=== PATIENT | female | born 1935 | race Caucasian/White ===

== ENCOUNTER 2019-01-28 11:33 | Inpatient (IN) | payer MEDICARE, BC ==
[2019-01-28] MEDS ORDERED: Sodium Chloride 0.9% 1,000 ML IV SCH (12:15)
[2019-01-28] MEDS ORDERED: Piperacillin/Tazobactam 3.375 GM in Sodium Chloride 0.9% 100 ML IV SCH (12:15)
--- NOTE | 2019-01-28 12:32 | PCM.HP ---
H&P History of Present Illness - General Date of Service: 01/28/19 Admit Problem/Dx: Admission Diagnosis/Problem Admission Diagnosis/Problem Cellulitis and abscess of finger Source of Information: Patient History Limitations: Reports: No Limitations - History of Present Illness Initial Comments - Free Text/Narative: Initially evaluated in the clinic for increasing redness and swelling to the R 4th finger. Monday had pulled at at piece of extra tissue at the side/tip of the nail ("hangnail"). Monday started noticing some redness, worse yesterday with swelling. Today the hand was generally swollen, and redness had developed going back up the hand just this morning. Patient has severely limited sensation to all extremities d/t neuropathy and is experiencing no pain. She denies any other trauma to this finger. Onset of Symptoms: Reports: Gradual Symptom Onset Date: 01/26/19 Duration of Symptoms: Reports: Day(s): Location: Reports: Upper Extremity, Right Improves with: Reports: None Worsens with: Reports: None Associated Symptoms: Reports: No Other Symptoms - Related Data Allergies/Adverse Reactions: Allergies Allergy/AdvReac Type Severity Reaction Status Date / Time No Known Allergies Allergy Verified 01/28/19 12:45 Home Medications: Home Meds Cholecalciferol (Vitamin D3) [Vitamin D3] 1,000 unit PO DAILY 12/30/14 [History] Gemfibrozil 600 mg PO BID 12/30/14 [History] Multivitamin [Daily Multiple Vitamin] 1 tab PO DAILY 12/30/14 [History] Propranolol [Propranolol CR 24 Hr] 120 mg PO BID 12/30/14 [History] Triamterene/Hydrochlorothiazid [Triamterene-HCTZ 75-50 MG] 1 each PO DAILY 12/30 [History] metFORMIN [Glucophage] 1 tab-cap PO ASDIRECTED 12/30/14 [History] traMADol [Ultram] 50 mg PO Q4H PRN 12/30/14 [History] Aspirin 0.5 tab PO DAILY 01/28/19 [History] Past Medical History HEENT History: Reports: Impaired Vision Other HEENT History: wears glasses Cardiovascular History: Reports: Heart Murmur, High Cholesterol, Hypertension Respiratory History: Reports: None Gastrointestinal History: Reports: Hepatitis Other Gastrointestinal History: h/o hepatitis Genitourinary History: Reports: None Musculoskeletal History: Reports: Gout Neurological History: Reports: Neuropathy, Peripheral Endocrine/Metabolic History: Reports: Diabetes, Type II - Past Surgical History GI Surgical History: Reports: Appendectomy Female Surgical History: Reports: Breast Biopsy (left and right) H&P Review of Systems - Review of Systems: Review Of Systems: ROS reveals no pertinent complaints other than HPI. Exam - Exam Exam: See Below - Vital Signs Vital Signs: Last Vital Signs Temp 98.3 F 01/28/19 11:56 Pulse 78 01/28/19 11:56 Resp 16 01/28/19 11:56 BP 147/71 H 01/28/19 11:56 Pulse Ox 97 01/28/19 11:56 - Exam General: Alert, Oriented, 4 HEENT: Hearing Intact, Mucosa Moist & [place], Pupils Reactive Neck: Supple, Trachea Midline, 2 Lungs: Clear to Auscultation, Normal Respiratory Effort Cardiovascular: Regular Rate, Regular Rhythm, Systolic Murmur GI/Abdominal Exam: Normal Bowel Sounds, Soft, Non-Tender (Female) Exam: Deferred Rectal (Female) Exam: Deferred Back Exam: Normal Inspection, Full Range of Motion, NT Extremities: No Pedal Edema, Other (see R hand description below) Skin: Warm, Dry, Wound (draining wound distal tip of R 4th finger), Other ( significant heat, swelling and erythema to the R 4th finger. Generalized milder swelling and heat to the hand with erythema tracking back proximally. ) Neurological: Cranial Nerves Intact Neuro Extensive - Mental Status: Alert, Oriented x3, Normal Mood/Affect, Normal Cognition Psychiatric: Alert, Normal Affect, Normal Mood - Problem List (1) Cellulitis and abscess of hand SNOMED Code(s): 763637180, 591484681 ICD Code: L03.119 - CELLULITIS OF UNSPECIFIED PART OF LIMB; L02.519 - CUTANEOUS ABSCESS OF UNSPECIFIED HAND Status: Acute Priority: High Current Visit: Yes Onset Date: ~01/26/19 Problem Details: R 4th finger, acute (2) Diabetes mellitus SNOMED Code(s): 06478319 ICD Code: E11.9 - TYPE 2 DIABETES MELLITUS WITHOUT COMPLICATIONS Status: Chronic Priority: Medium Current Visit: Yes Qualifiers: Diabetes mellitus type: type 2 Diabetes mellitus complication status: with neurologic complications Diabetes mellitus complication detail: with polyneuropathy (3) HTN (hypertension) SNOMED Code(s): 52596097 ICD Code: I10 - ESSENTIAL (PRIMARY) HYPERTENSION Status: Chronic Priority : Medium Current Visit: Yes Qualifiers: Hypertension type: essential hypertension Qualified Code(s): I10 - Essential (primary) hypertension (4) Hyperlipidemia SNOMED Code(s): 69187171 ICD Code: E78.5 - HYPERLIPIDEMIA, UNSPECIFIED Status: Chronic Priority: Low Current Visit: Yes (5) Neuropathy SNOMED Code(s): 300363131 ICD Code: G62.9 - POLYNEUROPATHY, UNSPECIFIED Status: Chronic Priority: Medium Current Visit: Yes Problem List Initiated/Reviewed/Updated: Yes Orders Last 24hrs: Active Orders 24 hr Category Date Time Status Patient Status [ADT] Routine ADT 01/28/19 11:55 Ordered Antiembolic Devices [RC] PER UNIT ROUTINE Care 01/28/19 12:06 Ordered Height and Weight [RC] UPON Care 01/28/19 11:55 Ordered Intake and Output [RC] QSHIFT Care 01/28/19 12:03 Ordered May Shower [RC] ASDIRECTED Care 01/28/19 11:55 Ordered Oxygen Therapy [RC] PRN Care 01/28/19 11:55 Ordered Peripheral IV Care [RC] . DIRECTED Care 01/28/19 12:06 Ordered Up ad Zina [RC] ASDIRECTED Care 01/28/19 11:55 Ordered VTE/DVT Education [RC] PER UNIT ROUTINE Care 01/28/19 11:55 Ordered Vital Signs [RC] Q4H Care 01/28/19 11:55 Ordered [employer] [employer] Diet [DIET] Diet 01/28/19 Lunch Ordered Fingers Fourth Digit Rt F8 [CR] Routine Exams 01/28/19 12:06 Ordered C-REACTIVE PROTEIN [CHEM] AM Lab 01/29/19 05:11 Ordered C-REACTIVE PROTEIN [CHEM] AM Lab 01/30/19 05:11 Ordered C-REACTIVE PROTEIN [CHEM] AM Lab 01/31/19 05:11 Ordered C-REACTIVE PROTEIN [CHEM] AM Lab 02/01/19 05:11 Ordered CBC WITH AUTO DIFF [HEME] AM Lab 01/29/19 05:11 Ordered CBC WITH AUTO DIFF [HEME] AM Lab 01/30/19 05:11 Ordered CBC WITH AUTO DIFF [HEME] AM Lab 01/31/19 05:11 Ordered CBC WITH AUTO DIFF [HEME] AM Lab 02/01/19 05:11 Ordered COMPREHENSIVE METABOLIC PN,CMP [CHEM] AM Lab 01/29/19 05:11 Ordered COMPREHENSIVE METABOLIC PN,CMP [CHEM] AM Lab 01/30/19 05:11 Ordered COMPREHENSIVE METABOLIC PN,CMP [CHEM] AM Lab 01/31/19 05:11 Ordered COMPREHENSIVE METABOLIC PN,CMP [CHEM] AM Lab 02/01/19 05:11 Ordered CULTURE BLOOD [BC] Stat Lab 01/28/19 12:06 Ordered CULTURE BLOOD [BC] Stat Lab 01/28/19 12:06 Ordered CULTURE WOUND + SMEAR [RM] Routine Lab 01/28/19 12:16 Ordered Pharmacy to Dose - Vancomycin Med 01/28/19 12:30 Ordered 1 dose .XX ASDIRECTED Sodium Chloride 0.9% @ 75 MLS/HR(1000ml) Med 01/28/19 12:15 Ordered Sodium Chloride 0.9% [Normal Saline] 1,000 ml IV ASDIRECTED Sodium Chloride 0.9% [Saline Flush] Med 01/28/19 11:55 Ordered 10 ml FLUSH ASDIRECTED PRN cefTAZidime Pentahydrate [Fortaz] Med 01/28/19 16:00 Ordered 1 gm IVPUSH Q8HR Antiembolic Hose [OM.PC] Per Unit Routine Oth 01/28/19 12:04 Ordered Blood Culture x2 Reflex Set [OM.PC] Stat Oth 01/28/19 11:55 Ordered Peripheral IV Insertion Adult [OM.PC] Routine Oth 01/28/19 11:55 Ordered Resuscitation Status Routine Resus Stat 01/28/19 11:55 Ordered Medication Orders Ceftazidime (Fortaz) 1 gm IVPUSH Q8HR PEG Sodium Chloride (Normal Saline) 1,000 mls @ 75 mls/hr IV ASDIRECTED PEG Sodium Chloride (Saline Flush) 10 ml FLUSH ASDIRECTED PRN PRN Reason: Keep Vein Open Vancomycin HCl (Pharmacy To Dose - Vancomycin) 1 dose .XX ASDIRECTED PEG Assessment/Plan Comment:: 01-28-19 Julio Brown PA-C 83 yr-old female admitted to status under the medical management of Dr. Gupta for acute R 4th finger cellullitis, concern for sepsis or osteomyelitis. White count is 18.7. CRP 32.1. Sed rate still pending. Dr. Gupta consulted at the time of admit. Starting IV Vanco and Fortaz. Sample of drainage from the tip of the finger obtained for C&S. This elderly patient with the complications of DM and neuropathy will need at least 96 hours of IP treatment for this acute infection.
[2019-01-28] MEDS: cefTAZidime 1 GM Vial IVPUSH SCH (14:22)
[2019-01-28] MEDS: Sodium Chloride 0.9% 10 ML Syringe FLUSH PRN (14:23)
[2019-01-28] MEDS: traMADol 50 MG Tab PO PRN ×2 (16:47→22:27)
[2019-01-28] MEDS: metroNIDAZOLE/Normal Saline 500 MG in Premix Bag 1 BAG IV SCH (16:50)
[2019-01-28] MEDS: Propranolol 60 MG Cap.ER PO SCH (17:44)
[2019-01-28] MEDS: Gemfibrozil 600 MG Tab PO SCH (17:45)
[2019-01-28] MEDS: metFORMIN 500 MG Tab PO SCH (17:46)
--- NOTE | 2019-01-28 21:28 | PCM.PRNOTE ---
- Free Text/Narrative Note: Patient sustained fall-related laceration over left side of nose that extended over midline. 4cm, irregular, full thickness. Cleansed with betadine. 3cc Lidocaine 1 % injected into wound margins for anesthesia. No debris noted. Closed with 7 interrupted 4-0 nylon sutures externally. Topical antibiotic and dressing applied by nursing staff
[2019-01-28] MEDS ORDERED: Bacitracin/Neomycin/Polymyxin B Oint 0.9 GM U/D Packet TOP ONE (21:46)
[2019-01-29] MEDS: metroNIDAZOLE/Normal Saline 500 MG in Premix Bag 1 BAG IV SCH ×3 (00:50→16:27)
[2019-01-29] MEDS: cefTAZidime 1 GM Vial IVPUSH SCH ×2 (02:10→14:24)
[2019-01-29] MEDS: Sodium Chloride 0.9% 10 ML Syringe FLUSH PRN ×2 (02:10→14:25)
--- NOTE | 2019-01-29 03:02 | PCM.SN ---
- Free Text/Narrative Note: Patient fell in room this evening, blames it on "stepping on pajamas". Fell to the ground, denies hitting any furniture. Had no LOC, but did injure nose. Denies other injuries, such as injuries to limbs/trunk. Laceration of nose noted. Denies hitting other parts of head. No pain in C-spine or rest of spine. On exam there was a 4cm laceration across patient's mid/lower nose. Palpation did not show any laxity of nasal bones. No pain/depression noted with palpation of skull. Neck and spine nontender. Orbits appear intact as do maxillary regions. No obvious dental trauma. Patient able to open and close jaw well. Early swelling and bruising around nose and left cheek area. No respiratory distress. Brisk cap refill. Limbs/abdomen non-tender. Patient able to move around well and transfer self. Laceration closed as per procedure note. CT of face obtained. Confirmed nasal bone fracture on left. Also noted small subdural hematoma. CT of entire head then obtained, and no further additional bleeds identified. No other injuries identified. Discussed the small subdural with on-call Neurosurgeon at [place]. He did not recommend any additional evaluation of the bleed at this time, nor did he specify a need to repeat the scan at any particular interval. Neuro checks ordered on patient. Consider re-scan in 24-48 hours to verify that small bleed remains stable and has not changed.
[2019-01-29] MEDS: Hydrochlorothiazide/Triamterene 50-75 MG Tab PO SCH (07:47)
[2019-01-29] MEDS: Propranolol 60 MG Cap.ER PO SCH ×2 (07:47→17:13)
[2019-01-29] MEDS: metFORMIN 500 MG Tab PO SCH ×2 (07:47→17:13)
[2019-01-29] MEDS: Gemfibrozil 600 MG Tab PO SCH ×2 (07:47→17:13)
[2019-01-29] MEDS ORDERED: Aspirin 325 MG Tab PO SCH (08:00)
[2019-01-29] MEDS: traMADol 50 MG Tab PO PRN ×2 (16:24→21:01)
[2019-01-29] MEDS: Sodium Chloride 0.9% 10 ML Syringe FLUSH SCH (19:48)
--- NOTE | 2019-01-29 22:58 | PCM.PN ---
- General Info Date of Service: 01/29/19 Admission Dx/Problem (Free Text): Admission Diagnosis/Problem Admission Diagnosis/Problem Cellulitis and abscess of finger Functional Status: Reports: Pain Controlled, Tolerating Diet - Review of Systems General: Reports: Other (fall last night tripped on [employer]) HEENT: Reports: Other (ecchymosis left periorbital, repaired laceration left side of nose) Pulmonary: Reports: No Symptoms Cardiovascular: Reports: No Symptoms Gastrointestinal: Reports: No Symptoms Genitourinary: Reports: No Symptoms Musculoskeletal: Reports: Foot Pain (chronic), Other (right 4th finger swollen, decreased ROM ) Skin: Reports: Cyanosis (right 4th finger, redness, blackened on end) Neurological: Reports: Numbness (hands, fingers, feet and toes all bilateral), Paresthesia (hands, fingers, feet, toes all bilateral), Pre-Existing Deficit, Difficulty Walking (due to neuropathy) Psychiatric: Reports: No Symptoms - Patient Data Vitals - Most Recent: Last Vital Signs Temp 97.9 F 01/29/19 19:48 Pulse 73 01/29/19 19:48 Resp 18 01/29/19 19:48 BP 141/71 H 01/29/19 19:48 Pulse Ox 97 01/29/19 19:48 Weight - Most Recent: 115 lb 14.387 oz I&O - Last 24 Hours: Intake & Output 01/29/19 01/29/19 01/29/19 06:59 14:59 22:59 Intake Total 96 845 1625 Output Total 400 1100 Balance 96 445 525 Lab Results Last 24 Hours: Laboratory Results - last 24 hr 01/29/19 01/29/19 Range/Units 06:53 06:53 WBC 12.7 H (4.0-10.2) K/uL RBC 2.90 L (3.77-5.09) M/uL Hgb 9.4 L (11.7-15.5) g/dL Hct 26.8 L (34.0-46.0) % MCV 92.4 (84.0-98.0) fL MCH 32.4 (28.2-33.3) pg MCHC 35.1 (31.7-36.0) g/dL RDW 12.8 (11.2-14.1) % Plt Count 183 (150-350) K/uL Neut % (Auto) 76.3 (45.0-80.0) % Lymph % (Auto) 13.2 (10.0-50.0) % Schuyler % (Auto) 9.7 (2.0-14.0) % Eos % (Auto) 0.6 (0.0-5.0) % Baso % (Auto) 0.2 (0.0-2.0) % Neut # (Auto) 9.68 H (1.40-7.00) K/uL Lymph # (Auto) 1.67 (0.50-3.50) K/uL [place] # (Auto) 1.23 H (0.00-1.00) K/uL Eos # (Auto) 0.08 (0.00-0.50) K/uL Baso # (Auto) 0.02 (0.00-0.20) K/uL Sodium 135 L (136-145) mmol/L Potassium 3.5 (3.5-5.1) mmol/L Chloride 99 (98-107) mmol/L Carbon Dioxide 23.6 (21.0-32.0) mmol/L BUN 33 H (7-18) mg/dL Creatinine 0.93 (0.51-1.17) mg/dL Est Cr Clr Drug Dosing 34.62 mL/min Estimated GFR (MDRD) 58 mL/min Glucose 186 H (74-106) mg/dL Calcium 9.1 (8.5-10.1) mg/dL Total Bilirubin 0.5 (0.2-1.0) mg/dL AST 28 (15-37) U/L ALT 15 (12-78) U/L Alkaline Phosphatase 112 (46-116) IU/L C-Reactive Protein 33.0 H (<=0.9) mg/dL Total Protein 6.3 L (6.4-8.2) g/dL Albumin 2.4 L (3.4-5.0) g/dL Panda Results Last 24 Hours: Microbiology 01/28/19 12:40 Aerobic Blood Culture - Preliminary Blood - Venous - Lab Draw NO GROWTH AFTER 1 DAY Anaerobic Blood Culture - Preliminary NO GROWTH AFTER 1 DAY 01/28/19 12:15 Aerobic Blood Culture - Preliminary Blood - Venous NO GROWTH AFTER 1 DAY Anaerobic Blood Culture - Preliminary NO GROWTH AFTER 1 DAY Med Orders - Current: Current Medications Ceftazidime (Fortaz) 1 gm IVPUSH Q12H [facility] Last Admin: 01/29/19 14:24 Dose: 1 gm Gemfibrozil (Lopid) 600 mg PO BIDAC [facility] Last Admin: 01/29/19 17:13 Dose: 600 mg Metronidazole 500 mg/ Premix 100 mls @ 100 mls/hr IV Q8H [facility] Last Admin: 01/29/19 16:27 Dose: 100 mls/hr Vancomycin HCl 0.75 gm/ Sodium (Chloride) 250 mls @ 215 mls/hr IV Q24H [facility] Last Admin: 01/29/19 14:24 Dose: 215 mls/hr Metformin HCl (Glucophage) 500 mg PO BID [facility] Last Admin: 01/29/19 17:13 Dose: 500 mg Propranolol HCl (Inderal La) 120 mg PO BID [facility] Last Admin: 01/29/19 17:13 Dose: 120 mg Sodium Chloride (Saline Flush) 10 ml FLUSH ASDIRECTED PRN PRN Reason: Keep Vein Open Last Admin: 01/29/19 14:25 Dose: 10 ml Sodium Chloride (Saline Flush) 10 ml FLUSH Q12HR [facility] Last Admin: 01/29/19 19:48 Dose: Not Given Tramadol HCl (Ultram) 50 mg PO Q4H PRN PRN Reason: Pain (moderate 4-6) Last Admin: 01/29/19 21:01 Dose: 50 mg Triamterene/HCTZ (Maxzide 50-75 Mg) 1 each PO DAILY [facility] Last Admin: 01/29/19 07:47 Dose: 1 each Vancomycin HCl (Pharmacy To Dose - Vancomycin) 1 dose .XX ASDIRECTED [facility] Discontinued Medications Aspirin (Aspirin) 162.5 mg PO DAILY [facility] Gemfibrozil (Lopid) 600 mg PO BID [facility] Last Admin: 01/29/19 07:47 Dose: 600 mg Piperacillin Sod/Tazobactam (Sod 3.375 gm/ Sodium Chloride) 100 mls @ 200 mls/ hr IV Q6H [facility] Last Admin: 01/28/19 13:50 Dose: Not Given Sodium Chloride (Normal Saline) 1,000 mls @ 75 mls/hr IV ASDIRECTED [facility] Last Admin: 01/29/19 13:18 Dose: 75 mls/hr Lidocaine HCl (Xylocaine-Mpf 1%) 5 ml INJECT ONETIME ONE Stop: 01/28/19 21:03 Last Admin: 01/28/19 21:04 Dose: 5 ml Neomycin/Polymyxin/Bacitracin (Triple Antibiotic Oint) 1 each TOP ONETIME ONE Stop: 01/28/19 21:47 Last Admin: 01/28/19 22:27 Dose: 1 each - Exam Quality Assessment: Skin Breakdown (right 4th finger) General: Alert, Cooperative HEENT: Pupils Equal, Pupils Reactive, EOMI, Mucous Membr. Moist/[place] Neck: Trachea Midline, No JVD Lungs: Clear to Auscultation, Normal Respiratory Effort Cardiovascular: Regular Rate, Regular Rhythm GI/Abdominal Exam: Soft, Non-Tender, No Distention (Female) Exam: Deferred Back Exam: Normal Inspection Extremities: Increased Warmth (right 4th finger), Redness (right 4th finger, also swelling, white pus under skin around nail, blackened on tip) Skin: Warm, Dry, Intact, Other (red streaks right arm are receding, see description of right 4th finger) Wound/Incisions: Drainage, Erythema Improving, Other (finger still markedly swollen, red/purple color, black on tip of finger) Neurological: No New Focal Deficit, Other (pre-existing deficit) Psy/Mental Status: Alert, Normal Affect, Normal Mood - Problem List & Annotations (1) Necrotizing erysipelas SNOMED Code(s): 88483566 Code(s): M72.6 - NECROTIZING FASCIITIS Status: Acute Priority: High Current Visit: Yes (2) Erysipelas SNOMED Code(s): 21779275 Code(s): A46 - ERYSIPELAS Status: Acute Current Visit: Yes (3) Cellulitis and abscess of hand SNOMED Code(s): 760595236, 178662998 Code(s): L03.119 - CELLULITIS OF UNSPECIFIED PART OF LIMB; L02.519 - CUTANEOUS ABSCESS OF UNSPECIFIED HAND Status: Acute Priority: High Current Visit: Yes Onset Date: ~01/26/19 Annotation/Comment:: R 4th finger, acute (4) Acute subdural hematoma SNOMED Code(s): 135138214, 248825651 Code(s): S06.5X9A - TRAUM SUBDR HEM W LOC OF UNSP DURATION, INIT Status: Acute Current Visit: No (5) Fall SNOMED Code(s): 2496537, 867684353 Code(s): W19.XXXA - UNSPECIFIED FALL, INITIAL ENCOUNTER Status: Acute Current Visit: No (6) Diabetes mellitus SNOMED Code(s): 37849167 Code(s): E11.9 - TYPE 2 DIABETES MELLITUS WITHOUT COMPLICATIONS Status: Chronic Priority: Medium Current Visit: Yes Qualifiers: Diabetes mellitus type: type 2 Diabetes mellitus complication status: with neurologic complications Diabetes mellitus complication detail: with polyneuropathy (7) HTN (hypertension) SNOMED Code(s): 27334822 Code(s): I10 - ESSENTIAL (PRIMARY) HYPERTENSION Status: Chronic Priority : Medium Current Visit: Yes Qualifiers: Hypertension type: essential hypertension Qualified Code(s): I10 - Essential (primary) hypertension (8) Hyperlipidemia SNOMED Code(s): 87500661 Code(s): E78.5 - HYPERLIPIDEMIA, UNSPECIFIED Status: Chronic Priority: Low Current Visit: Yes (9) Neuropathy SNOMED Code(s): 976168167 Code(s): G62.9 - POLYNEUROPATHY, UNSPECIFIED Status: Chronic Priority: Medium Current Visit: Yes (10) Nasal bones, closed fracture SNOMED Code(s): 65422904 Code(s): S02.2XXA - FRACTURE OF NASAL BONES, INIT ENCNTR FOR CLOSED FRACTURE Status: Acute Priority: High Current Visit: Yes Qualifiers: Encounter type: initial encounter Qualified Code(s): S02.2XXA - Fracture of nasal bones, initial encounter for closed fracture (11) Nasal laceration SNOMED Code(s): 390806873 Code(s): S01.21XA - LACERATION WITHOUT FOREIGN BODY OF NOSE, INITIAL ENCOUNTER Status: Acute Priority: High Current Visit: Yes Qualifiers: Encounter type: subsequent encounter Qualified Code(s): S01.21XD - Laceration without foreign body of nose, subsequent encounter - Problem List Review Problem List Initiated/Reviewed/Updated: Yes - My Orders Last 24 Hours: My Active Orders 01/29/19 16:52 CULTURE WOUND + SMEAR [RM] Routine 01/29/19 20:00 Sodium Chloride 0.9% [Saline Flush] 10 ml FLUSH Q12HR 01/30/19 05:11 Head wo Cont [CT] Routine LACTIC ACID [CHEM] Routine 01/31/19 08:00 Bone Scan 3 Phase [NM] Routine - Plan Plan:: 01-28-19 Julio Brown PA-C 83 yr-old female admitted to IP status under the medical management of Dr. Gupta for acute R 4th finger cellullitis, concern for sepsis or osteomyelitis. White count is 18.7. CRP 32.1. Sed rate still pending. Dr. Gupta consulted at the time of admit. Starting IV Vanco and Fortaz. Sample of drainage from the tip of the finger obtained for C&S. This elderly patient with the complications of DM and neuropathy will need at least 96 hours of IP treatment for this acute infection. 01/29/19 Alonso Shelton MD The right 4th finger is still very swollen, red, warm, blue, purplish, black at the tip of finger. The red streaks on forearm and wrist area are starting to recede. X-ray questions osteomyelitis. Will obtain bone scan or CT. Continue IV antibiotics. She also had a fall last night. Small subdural hematoma, nasal fracture, nasal laceration repaired. Neuro checks WNL.
[2019-01-30] MEDS: metroNIDAZOLE/Normal Saline 500 MG in Premix Bag 1 BAG IV SCH ×3 (00:59→16:30)
[2019-01-30] MEDS: Sodium Chloride 0.9% 10 ML Syringe FLUSH PRN ×4 (00:59→14:16)
[2019-01-30] MEDS: cefTAZidime 1 GM Vial IVPUSH SCH ×2 (01:00→14:16)
[2019-01-30] MEDS: traMADol 50 MG Tab PO PRN (07:25)
[2019-01-30] MEDS: Sodium Chloride 0.9% 10 ML Syringe FLUSH SCH ×2 (07:38→19:31)
[2019-01-30] MEDS: Propranolol 60 MG Cap.ER PO SCH ×2 (07:39→17:09)
[2019-01-30] MEDS: metFORMIN 500 MG Tab PO SCH (07:40)
[2019-01-30] MEDS: Hydrochlorothiazide/Triamterene 50-75 MG Tab PO SCH (07:40)
[2019-01-30] MEDS: Gemfibrozil 600 MG Tab PO SCH (07:41)
[2019-01-30 08:04] LABS: CHLORIDE,CL 97 mmol/L (98-107); SODIUM,NA 135 mmol/L (136-145)
[2019-01-30] MEDS: Morphine 2 MG/ML Syringe IVPUSH PRN ×2 (08:31→10:32)
--- NOTE | 2019-01-30 10:31 | PCM.SN ---
- Free Text/Narrative Note: 01-30-19 Julio Brown PA-C Received call from RN this morning that pt had c/o severe back pain, between shoulder blades. Tramadol had given no relief. O2 sat 90%, pt breathing a little rapidly possible from the severe pain. No CP. Ordered labs and spinal x -rays to evaluate for possible compression fracture vs cardiac or pulmonary etiology. STAT read from Dr. Stinson on x-rays negative, he also read the repeat head CT scan as no change to the subdural hematoma. Troponin 0.000. D. Dimer 3540, chest CT scan with PE protocol ordered, with STAT read requested. Oxygen is on. Had order MSO4 2mg Q2H prn pain. Dr. Gupta notified.
[2019-01-30] MEDS ORDERED: Iopamidol 755 Mg/ML 100 ML Bottle IVPUSH ONE (10:34)
[2019-01-30] MEDS ORDERED: Morphine 2 MG/ML Syringe IVPUSH ONE (11:32)
[2019-01-30] MEDS ORDERED: Ondansetron 4 MG/2 ML SDV IVPUSH ONE (11:38)
[2019-01-30 11:55] LABS: O2 DELIVERY DEVICE NASAL CANNULA
[2019-01-30 11:59] LABS: BASE EXCESS VENOUS -4 mmol/L ((-2)-3); BICARBONATE,VENOUS 21 mmol/L (23-28); O2 SATURATION VENOUS 68 %; PCO2 VENOUS 39 mmHG (41-51); PH,VENOUS 7.35 (7.31-7.41); PO2 VENOUS 37 mmHG
[2019-01-30] MEDS ORDERED: hydrOXYzine HCl 50 MG/ML SDV IM PRN (12:00)
[2019-01-30] MEDS ORDERED: Furosemide 40 MG/4 ML VIAL IVPUSH ONE (13:10)
[2019-01-30] MEDS ORDERED: Ondansetron 4 MG/2 ML SDV IVPUSH PRN (16:00)
--- NOTE | 2019-01-30 21:40 | PCM.PN ---
- General Info Date of Service: 01/30/19 Admission Dx/Problem (Free Text): Admission Diagnosis/Problem Admission Diagnosis/Problem Cellulitis and abscess of finger Functional Status: Reports: Pain Controlled - Review of Systems General: Reports: No Symptoms HEENT: Reports: No Symptoms Pulmonary: Reports: No Symptoms Cardiovascular: Reports: No Symptoms Gastrointestinal: Reports: No Symptoms Genitourinary: Reports: No Symptoms Musculoskeletal: Reports: Back Pain (between the shoulder pains) Skin: Reports: Pallor (right 4th finger) Neurological: Reports: Pre-Existing Deficit (severe neuropathy) Psychiatric: Reports: No Symptoms - Patient Data Vitals - Most Recent: Last Vital Signs Temp 98 F 01/30/19 20:00 Pulse 80 01/30/19 20:00 Resp 18 01/30/19 20:00 BP 114/72 01/30/19 20:00 Pulse Ox 96 01/30/19 20:00 Weight - Most Recent: 115 lb 14.387 oz I&O - Last 24 Hours: Intake & Output 01/30/19 01/30/19 01/30/19 06:59 14:59 22:59 Intake Total 744 942 8853 Output Total 500 600 Balance -200 470 960 Lab Results Last 24 Hours: Laboratory Results - last 24 hr 01/30/19 01/30/19 01/30/19 Range/Units 07:03 07:03 07:03 WBC 14.1 H (4.0-10.2) K/uL RBC 3.10 L (3.77-5.09) M/uL Hgb 9.9 L (11.7-15.5) g/dL Hct 28.8 L (34.0-46.0) % MCV 92.9 (84.0-98.0) fL MCH 31.9 (28.2-33.3) pg MCHC 34.4 (31.7-36.0) g/dL RDW 12.6 (11.2-14.1) % Plt Count 265 D (150-350) K/uL Neut % (Auto) 79.6 (45.0-80.0) % Lymph % (Auto) 10.3 (10.0-50.0) % Amelia % (Auto) 9.1 (2.0-14.0) % Eos % (Auto) 0.9 (0.0-5.0) % Baso % (Auto) 0.1 (0.0-2.0) % Neut # (Auto) 11.18 H (1.40-7.00) K/uL Lymph # (Auto) 1.45 (0.50-3.50) K/uL Amelia # (Auto) 1.28 H (0.00-1.00) K/uL Eos # (Auto) 0.13 (0.00-0.50) K/uL Baso # (Auto) 0.02 (0.00-0.20) K/uL PT (9.5-12.0) SEC INR APTT (21.0-31.3) SEC D-Dimer, Quantitative (0-400) ng/mL VBG pH (7.31-7.41) VBG pCO2 (41-51) mmHG VBG pO2 mmHG VBG HCO3 (23-28) mmol/L VBG Total CO2 mmol/L VBG O2 Saturation % VBG Base Excess ((-2)-3) mmol/L O2 Delivery Device Sodium 135 L (136-145) mmol/L Potassium 3.7 (3.5-5.1) mmol/L Chloride 97 L (98-107) mmol/L Carbon Dioxide 23.4 (21.0-32.0) mmol/L BUN 24 H (7-18) mg/dL Creatinine 0.86 (0.51-1.17) mg/dL Est Cr Clr Drug Dosing 37.44 mL/min Estimated GFR (MDRD) > 60 mL/min Glucose 184 H (74-106) mg/dL Lactic Acid 1.5 (0.4-2.0) mmol/L Calcium 9.4 (8.5-10.1) mg/dL Total Bilirubin 0.6 (0.2-1.0) mg/dL AST 33 (15-37) U/L ALT 19 (12-78) U/L Alkaline Phosphatase 119 H (46-116) IU/L Creatine Kinase (26-308) U/L Creatine Kinase Index (0.0-2.5) % CK-MB (CK-2) (0.00-3.60) ng/mL Troponin I (0.000-0.056) ng/mL C-Reactive Protein 21.5 H (<=0.9) mg/dL Total Protein 7.2 (6.4-8.2) g/dL Albumin 2.8 L (3.4-5.0) g/dL Vancomycin Trough (10-20) ug/mL 01/30/19 01/30/19 01/30/19 Range/Units 07:03 07:03 07:03 WBC (4.0-10.2) K/uL RBC (3.77-5.09) M/uL Hgb (11.7-15.5) g/dL Hct (34.0-46.0) % MCV (84.0-98.0) fL MCH (28.2-33.3) pg MCHC (31.7-36.0) g/dL RDW (11.2-14.1) % Plt Count (150-350) K/uL Neut % (Auto) (45.0-80.0) % Lymph % (Auto) (10.0-50.0) % Amelia % (Auto) (2.0-14.0) % Eos % (Auto) (0.0-5.0) % Baso % (Auto) (0.0-2.0) % Neut # (Auto) (1.40-7.00) K/uL Lymph # (Auto) (0.50-3.50) K/uL Amelia # (Auto) (0.00-1.00) K/uL Eos # (Auto) (0.00-0.50) K/uL Baso # (Auto) (0.00-0.20) K/uL PT (9.5-12.0) SEC INR APTT (21.0-31.3) SEC D-Dimer, Quantitative 3540 H (0-400) ng/mL VBG pH (7.31-7.41) VBG pCO2 (41-51) mmHG VBG pO2 mmHG VBG HCO3 (23-28) mmol/L VBG Total CO2 mmol/L VBG O2 Saturation % VBG Base Excess ((-2)-3) mmol/L O2 Delivery Device Sodium (136-145) mmol/L Potassium (3.5-5.1) mmol/L Chloride (98-107) mmol/L Carbon Dioxide (21.0-32.0) mmol/L BUN (7-18) mg/dL Creatinine (0.51-1.17) mg/dL Est Cr Clr Drug Dosing mL/min Estimated GFR (MDRD) mL/min Glucose (74-106) mg/dL Lactic Acid (0.4-2.0) mmol/L Calcium (8.5-10.1) mg/dL Total Bilirubin (0.2-1.0) mg/dL AST (15-37) U/L ALT (12-78) U/L Alkaline Phosphatase (46-116) IU/L Creatine Kinase 202 (26-308) U/L Creatine Kinase Index 1.2 (0.0-2.5) % CK-MB (CK-2) 2.40 (0.00-3.60) ng/mL Troponin I 0.000 (0.000-0.056) ng/mL C-Reactive Protein (<=0.9) mg/dL Total Protein (6.4-8.2) g/dL Albumin (3.4-5.0) g/dL Vancomycin Trough (10-20) ug/mL 01/30/19 01/30/19 01/30/19 Range/Units 11:54 11:54 13:29 WBC (4.0-10.2) K/uL RBC (3.77-5.09) M/uL Hgb (11.7-15.5) g/dL Hct (34.0-46.0) % MCV (84.0-98.0) fL MCH (28.2-33.3) pg MCHC (31.7-36.0) g/dL RDW (11.2-14.1) % Plt Count (150-350) K/uL Neut % (Auto) (45.0-80.0) % Lymph % (Auto) (10.0-50.0) % Amelia % (Auto) (2.0-14.0) % Eos % (Auto) (0.0-5.0) % Baso % (Auto) (0.0-2.0) % Neut # (Auto) (1.40-7.00) K/uL Lymph # (Auto) (0.50-3.50) K/uL Amelia # (Auto) (0.00-1.00) K/uL Eos # (Auto) (0.00-0.50) K/uL Baso # (Auto) (0.00-0.20) K/uL PT 11.7 (9.5-12.0) SEC INR 1.1 APTT 35.0 H (21.0-31.3) SEC D-Dimer, Quantitative (0-400) ng/mL VBG pH 7.35 (7.31-7.41) VBG pCO2 39 L (41-51) mmHG VBG pO2 37 mmHG VBG HCO3 21 L (23-28) mmol/L VBG Total CO2 23 mmol/L VBG O2 Saturation 68 % VBG Base Excess -4 L ((-2)-3) mmol/L O2 Delivery Device Nasal cannula Sodium (136-145) mmol/L Potassium (3.5-5.1) mmol/L Chloride (98-107) mmol/L Carbon Dioxide (21.0-32.0) mmol/L BUN (7-18) mg/dL Creatinine (0.51-1.17) mg/dL Est Cr Clr Drug Dosing mL/min Estimated GFR (MDRD) mL/min Glucose (74-106) mg/dL Lactic Acid (0.4-2.0) mmol/L Calcium (8.5-10.1) mg/dL Total Bilirubin (0.2-1.0) mg/dL AST (15-37) U/L ALT (12-78) U/L Alkaline Phosphatase (46-116) IU/L Creatine Kinase (26-308) U/L Creatine Kinase Index (0.0-2.5) % CK-MB (CK-2) (0.00-3.60) ng/mL Troponin I (0.000-0.056) ng/mL C-Reactive Protein (<=0.9) mg/dL Total Protein (6.4-8.2) g/dL Albumin (3.4-5.0) g/dL Vancomycin Trough 8.8 L (10-20) ug/mL Panda Results Last 24 Hours: Microbiology 01/28/19 12:40 Aerobic Blood Culture - Preliminary Blood - Venous - Lab Draw NO GROWTH AFTER 2 DAYS Anaerobic Blood Culture - Preliminary NO GROWTH AFTER 2 DAYS 01/28/19 12:15 Aerobic Blood Culture - Preliminary Blood - Venous NO GROWTH AFTER 2 DAYS Anaerobic Blood Culture - Preliminary NO GROWTH AFTER 2 DAYS 01/29/19 17:00 Gram Stain - Final Finger, Right Wound Culture - Final Staphylococcus Aureus 01/28/19 11:00 Wound Culture - Final Finger, Right - Right Ring Staphylococcus Aureus Med Orders - Current: Current Medications Ceftazidime (Fortaz) 1 gm IVPUSH Q12H [facility] Last Admin: 01/30/19 14:16 Dose: 1 gm Hydroxyzine HCl (Vistaril) 25 mg IM Q4H PRN PRN Reason: Nausea/Vomiting Metronidazole 500 mg/ Premix 100 mls @ 100 mls/hr IV Q8H [facility] Last Admin: 01/30/19 16:30 Dose: 100 mls/hr Vancomycin HCl 1 gm/ Sodium (Chloride) 250 mls @ 165 mls/hr IV Q24H [facility] Last Admin: 01/30/19 14:32 Dose: 165 mls/hr Morphine Sulfate (Morphine) 2 mg IVPUSH Q2H PRN PRN Reason: Pain Last Admin: 01/30/19 10:32 Dose: 2 mg Ondansetron HCl (Zofran) 4 mg IVPUSH Q4H PRN PRN Reason: Nausea/Vomiting Propranolol HCl (Inderal La) 120 mg PO BID [facility] Last Admin: 01/30/19 17:09 Dose: 120 mg Sodium Chloride (Saline Flush) 10 ml FLUSH ASDIRECTED PRN PRN Reason: Keep Vein Open Last Admin: 01/30/19 14:16 Dose: 10 ml Sodium Chloride (Saline Flush) 10 ml FLUSH Q12HR [facility] Last Admin: 01/30/19 19:31 Dose: 10 ml Tramadol HCl (Ultram) 50 mg PO Q4H PRN PRN Reason: Pain (moderate 4-6) Last Admin: 01/30/19 07:25 Dose: 50 mg Triamterene/HCTZ (Maxzide 50-75 Mg) 1 each PO DAILY [facility] Last Admin: 01/30/19 07:40 Dose: 1 each Vancomycin HCl (Pharmacy To Dose - Vancomycin) 1 dose .XX ASDIRECTED [facility] Discontinued Medications Aspirin (Aspirin) 162.5 mg PO DAILY [facility] Furosemide (Lasix) 20 mg IVPUSH NOW ONE Stop: 01/30/19 13:11 Last Admin: 01/30/19 14:16 Dose: 20 mg Gemfibrozil (Lopid) 600 mg PO BID [facility] Last Admin: 01/29/19 07:47 Dose: 600 mg [facility] Admin: 01/30/19 07:41 Dose: 600 mg Piperacillin Sod/Tazobactam (Sod 3.375 gm/ Sodium Chloride) 100 mls @ 200 mls/ hr IV Q6H [facility] Last Admin: 01/28/19 13:50 Dose: Not Given Sodium Chloride (Normal Saline) 1,000 mls @ 75 mls/hr IV ASDIRECTED [facility] Last Admin: 01/29/19 13:18 Dose: 75 mls/hr Vancomycin HCl 0.75 gm/ Sodium (Chloride) 250 mls @ 215 mls/hr IV Q24H [facility] Last Admin: 01/30/19 16:01 Dose: Not Given Iopamidol (Isovue-370 (76%)) 100 ml IVPUSH ONETIME ONE Stop: 01/30/19 10:35 Last Admin: 01/30/19 11:15 Dose: 100 ml Lidocaine HCl (Xylocaine-Mpf 1%) 5 ml INJECT ONETIME ONE Stop: 01/28/19 21:03 Last Admin: 01/28/19 21:04 Dose: 5 ml Metformin HCl (Glucophage) 500 mg PO BID [facility] Last Admin: 01/30/19 07:40 Dose: 500 mg Morphine Sulfate (Morphine) 2 mg IVPUSH ONETIME ONE Stop: 01/30/19 11:33 Last Admin: 01/30/19 11:44 Dose: 2 mg Neomycin/Polymyxin/Bacitracin (Triple Antibiotic Oint) 1 each TOP ONETIME ONE Stop: 01/28/19 21:47 Last Admin: 01/28/19 22:27 Dose: 1 each Ondansetron HCl (Zofran) 4 mg IVPUSH ONETIME ONE Stop: 01/30/19 11:39 Last Admin: 01/30/19 11:51 Dose: 4 mg - Exam Quality Assessment: Skin Breakdown (right 4th finger) General: Alert, Cooperative, Mild Distress HEENT: Mucous Membr. Moist/[place] Neck: Trachea Midline, JVD Lungs: Decreased Breath Sounds, Crackles, Other (respiratory effort slightly labored) Cardiovascular: Regular Rate, Regular Rhythm, Murmurs GI/Abdominal Exam: Soft, Non-Tender, No Distention (Female) Exam: Deferred Back Exam: Muscle Spasm (para thoracic), Paraspinal Tenderness (thoracic), Other (kyphosis) Extremities: Limited Range of Motion (right 4th finger), Pallor (right 4th finger), Other (necrotic end of right 4th finger) Skin: Warm, Dry, Intact, Other (see discription of right 4th finger) Neurological: No New Focal Deficit Psy/Mental Status: Alert, Normal Affect, Normal Mood - Problem List & Annotations (1) Necrotizing erysipelas SNOMED Code(s): 11949588 Code(s): M72.6 - NECROTIZING FASCIITIS Status: Acute Priority: High Current Visit: Yes (2) Erysipelas SNOMED Code(s): 81584987 Code(s): A46 - ERYSIPELAS Status: Acute Current Visit: Yes (3) Cellulitis and abscess of hand SNOMED Code(s): 510472018, 098430908 Code(s): L03.119 - CELLULITIS OF UNSPECIFIED PART OF LIMB; L02.519 - CUTANEOUS ABSCESS OF UNSPECIFIED HAND Status: Acute Priority: High Current Visit: Yes Onset Date: ~01/26/19 Annotation/Comment:: R 4th finger, acute (4) Acute subdural hematoma SNOMED Code(s): 034158787, 303060776 Code(s): S06.5X9A - TRAUM SUBDR HEM W LOC OF UNSP DURATION, INIT Status: Acute Current Visit: No (5) Fall SNOMED Code(s): 0806257, 340280735 Code(s): W19.XXXA - UNSPECIFIED FALL, INITIAL ENCOUNTER Status: Acute Current Visit: No (6) Diabetes mellitus SNOMED Code(s): 53337261 Code(s): E11.9 - TYPE 2 DIABETES MELLITUS WITHOUT COMPLICATIONS Status: Chronic Priority: Medium Current Visit: Yes Qualifiers: Diabetes mellitus type: type 2 Diabetes mellitus complication status: with neurologic complications Diabetes mellitus complication detail: with polyneuropathy (7) HTN (hypertension) SNOMED Code(s): 73531076 Code(s): I10 - ESSENTIAL (PRIMARY) HYPERTENSION Status: Chronic Priority : Medium Current Visit: Yes Qualifiers: Hypertension type: essential hypertension Qualified Code(s): I10 - Essential (primary) hypertension (8) Hyperlipidemia SNOMED Code(s): 54012801 Code(s): E78.5 - HYPERLIPIDEMIA, UNSPECIFIED Status: Chronic Priority: Low Current Visit: Yes (9) Neuropathy SNOMED Code(s): 868964296 Code(s): G62.9 - POLYNEUROPATHY, UNSPECIFIED Status: Chronic Priority: Medium Current Visit: Yes (10) Nasal bones, closed fracture SNOMED Code(s): 92543475 Code(s): S02.2XXA - FRACTURE OF NASAL BONES, INIT ENCNTR FOR CLOSED FRACTURE Status: Acute Priority: High Current Visit: Yes Qualifiers: Encounter type: initial encounter Qualified Code(s): S02.2XXA - Fracture of nasal bones, initial encounter for closed fracture (11) Nasal laceration SNOMED Code(s): 590758724 Code(s): S01.21XA - LACERATION WITHOUT FOREIGN BODY OF NOSE, INITIAL ENCOUNTER Status: Acute Priority: High Current Visit: Yes Qualifiers: Encounter type: subsequent encounter Qualified Code(s): S01.21XD - Laceration without foreign body of nose, subsequent encounter (12) Strain of thoracic paraspinal muscles excluding T1 and T2 levels SNOMED Code(s): 06579599 Code(s): S29.012A - STRAIN OF MUSCLE AND TENDON OF BACK WALL OF THORAX, INIT Status: Acute Priority: High Current Visit: Yes Qualifiers: Encounter type: initial encounter Qualified Code(s): S29.012A - Strain of muscle and tendon of back wall of thorax, initial encounter (13) Elevated d-dimer SNOMED Code(s): 136176924 Code(s): R79.89 - OTHER SPECIFIED ABNORMAL FINDINGS OF BLOOD CHEMISTRY Status: Acute Priority: High Current Visit: Yes (14) Pleural effusion SNOMED Code(s): 85375376 Code(s): J90 - PLEURAL EFFUSION, NOT ELSEWHERE CLASSIFIED Status: Acute Priority: High Current Visit: Yes - Problem List Review Problem List Initiated/Reviewed/Updated: Yes - My Orders Last 24 Hours: My Active Orders 01/30/19 05:11 Head wo Cont [CT] Routine 01/30/19 08:00 Notify Provider Consults [RC] ASDIRECTED Consult to Physician [CONS] Urgent 01/30/19 12:00 hydrOXYzine HCl [Vistaril] 25 mg IM Q4H PRN 01/30/19 16:00 Ondansetron [Zofran] 4 mg IVPUSH Q4H PRN 01/31/19 08:00 Bone Scan 3 Phase [NM] Routine - Plan Plan:: 01-28-19 Julio Brown PA-C 83 yr-old female admitted to IP status under the medical management of Dr. Gupta for acute R 4th finger cellullitis, concern for sepsis or osteomyelitis. White count is 18.7. CRP 32.1. Sed rate still pending. Dr. Gupta consulted at the time of admit. Starting IV Vanco and Fortaz. Sample of drainage from the tip of the finger obtained for C&S. This elderly patient with the complications of DM and neuropathy will need at least 96 hours of IP treatment for this acute infection. 01/29/19 Alonso Shelton MD The right 4th finger is still very swollen, red, warm, blue, purplish, black at the tip of finger. The red streaks on forearm and wrist area are starting to recede. X-ray questions osteomyelitis. Will obtain bone scan or CT. Continue IV antibiotics. She also had a fall last night. Small subdural hematoma, nasal fracture, nasal laceration repaired. Neuro checks WNL. 01/30/19 ~11:30 am (late entry) Alonso Shelton MD She developed severe upper back pain (between the shoulder blades). Troponin 0, EKG noted, chest x-ray done, CT chest done. No PE or fractures. Morphine has helped the pain a little bit (pain score 9 to 7). Still grunting respirations but improving. Will give IV lasix for pleural effusion. She thinks she strained muscles in her back when she fell. Red streaks right forearm and right wrist continue to recede. Right 4th finger ischemic and the tip is necrotic. Not painful to her due to significant neuropathy. C&S pending. Continue IV antibiotics. Possible osteomyelitis. Surgery consult in AM. I discussed with her and daughter Celine Valladares that she may have to have finger amputated.
[2019-01-31] MEDS: cefTAZidime 1 GM Vial IVPUSH SCH ×2 (01:07→14:36)
[2019-01-31] MEDS: metroNIDAZOLE/Normal Saline 500 MG in Premix Bag 1 BAG IV SCH ×2 (01:07→09:06)
[2019-01-31] MEDS: Sodium Chloride 0.9% 10 ML Syringe FLUSH PRN (01:07)
[2019-01-31] MEDS: Sodium Chloride 0.9% 10 ML Syringe FLUSH SCH ×2 (09:08→21:39)
[2019-01-31] MEDS: Hydrochlorothiazide/Triamterene 50-75 MG Tab PO SCH (09:09)
[2019-01-31] MEDS: Propranolol 60 MG Cap.ER PO SCH ×2 (09:09→21:39)
[2019-01-31] MEDS: traMADol 50 MG Tab PO PRN (15:09)
--- NOTE | 2019-01-31 15:56 | PCM.PN ---
- General Info Date of Service: 01/31/19 Admission Dx/Problem (Free Text): Admission Diagnosis/Problem Admission Diagnosis/Problem Cellulitis and abscess of finger Functional Status: Reports: Pain Controlled - Review of Systems General: Reports: Weakness, Appetite (decreased) HEENT: Reports: No Symptoms Pulmonary: Reports: No Symptoms Cardiovascular: Reports: No Symptoms Gastrointestinal: Reports: No Symptoms Genitourinary: Reports: No Symptoms Musculoskeletal: Reports: Back Pain (improved today), Foot Pain (bilateral, chronic) Skin: Reports: Other (right 4th finger) Neurological: Reports: Weakness Psychiatric: Reports: No Symptoms - Patient Data Vitals - Most Recent: Last Vital Signs Temp 97.6 F 01/31/19 11:41 Pulse 69 01/31/19 11:41 Resp 14 01/31/19 11:41 BP 143/73 H 01/31/19 11:41 Pulse Ox 99 01/31/19 11:41 Weight - Most Recent: 115 lb 14.387 oz I&O - Last 24 Hours: Intake & Output 01/31/19 01/31/19 01/31/19 06:59 14:59 22:59 Intake Total 200 980 Output Total 400 Balance 200 580 Lab Results Last 24 Hours: Laboratory Results - last 24 hr 01/31/19 01/31/19 Range/Units 07:02 07:02 WBC 12.3 H (4.0-10.2) K/uL RBC 3.03 L (3.77-5.09) M/uL Hgb 9.6 L (11.7-15.5) g/dL Hct 28.0 L (34.0-46.0) % MCV 92.4 (84.0-98.0) fL MCH 31.7 (28.2-33.3) pg MCHC 34.3 (31.7-36.0) g/dL RDW 12.8 (11.2-14.1) % Plt Count 236 (150-350) K/uL Neut % (Auto) 77.7 (45.0-80.0) % Lymph % (Auto) 10.7 (10.0-50.0) % [place] % (Auto) 10.8 (2.0-14.0) % Eos % (Auto) 0.7 (0.0-5.0) % Baso % (Auto) 0.1 (0.0-2.0) % Neut # (Auto) 9.55 H (1.40-7.00) K/uL Lymph # (Auto) 1.32 (0.50-3.50) K/uL [place] # (Auto) 1.33 H (0.00-1.00) K/uL Eos # (Auto) 0.08 (0.00-0.50) K/uL Baso # (Auto) 0.01 (0.00-0.20) K/uL Sodium 134 L (136-145) mmol/L Potassium 3.5 (3.5-5.1) mmol/L Chloride 96 L (98-107) mmol/L Carbon Dioxide 21.1 (21.0-32.0) mmol/L BUN 31 H (7-18) mg/dL Creatinine 1.27 H (0.51-1.17) mg/dL Est Cr Clr Drug Dosing 25.35 mL/min Estimated GFR (MDRD) 40 mL/min Glucose 158 H (74-106) mg/dL Calcium 8.6 (8.5-10.1) mg/dL Total Bilirubin 0.5 (0.2-1.0) mg/dL AST 24 (15-37) U/L ALT 19 (12-78) U/L Alkaline Phosphatase 104 (46-116) IU/L C-Reactive Protein 34.6 H (<=0.9) mg/dL Total Protein 6.8 (6.4-8.2) g/dL Albumin 2.5 L (3.4-5.0) g/dL Panda Results Last 24 Hours: Microbiology 01/28/19 12:40 Aerobic Blood Culture - Preliminary Blood - Venous - Lab Draw NO GROWTH AFTER 3 DAYS Anaerobic Blood Culture - Preliminary NO GROWTH AFTER 3 DAYS 01/28/19 12:15 Aerobic Blood Culture - Preliminary Blood - Venous NO GROWTH AFTER 3 DAYS Anaerobic Blood Culture - Preliminary NO GROWTH AFTER 3 DAYS 01/29/19 17:00 Gram Stain - Final Finger, Right Wound Culture - Preliminary 01/28/19 11:00 Wound Culture - Final Finger, Right - Right Ring Staphylococcus Aureus Med Orders - Current: Current Medications Ceftriaxone Sodium (Rocephin) 1 gm IVPUSH Q12H PEG Hydroxyzine HCl (Vistaril) 25 mg IM Q4H PRN PRN Reason: Nausea/Vomiting Vancomycin HCl 1 gm/ Sodium (Chloride) 250 mls @ 165 mls/hr IV Q24H [facility] Last Admin: 01/31/19 14:37 Dose: 165 mls/hr Morphine Sulfate (Morphine) 2 mg IVPUSH Q2H PRN PRN Reason: Pain Last Admin: 01/30/19 10:32 Dose: 2 mg Ondansetron HCl (Zofran) 4 mg IVPUSH Q4H PRN PRN Reason: Nausea/Vomiting Propranolol HCl (Inderal La) 120 mg PO BID [facility] Last Admin: 01/31/19 09:09 Dose: 120 mg Sodium Chloride (Saline Flush) 10 ml FLUSH ASDIRECTED PRN PRN Reason: Keep Vein Open Last Admin: 01/31/19 01:07 Dose: 10 ml Sodium Chloride (Saline Flush) 10 ml FLUSH Q12HR [facility] Last Admin: 01/31/19 09:08 Dose: 10 ml Tramadol HCl (Ultram) 50 mg PO Q4H PRN PRN Reason: Pain (moderate 4-6) Last Admin: 01/31/19 15:09 Dose: 50 mg Triamterene/HCTZ (Maxzide 50-75 Mg) 1 each PO DAILY [facility] Last Admin: 01/31/19 09:09 Dose: 1 each Vancomycin HCl (Pharmacy To Dose - Vancomycin) 1 dose .XX ASDIRECTED [facility] Discontinued Medications Aspirin (Aspirin) 162.5 mg PO DAILY [facility] Ceftazidime (Fortaz) 1 gm IVPUSH Q12H [facility] Last Admin: 01/31/19 14:36 Dose: 1 gm Furosemide (Lasix) 20 mg IVPUSH NOW ONE Stop: 01/30/19 13:11 Last Admin: 01/30/19 14:16 Dose: 20 mg Gemfibrozil (Lopid) 600 mg PO BID [facility] Last Admin: 01/29/19 07:47 Dose: 600 [facility] Admin: 01/30/19 07:41 Dose: 600 mg Piperacillin Sod/Tazobactam (Sod 3.375 gm/ Sodium Chloride) 100 mls @ 200 mls/ hr IV Q6H [facility] Last Admin: 01/28/19 13:50 Dose: Not Given Sodium Chloride (Normal Saline) 1,000 mls @ 75 mls/hr IV ASDIRECTED [facility] Last Admin: 01/29/19 13:18 Dose: 75 mls/hr Metronidazole 500 mg/ Premix 100 mls @ 100 mls/hr IV Q8H [facility] Last Admin: 01/31/19 09:06 Dose: 100 mls/hr Vancomycin HCl 0.75 gm/ Sodium (Chloride) 250 mls @ 215 mls/hr IV Q24H [facility] Last Admin: 01/30/19 16:01 Dose: Not Given Iopamidol (Isovue-370 (76%)) 100 ml IVPUSH ONETIME ONE Stop: 01/30/19 10:35 Last Admin: 01/30/19 11:15 Dose: 100 ml Lidocaine HCl (Xylocaine-Mpf 1%) 5 ml INJECT ONETIME ONE Stop: 01/28/19 21:03 Last Admin: 01/28/19 21:04 Dose: 5 ml Metformin HCl (Glucophage) 500 mg PO BID [facility] Last Admin: 01/30/19 07:40 Dose: 500 mg Morphine Sulfate (Morphine) 2 mg IVPUSH ONETIME ONE Stop: 01/30/19 11:33 Last Admin: 01/30/19 11:44 Dose: 2 mg Neomycin/Polymyxin/Bacitracin (Triple Antibiotic Oint) 1 each TOP ONETIME ONE Stop: 01/28/19 21:47 Last Admin: 01/28/19 22:27 Dose: 1 each Ondansetron HCl (Zofran) 4 mg IVPUSH ONETIME ONE Stop: 01/30/19 11:39 Last Admin: 01/30/19 11:51 Dose: 4 mg - Exam Quality Assessment: Skin Breakdown (right 4th finger) General: Alert, Cooperative, Mild Distress HEENT: Mucous Membr. Moist/[place] Neck: Trachea Midline, No JVD Lungs: Normal Respiratory Effort, Decreased Breath Sounds Cardiovascular: Regular Rate, Regular Rhythm GI/Abdominal Exam: Soft, Non-Tender, No Distention (Female) Exam: Deferred Back Exam: Paraspinal Tenderness (thoracic) Extremities: Pallor (right 4th finger) Skin: Warm, Dry, Intact Wound/Incisions: Drainage (right 4th finger), Erythema Improving (right forearm and wrist red streaks continue to recede) Neurological: No New Focal Deficit Psy/Mental Status: Alert, Normal Affect, Normal Mood - Problem List & Annotations (1) Necrotizing erysipelas SNOMED Code(s): 59474553 Code(s): M72.6 - NECROTIZING FASCIITIS Status: Acute Priority: High Current Visit: Yes (2) Erysipelas SNOMED Code(s): 05085572 Code(s): A46 - ERYSIPELAS Status: Acute Current Visit: Yes (3) Cellulitis and abscess of hand SNOMED Code(s): 602758967, 671114930 Code(s): L03.119 - CELLULITIS OF UNSPECIFIED PART OF LIMB; L02.519 - CUTANEOUS ABSCESS OF UNSPECIFIED HAND Status: Acute Priority: High Current Visit: Yes Onset Date: ~01/26/19 Annotation/Comment:: R 4th finger, acute (4) Acute subdural hematoma SNOMED Code(s): 828619867, 591851362 Code(s): S06.5X9A - TRAUM SUBDR HEM W LOC OF UNSP DURATION, INIT Status: Acute Current Visit: No (5) Fall SNOMED Code(s): 0441586, 598934669 Code(s): W19.XXXA - UNSPECIFIED FALL, INITIAL ENCOUNTER Status: Acute Current Visit: No (6) Diabetes mellitus SNOMED Code(s): 75574882 Code(s): E11.9 - TYPE 2 DIABETES MELLITUS WITHOUT COMPLICATIONS Status: Chronic Priority: Medium Current Visit: Yes Qualifiers: Diabetes mellitus type: type 2 Diabetes mellitus complication status: with neurologic complications Diabetes mellitus complication detail: with polyneuropathy (7) HTN (hypertension) SNOMED Code(s): 02006581 Code(s): I10 - ESSENTIAL (PRIMARY) HYPERTENSION Status: Chronic Priority : Medium Current Visit: Yes Qualifiers: Hypertension type: essential hypertension Qualified Code(s): I10 - Essential (primary) hypertension (8) Hyperlipidemia SNOMED Code(s): 83921217 Code(s): E78.5 - HYPERLIPIDEMIA, UNSPECIFIED Status: Chronic Priority: Low Current Visit: Yes (9) Neuropathy SNOMED Code(s): 922845368 Code(s): G62.9 - POLYNEUROPATHY, UNSPECIFIED Status: Chronic Priority: Medium Current Visit: Yes (10) Nasal bones, closed fracture SNOMED Code(s): 48862380 Code(s): S02.2XXA - FRACTURE OF NASAL BONES, INIT ENCNTR FOR CLOSED FRACTURE Status: Acute Priority: High Current Visit: Yes Qualifiers: Encounter type: initial encounter Qualified Code(s): S02.2XXA - Fracture of nasal bones, initial encounter for closed fracture (11) Nasal laceration SNOMED Code(s): 425334224 Code(s): S01.21XA - LACERATION WITHOUT FOREIGN BODY OF NOSE, INITIAL ENCOUNTER Status: Acute Priority: High Current Visit: Yes Qualifiers: Encounter type: subsequent encounter Qualified Code(s): S01.21XD - Laceration without foreign body of nose, subsequent encounter (12) Strain of thoracic paraspinal muscles excluding T1 and T2 levels SNOMED Code(s): 54122562 Code(s): S29.012A - STRAIN OF MUSCLE AND TENDON OF BACK WALL OF THORAX, INIT Status: Acute Priority: High Current Visit: Yes Qualifiers: Encounter type: initial encounter Qualified Code(s): S29.012A - Strain of muscle and tendon of back wall of thorax, initial encounter (13) Elevated d-dimer SNOMED Code(s): 954420663 Code(s): R79.89 - OTHER SPECIFIED ABNORMAL FINDINGS OF BLOOD CHEMISTRY Status: Acute Priority: High Current Visit: Yes (14) Pleural effusion SNOMED Code(s): 46336582 Code(s): J90 - PLEURAL EFFUSION, NOT ELSEWHERE CLASSIFIED Status: Acute Priority: High Current Visit: Yes - Problem List Review Problem List Initiated/Reviewed/Updated: Yes - My Orders Last 24 Hours: My Active Orders 01/30/19 16:00 Ondansetron [Zofran] 4 mg IVPUSH Q4H PRN 01/31/19 08:00 Consult to Case Management/Retail Equipment Associate [CONS] Routine Consult to Occupational Therapy [OT Evaluation and Treatment] [CONS] Routine Consult to Physical Therapy [PT Evaluation and Treatment] [CONS] Routine Bone Scan 3 Phase [NM] Routine 02/01/19 02:00 cefTRIAXone [Rocephin] 1 gm IVPUSH Q12H - Plan Plan:: 01-28-19 Julio Brown PA-C 83 yr-old female admitted to status under the medical management of Dr. Gupta for acute R 4th finger cellullitis, concern for sepsis or osteomyelitis. White count is 18.7. CRP 32.1. Sed rate still pending. Dr. Gupta consulted at the time of admit. Starting IV Vanco and Fortaz. Sample of drainage from the tip of the finger obtained for C&S. This elderly patient with the complications of DM and neuropathy will need at least 96 hours of IP treatment for this acute infection. 01/29/19 Alonso Shelton MD The right 4th finger is still very swollen, red, warm, blue, purplish, black at the tip of finger. The red streaks on forearm and wrist area are starting to recede. X-ray questions osteomyelitis. Will obtain bone scan or CT. Continue IV antibiotics. She also had a fall last night. Small subdural hematoma, nasal fracture, nasal laceration repaired. Neuro checks WNL. 01/30/19 ~11:30 am (late entry) Alonso Shelton MD She developed severe upper back pain (between the shoulder blades). Troponin 0, EKG noted, chest x-ray done, CT chest done. No PE or fractures. Morphine has helped the pain a little bit (pain score 9 to 7). Still grunting respirations but improving. Will give IV lasix for pleural effusion. She thinks she strained muscles in her back when she fell. Red streaks right forearm and right wrist continue to recede. Right 4th finger ischemic and the tip is necrotic. Not painful to her due to significant neuropathy. C&S pending. Continue IV antibiotics. Possible osteomyelitis. Surgery consult in AM. I discussed with her and daughter Celine Valladares that she may have to have finger amputated. 01/31/19 Alonso Shelton MD Pain in back improved. Decrease in appetite. Dr. Nguyen wants ortho to see her regarding finger. Will consult Dr. Wiley. Bone scan today. C&S MSSA. Will adjust antibiotics. PT-OT evaluating. Labs continue to improve.
[2019-02-01] MEDS ORDERED: cefTRIAXone 1 GM Vial IVPUSH SCH (02:00)
[2019-02-01] MEDS: Sodium Chloride 0.9% 10 ML Syringe FLUSH PRN (02:38)
[2019-02-01] MEDS: Sodium Chloride 0.9% 10 ML Syringe FLUSH SCH (07:38)
[2019-02-01] MEDS: Hydrochlorothiazide/Triamterene 50-75 MG Tab PO SCH (07:38)
[2019-02-01] MEDS: Propranolol 60 MG Cap.ER PO SCH (07:38)
--- NOTE | 2019-02-01 10:59 | PCM.PN ---
- General Info Date of Service: 02/01/19 Admission Dx/Problem (Free Text): Admission Diagnosis/Problem Admission Diagnosis/Problem Cellulitis and abscess of finger Functional Status: Reports: Ambulating (only with assist and wheeled walker) - Review of Systems General: Reports: Weakness, Fatigue HEENT: Reports: Glasses Pulmonary: Reports: Shortness of Breath Cardiovascular: Reports: No Symptoms Gastrointestinal: Reports: No Symptoms Genitourinary: Reports: No Symptoms Musculoskeletal: Reports: No Symptoms Skin: Reports: Bruising, Other (R 4th finger skin peeling off) Neurological: Reports: No Symptoms Psychiatric: Reports: No Symptoms - Patient Data Vitals - Most Recent: Last Vital Signs Temp 98.0 F 02/01/19 07:50 Pulse 65 02/01/19 07:50 Resp 16 02/01/19 07:50 BP 123/65 02/01/19 07:50 Pulse Ox 95 02/01/19 07:50 Weight - Most Recent: 115 lb 14.387 oz I&O - Last 24 Hours: Intake & Output 01/31/19 02/01/19 02/01/19 22:59 06:59 14:59 Intake Total 270 50 720 Output Total 350 400 Balance -80 50 320 Lab Results Last 24 Hours: Laboratory Results - last 24 hr 02/01/19 02/01/19 Range/Units 07:18 07:18 WBC 13.9 H (4.0-10.2) K/uL RBC 2.95 L (3.77-5.09) M/uL Hgb 9.3 L (11.7-15.5) g/dL Hct 27.1 L (34.0-46.0) % MCV 91.9 (84.0-98.0) fL MCH 31.5 (28.2-33.3) pg MCHC 34.3 (31.7-36.0) g/dL RDW 12.6 (11.2-14.1) % Plt Count 279 (150-350) K/uL Neut % (Auto) 76.9 (45.0-80.0) % Lymph % (Auto) 10.7 (10.0-50.0) % [place] % (Auto) 10.5 (2.0-14.0) % Eos % (Auto) 1.7 (0.0-5.0) % Baso % (Auto) 0.2 (0.0-2.0) % Neut # (Auto) 10.67 H (1.40-7.00) K/uL Lymph # (Auto) 1.49 (0.50-3.50) K/uL [place] # (Auto) 1.46 H (0.00-1.00) K/uL Eos # (Auto) 0.24 (0.00-0.50) K/uL Baso # (Auto) 0.03 (0.00-0.20) K/uL Sodium 129 L (136-145) mmol/L Potassium 3.5 (3.5-5.1) mmol/L Chloride 95 L (98-107) mmol/L Carbon Dioxide 20.5 L (21.0-32.0) mmol/L BUN 46 H (7-18) mg/dL Creatinine 2.11 H (0.51-1.17) mg/dL Est Cr Clr Drug Dosing 15.26 mL/min Estimated GFR (MDRD) 22 mL/min Glucose 177 H (74-106) mg/dL Calcium 8.8 (8.5-10.1) mg/dL Total Bilirubin 0.5 (0.2-1.0) mg/dL AST 19 (15-37) U/L ALT 16 (12-78) U/L Alkaline Phosphatase 97 (46-116) IU/L C-Reactive Protein 19.1 H (<=0.9) mg/dL Total Protein 6.4 (6.4-8.2) g/dL Albumin 2.3 L (3.4-5.0) g/dL Panda Results Last 24 Hours: Microbiology 01/29/19 17:00 Gram Stain - Final Finger, Right Wound Culture - Final Staphylococcus Aureus 01/28/19 12:40 Aerobic Blood Culture - Preliminary Blood - Venous - Lab Draw NO GROWTH AFTER 3 DAYS Anaerobic Blood Culture - Preliminary NO GROWTH AFTER 3 DAYS 01/28/19 12:15 Aerobic Blood Culture - Preliminary Blood - Venous NO GROWTH AFTER 3 DAYS Anaerobic Blood Culture - Preliminary NO GROWTH AFTER 3 DAYS Med Orders - Current: Current Medications Ceftriaxone Sodium (Rocephin) 1 gm IVPUSH Q12H PEG Last Admin: 02/01/19 02:38 Dose: 1 gm Hydroxyzine HCl (Vistaril) 25 mg IM Q4H PRN PRN Reason: Nausea/Vomiting Vancomycin HCl 1 gm/ Sodium (Chloride) 250 mls @ 165 mls/hr IV Q24H [facility] Last Admin: 01/31/19 14:37 Dose: 165 mls/hr Morphine Sulfate (Morphine) 2 mg IVPUSH Q2H PRN PRN Reason: Pain Last Admin: 01/30/19 10:32 Dose: 2 mg Ondansetron HCl (Zofran) 4 mg IVPUSH Q4H PRN PRN Reason: Nausea/Vomiting Propranolol HCl (Inderal La) 120 mg PO BID [facility] Last Admin: 02/01/19 07:38 Dose: 120 mg Sodium Chloride (Saline Flush) 10 ml FLUSH ASDIRECTED PRN PRN Reason: Keep Vein Open Last Admin: 02/01/19 02:38 Dose: 10 ml Sodium Chloride (Saline Flush) 10 ml FLUSH Q12HR [facility] Last Admin: 02/01/19 07:38 Dose: 10 ml Tramadol HCl (Ultram) 50 mg PO Q4H PRN PRN Reason: Pain (moderate 4-6) Last Admin: 01/31/19 15:09 Dose: 50 mg Triamterene/HCTZ (Maxzide 50-75 Mg) 1 each PO DAILY [facility] Last Admin: 02/01/19 07:38 Dose: 1 each Vancomycin HCl (Pharmacy To Dose - Vancomycin) 1 dose .XX ASDIRECTED [facility] Discontinued Medications Aspirin (Aspirin) 162.5 mg PO DAILY [facility] Ceftazidime (Fortaz) 1 gm IVPUSH Q12H [facility] Last Admin: 01/31/19 14:36 Dose: 1 gm Furosemide (Lasix) 20 mg IVPUSH NOW ONE Stop: 01/30/19 13:11 Last Admin: 01/30/19 14:16 Dose: 20 mg Gemfibrozil (Lopid) 600 mg PO BID [facility] Last Admin: 01/29/19 07:47 Dose: 600 mg Gemfibrozil (Lopid) 600 mg PO BIDAC [facility] Last Admin: 01/30/19 07:41 Dose: 600 mg Piperacillin Sod/Tazobactam (Sod 3.375 gm/ Sodium Chloride) 100 mls @ 200 mls/ hr IV Q6H [facility] Last Admin: 01/28/19 13:50 Dose: Not Given Sodium Chloride (Normal Saline) 1,000 mls @ 75 mls/hr IV ASDIRECTED [facility] Last Admin: 01/29/19 13:18 Dose: 75 mls/hr Metronidazole 500 mg/ Premix 100 mls @ 100 mls/hr IV Q8H [facility] Last Admin: 01/31/19 09:06 Dose: 100 mls/hr Vancomycin HCl 0.75 gm/ Sodium (Chloride) 250 mls @ 215 mls/hr IV Q24H [facility] Last Admin: 01/30/19 16:01 Dose: Not Given Iopamidol (Isovue-370 (76%)) 100 ml IVPUSH ONETIME ONE Stop: 01/30/19 10:35 Last Admin: 01/30/19 11:15 Dose: 100 ml Lidocaine HCl (Xylocaine-Mpf 1%) 5 ml INJECT ONETIME ONE Stop: 01/28/19 21:03 Last Admin: 01/28/19 21:04 Dose: 5 ml Metformin HCl (Glucophage) 500 mg PO BID [facility] Last Admin: 01/30/19 07:40 Dose: 500 mg Morphine Sulfate (Morphine) 2 mg IVPUSH ONETIME ONE Stop: 01/30/19 11:33 Last Admin: 01/30/19 11:44 Dose: 2 mg Neomycin/Polymyxin/Bacitracin (Triple Antibiotic Oint) 1 each TOP ONETIME ONE Stop: 01/28/19 21:47 Last Admin: 01/28/19 22:27 Dose: 1 each Ondansetron HCl (Zofran) 4 mg IVPUSH ONETIME ONE Stop: 01/30/19 11:39 Last Admin: 01/30/19 11:51 Dose: 4 mg - Exam Quality Assessment: Skin Breakdown (R 4th finger degloving now) General: Alert, Oriented HEENT: Pupils Reactive, Other (periorbital edema and scab on nose secondary to fall) Neck: Supple, Trachea Midline Lungs: Clear to Auscultation, Normal Respiratory Effort Cardiovascular: Regular Rate, Murmurs GI/Abdominal Exam: Normal Bowel Sounds, Soft, Non-Tender (Female) Exam: Deferred Back Exam: Normal Inspection Extremities: No Pedal Edema, Redness (R 4h finger and hand) Wound/Incisions: Drainage, Erythema, Other ( R 4th finger now degloving) Neurological: No New Focal Deficit Psy/Mental Status: Alert, Normal Affect, Normal Mood - Problem List & Annotations (1) Cellulitis and abscess of hand SNOMED Code(s): 603150642, 097302144 Code(s): L03.119 - CELLULITIS OF UNSPECIFIED PART OF LIMB; L02.519 - CUTANEOUS ABSCESS OF UNSPECIFIED HAND Status: Acute Priority: High Current Visit: Yes Onset Date: ~01/26/19 Annotation/Comment:: R 4th finger, acute (2) Diabetes mellitus SNOMED Code(s): 75539058 Code(s): E11.9 - TYPE 2 DIABETES MELLITUS WITHOUT COMPLICATIONS Status: Chronic Priority: Medium Current Visit: Yes Qualifiers: Diabetes mellitus type: type 2 Diabetes mellitus complication status: with neurologic complications Diabetes mellitus complication detail: with polyneuropathy (3) HTN (hypertension) SNOMED Code(s): 64901058 Code(s): I10 - ESSENTIAL (PRIMARY) HYPERTENSION Status: Chronic Priority : Medium Current Visit: Yes Qualifiers: Hypertension type: essential hypertension Qualified Code(s): I10 - Essential (primary) hypertension (4) Hyperlipidemia SNOMED Code(s): 48963511 Code(s): E78.5 - HYPERLIPIDEMIA, UNSPECIFIED Status: Chronic Priority: Low Current Visit: Yes (5) Neuropathy SNOMED Code(s): 586048747 Code(s): G62.9 - POLYNEUROPATHY, UNSPECIFIED Status: Chronic Priority: Medium Current Visit: Yes - Problem List Review Problem List Initiated/Reviewed/Updated: Yes - My Orders Last 24 Hours: My Active Orders 02/01/19 13:30 VANCOMYCIN TROUGH [CHEM] Routine 02/05/19 07:00 Echo Comp wo Cont [US] Timed - Plan Plan:: 01-28-19 Julio Brown PA-C 83 yr-old female admitted to IP status under the medical management of Dr. Gupta for acute R 4th finger cellullitis, concern for sepsis or osteomyelitis. White count is 18.7. CRP 32.1. Sed rate still pending. Dr. Gupta consulted at the time of admit. Starting IV Vanco and Fortaz. Sample of drainage from the tip of the finger obtained for C&S. This elderly patient with the complications of DM and neuropathy will need at least 96 hours of IP treatment for this acute infection. 01/29/19 Alonso Shelton MD The right 4th finger is still very swollen, red, warm, blue, purplish, black at the tip of finger. The red streaks on forearm and wrist area are starting to recede. X-ray questions osteomyelitis. Will obtain bone scan or CT. Continue IV antibiotics. She also had a fall last night. Small subdural hematoma, nasal fracture, nasal laceration repaired. Neuro checks WNL. 01/30/19 ~11:30 am (late entry) Alonso Shelton MD She developed severe upper back pain (between the shoulder blades). Troponin 0, EKG noted, chest x-ray done, CT chest done. No PE or fractures. Morphine has helped the pain a little bit (pain score 9 to 7). Still grunting respirations but improving. Will give IV lasix for pleural effusion. She thinks she strained muscles in her back when she fell. Red streaks right forearm and right wrist continue to recede. Right 4th finger ischemic and the tip is necrotic. Not painful to her due to significant neuropathy. C&S pending. Continue IV antibiotics. Possible osteomyelitis. Surgery consult in AM. I discussed with her and daughter Celine Valladares that she may have to have finger amputated. 01/31/19 Alonso Shelton MD Pain in back improved. Decrease in appetite. Dr. Nguyen wants ortho to see her regarding finger. Will consult Dr. Wiley. Bone scan today. C&S MSSA. Will adjust antibiotics. PT-OT evaluating. Labs continue to improve. 02-01-19 Julio Brown PA-C Afebrile, labs are improved but WBC still >13. The R 4th finger is now beginning to deglove, with the skin coming away from a proximal aspect . There is purulent drainage on the dressing and persisting erythema to the dorsum of the hand as well. X-rays and bone scan have both indicated concern for Osteomyelitis. Culture taken in the clinic on first exam grew out MSSA. Discussed transfer to a tertiary hospital with patient and daughter Celine Valladares, and they would like to go to [facility]. [facility] contacted, and Dr. Ku consulted however they do not a hand surgeon available until Monday, so [place] [facility] contacted - Dr. Hollins, Hospitalist accepts for admit. She will be transferred via [facility].
[2019-02-01 12:13] VITALS: BP 151/76; PULSE 73
--- NOTE | 2019-02-05 12:07 | PCM.DCSUM1 ---
Discharge Summary - Hospital Course Free Text/Narrative:: Initially admitted to [facility] with acute R 4th finger cellulitis and concern for osteomyelitis after a two day history of rapidly worsening symptoms Brief History: Was admitted and started on IV Fortaz and Vancomycin. A sample of drainage from the distal fingertip had been collected in the clinic. Diagnosis: Stroke: No - Discharge Data Discharge Date: 02/01/19 Discharge Disposition: DC/Tfer to Acute Hospital 02 Condition: Good - Discharge Diagnosis/Problem(s) (1) Cellulitis and abscess of hand SNOMED Code(s): 818600085, 161364509 ICD Code: L03.119 - CELLULITIS OF UNSPECIFIED PART OF LIMB; L02.519 - CUTANEOUS ABSCESS OF UNSPECIFIED HAND Status: Acute Priority: High Onset Date: ~01/26/19 Problem Details: R 4th finger, acute (2) Diabetes mellitus SNOMED Code(s): 70204086 ICD Code: E11.9 - TYPE 2 DIABETES MELLITUS WITHOUT COMPLICATIONS Status: Chronic Priority: Medium Qualifiers: Diabetes mellitus type: type 2 Diabetes mellitus complication status: with neurologic complications Diabetes mellitus complication detail: with polyneuropathy (3) HTN (hypertension) SNOMED Code(s): 54699589 ICD Code: I10 - ESSENTIAL (PRIMARY) HYPERTENSION Status: Chronic Priority : Medium Qualifiers: Hypertension type: essential hypertension Qualified Code(s): I10 - Essential (primary) hypertension (4) Hyperlipidemia SNOMED Code(s): 76247636 ICD Code: E78.5 - HYPERLIPIDEMIA, UNSPECIFIED Status: Chronic Priority: Low (5) Neuropathy SNOMED Code(s): 353765497 ICD Code: G62.9 - POLYNEUROPATHY, UNSPECIFIED Status: Chronic Priority: Medium - Patient Summary/Data Operative Procedure(s) Performed: Was seen for consultation by general surgeon for concern for possible amputation who felt that she needed to be evaluated by Ortho. Consults: Consultations 01/30/19 08:00 Consult to Physician [CONS] Urgent 01/31/19 08:00 Consult to Case Management/Category Development Analyst [CONS] Routine Consult to Occupational Therapy [OT Evaluation and Treatment] [CONS] Routine Consult to Physical Therapy [PT Evaluation and Treatment] [CONS] Routine Hospital Course: WBC did improve but slowly. The R 4th finger did clinically improve but also slowly, then on the morning of discharge did start to slough the skin from the proximal aspect. Decision was made to transfer to a higher level of care. - Discharge Plan *PRESCRIPTION DRUG MONITORING PROGRAM REVIEWED*: Not Applicable *COPY OF PRESCRIPTION DRUG MONITORING REPORT IN PATIENT JUAN MIGUEL: Not Applicable ( Transfer via [facility] to [facility].) Home Medications: Home Meds Cholecalciferol (Vitamin D3) [Vitamin D3] 1,000 unit PO DAILY 12/30/14 [History] Gemfibrozil 600 mg PO BID 12/30/14 [History] Multivitamin [Daily Multiple Vitamin] 1 tab PO DAILY 12/30/14 [History] Propranolol [Propranolol CR 24 Hr] 120 mg PO BID 12/30/14 [History] Triamterene/Hydrochlorothiazid [Triamterene-HCTZ 75-50 MG] 1 each PO DAILY 12/30 [History] metFORMIN [Glucophage] 1 tab PO BID 12/30/14 [History] traMADol [Ultram] 50 mg PO Q4H PRN 12/30/14 [History] Aspirin 0.5 tab PO DAILY 01/28/19 [History] Patient Handouts: Cellulitis, Adult, Ceftazidime injection, Vancomycin injection, Metronidazole injection - Discharge Summary/Plan Comment DC Time >30 min.: Yes Discharge Summary/Plan Comment: Patient was transferred to [facility] per [facility]. - Patient Data Vitals - Most Recent: Last Vital Signs Temp 97.9 F 02/01/19 12:00 Pulse 73 02/01/19 12:00 Resp 16 02/01/19 12:00 BP 151/76 H 02/01/19 12:00 Pulse Ox 97 02/01/19 12:00 Weight - Most Recent: 115 lb 14.387 oz Med Orders - Current: Current Medications Discontinued Medications Aspirin (Aspirin) 162.5 mg PO DAILY [facility] Ceftazidime (Fortaz) 1 gm IVPUSH Q12H [facility] Last Admin: 01/31/19 14:36 Dose: 1 gm Ceftriaxone Sodium (Rocephin) 1 gm IVPUSH Q12H [facility] Last Admin: 02/01/19 02:38 Dose: 1 gm Furosemide (Lasix) 20 mg IVPUSH NOW ONE Stop: 01/30/19 13:11 Last Admin: 01/30/19 14:16 Dose: 20 mg Gemfibrozil (Lopid) 600 mg PO BID [facility] Last Admin: 01/29/19 07:47 Dose: 600 mg Gemfibrozil (Lopid) 600 mg PO BIDAC [facility] Last Admin: 01/30/19 07:41 Dose: 600 mg Hydroxyzine HCl (Vistaril) 25 mg IM Q4H PRN PRN Reason: Nausea/Vomiting Piperacillin Sod/Tazobactam (Sod 3.375 gm/ Sodium Chloride) 100 mls @ 200 mls/ hr IV Q6H [facility] Last Admin: 01/28/19 13:50 Dose: Not Given Sodium Chloride (Normal Saline) 1,000 mls @ 75 mls/hr IV ASDIRECTED [facility] Last Admin: 01/29/19 13:18 Dose: 75 mls/hr Metronidazole 500 mg/ Premix 100 mls @ 100 mls/hr IV Q8H [facility] Last Admin: 01/31/19 09:06 Dose: 100 mls/hr Vancomycin HCl 0.75 gm/ Sodium (Chloride) 250 mls @ 215 mls/hr IV Q24H [facility] Last Admin: 01/30/19 16:01 Dose: Not Given Vancomycin HCl 1 gm/ Sodium (Chloride) 250 mls @ 165 mls/hr IV Q24H [facility] Last Admin: 01/31/19 14:37 Dose: 165 mls/hr Iopamidol (Isovue-370 (76%)) 100 ml IVPUSH ONETIME ONE Stop: 01/30/19 10:35 Last Admin: 01/30/19 11:15 Dose: 100 ml Lidocaine HCl (Xylocaine-Mpf 1%) 5 ml INJECT ONETIME ONE Stop: 01/28/19 21:03 Last Admin: 01/28/19 21:04 Dose: 5 ml Metformin HCl (Glucophage) 500 mg PO BID [facility] Last Admin: 01/30/19 07:40 Dose: 500 mg Morphine Sulfate (Morphine) 2 mg IVPUSH Q2H PRN PRN Reason: Pain Last Admin: 01/30/19 10:32 Dose: 2 mg Morphine Sulfate (Morphine) 2 mg IVPUSH ONETIME ONE Stop: 01/30/19 11:33 Last Admin: 01/30/19 11:44 Dose: 2 mg Neomycin/Polymyxin/Bacitracin (Triple Antibiotic Oint) 1 each TOP ONETIME ONE Stop: 01/28/19 21:47 Last Admin: 01/28/19 22:27 Dose: 1 each Ondansetron HCl (Zofran) 4 mg IVPUSH ONETIME ONE Stop: 01/30/19 11:39 Last Admin: 01/30/19 11:51 Dose: 4 mg Ondansetron HCl (Zofran) 4 mg IVPUSH Q4H PRN PRN Reason: Nausea/Vomiting Propranolol HCl (Inderal La) 120 mg PO BID [facility] Last Admin: 02/01/19 07:38 Dose: 120 mg Sodium Chloride (Saline Flush) 10 ml FLUSH ASDIRECTED PRN PRN Reason: Keep Vein Open Last Admin: 02/01/19 02:38 Dose: 10 ml Sodium Chloride (Saline Flush) 10 ml FLUSH Q12HR [facility] Last Admin: 02/01/19 07:38 Dose: 10 ml Tramadol HCl (Ultram) 50 mg PO Q4H PRN PRN Reason: Pain (moderate 4-6) Last Admin: 01/31/19 15:09 Dose: 50 mg Triamterene/HCTZ (Maxzide 50-75 Mg) 1 each PO DAILY [facility] Last Admin: 02/01/19 07:38 Dose: 1 each Vancomycin HCl (Pharmacy To Dose - Vancomycin) 1 dose .XX ASDIRECTED [facility]
== END 2019-02-01 12:35 | DRG 602 ==
LOC: UNDOADMIN 11:33 → LL.MS 11:33
PROVIDERS: ADMIT Physician Assistant; ATTEND Family Medicine
PROC: 09QKXZZ Repair Nasal Mucosa and Soft Tissue, External Approach (ICD-10-PCS; principal; 2019-01-28)
DX: L03.011 Cellulitis of right finger (principal); S06.5X9A Traumatic subdural hemorrhage with loss of consciousness of unspecified duration, initial encounter; M72.6 Necrotizing fasciitis; L02.511 Cutaneous abscess of right hand; J90 Pleural effusion, not elsewhere classified; M86.9 Osteomyelitis, unspecified; H54.7 Unspecified visual loss; E11.69 Type 2 diabetes mellitus with other specified complication; E78.00 Pure hypercholesterolemia, unspecified; I10 Essential (primary) hypertension; E11.42 Type 2 diabetes mellitus with diabetic polyneuropathy; M10.9 Gout, unspecified; S02.2XXA Fracture of nasal bones, initial encounter for closed fracture; A46 Erysipelas; W19.XXXA Unspecified fall, initial encounter; S29.012A Strain of muscle and tendon of back wall of thorax, initial encounter; R79.89 Other specified abnormal findings of blood chemistry; S01.21XA Laceration without foreign body of nose, initial encounter; Z79.84 Long term (current) use of oral hypoglycemic drugs; Z90.49 Acquired absence of other specified parts of digestive tract; Z79.899 Other long term (current) drug therapy; Z79.82 Long term (current) use of aspirin
CPT/HCPCS: 36415; 70450; 70486; 71046; 71275; 72040; 72070; 73140-F8; 78315; 80053; 80202; 82550; 82553; 82803; 83605; 84484; 85025; 85379; 85610; 85730; 86140; 87040; 87070; 87077; 87186; 87205; 93005; 97162-GP; 97530-GP; A4217; A9270-GY; J0696; J0713; J1940; J2001; J2270; J2405; J3370; J3490; J7030; J7050; Q9967

== ENCOUNTER 2019-02-05 11:38 | Inpatient (IN) | payer MEDICARE, BC ==
--- NOTE | 2019-02-05 17:11 | PCM.HP ---
H&P History of Present Illness - General Date of Service: 02/05/19 Admit Problem/Dx: Admission Diagnosis/Problem Admission Diagnosis/Problem Cellulitis and abscess of finger Source of Information: Patient, Old Records History Limitations: Reports: No Limitations - History of Present Illness Initial Comments - Free Text/Narative: Admitted to [facility] after acute stays here at [facility] and then [facility] for acute cellulitis with possible osteomyelitis of the R 4th finger. I&D was done up at [place] by Dr. Endy Servin 02-02-19. Onset of Symptoms: Reports: Gradual Location: Reports: Upper Extremity, Right Improves with: Reports: Other (denies pain to this finger ) - Related Data Allergies/Adverse Reactions: Allergies Allergy/AdvReac Type Severity Reaction Status Date / Time No Known Allergies Allergy Verified 01/28/19 12:45 Home Medications: Home Meds Cholecalciferol (Vitamin D3) [Vitamin D3] 1,000 unit PO DAILY 12/30/14 [History] Gemfibrozil 600 mg PO DAILY 12/30/14 [History] Multivitamin [Daily Multiple Vitamin] 1 tab PO DAILY 12/30/14 [History] Propranolol [Propranolol CR 24 Hr] 120 mg PO BID 12/30/14 [History] metFORMIN [Glucophage] 1 tab PO BID 12/30/14 [History] traMADol [Ultram] 50 mg PO Q4H PRN 12/30/14 [History] Heparin Sodium,Porcine/PF [Heparin 500 Unit/5 ml (100/ml)] 300 units IV ASDIRECTED PRN 02/05/19 [History] Heparin Sodium,Porcine/PF [Heparin 500 Unit/5 ml (100/ml)] 300 units IV Q12HR [History] Ibuprofen [Motrin] 600 mg PO Q6H PRN 02/05/19 [History] Insulin Aspart [NovoLOG] 0 unit SQ WITHMEALSANDBED 02/05/19 [History] Sodium Chloride 0.9% [Saline Flush] 10 ml FLUSH ASDIRECTED PRN 02/05/19 [History ] Sodium Chloride 0.9% [Saline Flush] 10 ml IV Q12HR 02/05/19 [History] amLODIPine [Norvasc] 2 tab PO DAILY 02/05/19 [History] ceFAZolin [Ancef] 1 gm IV Q12HR 02/05/19 [History] Past Medical History HEENT History: Reports: Impaired Vision Other HEENT History: wears glasses Cardiovascular History: Reports: Heart Murmur, High Cholesterol, Hypertension Respiratory History: Reports: None Gastrointestinal History: Reports: Hepatitis Other Gastrointestinal History: h/o hepatitis Genitourinary History: Reports: None Musculoskeletal History: Reports: Gout Neurological History: Reports: Neuropathy, Peripheral Endocrine/Metabolic History: Reports: Diabetes, Type II Dermatologic History: Reports: Cellulitis - Infectious Disease History Infectious Disease History: Reports: Mumps, Other (See Below) Other Infectious Disease History: Hepatitis hx unsure of what type - Past Surgical History GI Surgical History: Reports: Appendectomy Female Surgical History: Reports: Breast Biopsy Oncologic Surgical History: Reports: Biopsy of Breast Dermatological Surgical History: Reports: None Social & Family History - Family History Family Medical History: Noncontributory - Tobacco Use Smoking Status *Q: Never Smoker Second Hand Smoke Exposure: No - Caffeine Use Caffeine Use: Reports: Tea - Recreational Drug Use Recreational Drug Use: No Drug Use in Last 12 Months: No H&P Review of Systems - Review of Systems: Review Of Systems: See Below General: Reports: Other (feels much better than on transfer to [place] ) Pulmonary: Reports: No Symptoms Cardiovascular: Reports: No Symptoms Gastrointestinal: Reports: Decreased Appetite (thinks from all the medications) Genitourinary: Reports: No Symptoms Musculoskeletal: Reports: No Symptoms Skin: Reports: Wound (R 4th finger) Psychiatric: Reports: No Symptoms Exam - Exam Exam: See Below - Vital Signs Weight: 116 lb - Exam Quality Assessment: Central Line/PICC General: Alert, Oriented, 4 HEENT: EOMI, Posterior Pharynx Clear, Other (L nasal abrasion appears healing well, facial bruising healing ) Neck: Supple, Trachea Midline, 2 Lungs: Clear to Auscultation, Normal Respiratory Effort Cardiovascular: Regular Rate, Regular Rhythm, Systolic Murmur GI/Abdominal Exam: Normal Bowel Sounds, Soft, Non-Tender (Female) Exam: Deferred Rectal (Female) Exam: Deferred Back Exam: Normal Inspection Extremities: No Pedal Edema Skin: Warm, Dry, Wound (R 4th finger dressed) Neuro Extensive - Mental Status: Alert, Oriented x3, Normal Mood/Affect, Normal Cognition, Memory Intact Psychiatric: Alert, Normal Affect, Normal Mood Problem List Initiated/Reviewed/Updated: Yes Orders Last 24hrs: Active Orders 24 hr Category Date Time Status Patient Status [ADT] Routine ADT 02/05/19 16:48 Ordered Ambulate [RC] ASDIRECTED Care 02/05/19 16:48 Ordered Ambulate [RC] PER UNIT ROUTINE Care 02/05/19 16:48 Ordered Antiembolic Devices [RC] PER UNIT ROUTINE Care 02/05/19 17:00 Ordered Blood Glucose Check, Bedside [RC] BIDMEALS Care 02/05/19 16:48 Ordered Height and Weight [RC] PER UNIT ROUTINE Care 02/05/19 16:56 Ordered Intake and Output [RC] QSHIFT Care 02/05/19 16:56 Ordered May Shower [RC] ASDIRECTED Care 02/05/19 16:48 Ordered Oxygen Therapy [RC] PRN Care 02/05/19 16:48 Ordered Up With Assistance [RC] ASDIRECTED Care 02/05/19 16:48 Ordered Up to Chair [RC] ASDIRECTED Care 02/05/19 16:48 Ordered VTE/DVT Education [RC] PER UNIT ROUTINE Care 02/05/19 16:48 Ordered Vital Signs [RC] PER UNIT ROUTINE Care 02/05/19 16:48 Ordered Consult to Case Management/Transformer Mechanic [CONS] Cons 02/05/19 16:48 Ordered Routine OT Evaluation and Treatment [CONS] Routine Cons 02/05/19 16:48 Ordered PT Evaluation and Treatment [CONS] Routine Cons 02/05/19 16:48 Ordered [employer] Diet [DIET] Diet 02/05/19 Dinner Ordered Resuscitation Status Routine Resus Stat 02/05/19 16:48 Ordered Assessment/Plan Comment:: 02-05-19 Julio Brown PA-C Patient admitted to [facility] status to continue antibiotic therapy per PICC line and to work with PT-OT with the goal of returning to her own home. She does have a PICC line in place. Follow up appointments have been scheduled back at [place] prior to her discharge from that facility. Weekly labs will be done and faxed to ID.
[2019-02-05] MEDS ORDERED: Ibuprofen 600 MG Tab PO PRN (17:37)
[2019-02-05] MEDS: Propranolol 60 MG Cap.ER PO SCH (18:34)
[2019-02-05] MEDS: Insulin Lispro 100 Units/ML 3 ML Vial SUBCUT SCH ×2 (18:35→19:59)
[2019-02-05] MEDS: metFORMIN 500 MG Tab PO SCH (18:36)
[2019-02-05] MEDS: ceFAZolin 1 GM in Sodium Chloride 0.9% 100 ML IV SCH (19:37)
[2019-02-05] MEDS: Sodium Chloride 0.9% 10 ML Syringe IV SCH (19:45)
[2019-02-05] MEDS ORDERED: CEFAZOLIN 1 GM IV SCH (20:00)
[2019-02-06] MEDS: amLODIPine 5 MG Tab PO SCH (08:34)
[2019-02-06] MEDS: ceFAZolin 1 GM in Sodium Chloride 0.9% 100 ML IV SCH (08:35)
[2019-02-06] MEDS: Gemfibrozil 600 MG Tab PO SCH (08:35)
[2019-02-06] MEDS: Propranolol 60 MG Cap.ER PO SCH ×2 (08:35→17:47)
[2019-02-06] MEDS: Multivitamin Tab PO SCH (08:35)
[2019-02-06] MEDS: Cholecalciferol (Vitamin D3) 25 MCG Tab PO SCH (08:35)
[2019-02-06] MEDS: Sodium Chloride 0.9% 10 ML Syringe IV SCH ×2 (08:38→19:46)
[2019-02-06] MEDS: Insulin Lispro 100 Units/ML 3 ML Vial SUBCUT SCH ×4 (08:39→21:23)
[2019-02-06] MEDS: Sodium Chloride 0.9% 10 ML Syringe FLUSH PRN (09:08)
--- OUTSIDE RECORDS SUMMARY | 2019-02-06 09:33 | XMSREPORT ---
:1935 Author Organization [facility] Address [address] [place] [address] Care Team Providers Name Role Phone Sheets-Ivelisse Shelton MD Primary Care Provider Provider, No Attributed RESOURCE Attributed Provider Unavailable Reason for Visit Reason Comments Auth/Cert Status Reason Specialty Diagnoses / Procedures Referred By Contact Referred To Contact Encounter Details Date Type Department Care Team Description 02/01/2019 - [facility] Provider, Generic Hosp Procedure Osteomyelitis (HCC) 02/05/2019 Encounter CENTER 8[facility] MED Marc Ta MD [address], [place] [id number] SURG Maida Vazquez MD [address], [place] [id number] [place], [place] [id number] Allergies No Known Allergiesdocumented as of this encounter (statuses as of 02/05/2019) Medications Medication Sig Dispensed Refills Start End Date Status Date Multiple Take 1 tablet by 0 Active Vitamins-Minerals mouth 1 time per (MULTIVITAMIN PO) day. blood glucose test 6 Active strip (ACCU-CHEK 5 DALE PLUS) amLODIPine Take 1 tablet (10 90 tablet 4 02/10/20 Active (NORVASC) 10 mg mg) by mouth 1 9 20 tabletIndications: time per day Essential hypertension sodium chloride Administer 10 mL intravenously As often as necessary for other (Specify) (Flush infusion line before each antibiotic infusion and after each infusion completed) Flush infusion line before each antibiotic infusion and after each infusion completed. 0 Active 0.9% prefilled 10 Flush line with heparin 300 units/ 3 mL after the last saline flush 9 mL syringe 0.9% SOLNIndications: Finger infection hEParin 100 Administer 3 mL 0 Active units/mL injection (300 Units) 9 solutionIndication intravenously As s: Finger often as necessary infection for other (Specify) (heparin 300 units/3 mL IV FLUSH after completion of each antibiotic infusion (after saline flush)) heparin 300 units/3 mL IV FLUSH after completion of each antibiotic infusion (after saline flush) sodium chloride Administer 10 mL intravenously As often as necessary for other (Specify) (Flush infusion line before each antibiotic infusion and after each infusion completed) Flush infusion line before each antibiotic infusion and after each infusion completed. 0 Active 0.9% prefilled 10 Flush line with heparin 300 units/ 3 mL after the last saline flush 9 mL syringe 0.9% SOLNIndications: Subacute osteomyelitis of right hand (HCC) hEParin 100 Administer 3 mL 0 Active units/mL injection (300 Units) 9 solutionIndication intravenously As s: Subacute often as necessary osteomyelitis of for other right hand (HCC) (Specify) (heparin 300 units/3 mL IV FLUSH after completion of each antibiotic infusion (after saline flush)) heparin 300 units/3 mL IV FLUSH after completion of each antibiotic infusion (after saline flush) ceFAZolin Administer 1,000 0 03/18/20 Active (ANCEF;KEFZOL) mg intravenously 9 19 1,000 mg in sodium Every 12 hours chloride 0.9% 50 mLIndications: Subacute osteomyelitis of right hand (HCC) insulin aspart Inject 3-16 Units 10 mL 0 Active (NOVOLOG) SQ subcutaneously 3 9 correction scale times a day with (Adult)Indications meals Insulin Dose : Type 2 diabetes -Blood mellitus with [id number] complication, units,200-249-5 without long-term units,250-299-9 current use of units, 300-349-13 insulin (HCC) units,Over 349-16 units gemfibrozil Take 1 tablet (600 60 tablet 0 Active (LOPID) 600 mg mg) by mouth 1 9 tablet time per day ibuprofen (MOTRIN) Indications: Pain 20 tablet 0 Active 600 mg Sig 1 tab po q 6 h 9 tabletIndications: as needed for pain Pain metFORMIN Take 1 tablet (500 60 tablet 0 Active (GLUCOPHAGE) 500 mg) by mouth 2 9 MG times a day with tabletIndications: meals Indications: Type 2 diabetes Type 2 diabetes propranolol Take 1 capsule 30 capsule 0 Active (INDERAL LA) 120 (120 mg) by mouth 9 mg extended 2 times a day release Indications: capsuleIndications Hypertension : Hypertension traMADol (ULTRAM) Take 1 tablet (50 30 tablet 0 Active 50 mg mg) by mouth every 9 tabletIndications: 4 to 6 hours as moderate to severe needed for pain moderate pain or severe pain Indications: moderate to severe pain vitamin D3, Take 1 tablet 30 tablet 0 Active cholecalciferol, (1,000 Units) by 9 1000 units mouth 1 time per tabletIndications: day Indications: Oral supplements Oral supplements aspirin 325 mg Take 325 mg by 0 02/02/20 Discontinued tablet mouth 1 time per 19 day. 1/2 a tab gemfibrozil Take 600 mg by 0 02/06/20 Discontinued (LOPID) 600 mg mouth 1 time per 19 tablet day propranolol Take 120 mg by 0 02/06/20 Discontinued (INDERAL LA) 120 mouth 2 times a 19 mg extended day. release capsule triamterene-hydroc Take 1 tablet by 0 02/06/20 Discontinued hlorothiazide mouth 1 time per 19 (MAXZIDE) 75-50 mg day. tablet metFORMIN Take 500 mg by 0 02/06/20 Discontinued (GLUCOPHAGE) 500 mouth 2 times a 19 MG tablet day with meals. traMADol (ULTRAM) Take 50 mg by 0 02/06/20 Discontinued 50 mg tablet mouth every 4 to 6 19 hours as needed. vitamin D3, Take 1,000 Units 0 02/06/20 Discontinued cholecalciferol, by mouth 1 time 19 1000 UNITS tablet per day. ibuprofen (MOTRIN) Sig 1 tab po q 6 h 20 tablet 0 02/06/20 Discontinued 600 mg tablet as needed for pain 5 19 sodium chloride Administer 10 mL 0 02/06/20 Discontinued 0.9% prefilled 10 intravenously As 9 19 mL syringe 0.9% often as necessary SOLNIndications: for other Subacute (Specify) (Flush osteomyelitis of infusion line right hand (HCC) before each antibiotic infusion and after each infusion completed) . ceFAZolin Administer 1,000 0 02/06/20 Discontinued (ANCEF;KEFZOL) mg intravenously 9 19 1,000 mg in sodium Every 12 hours for chloride 0.9% 50 28 days mLIndications: Subacute osteomyelitis of right hand (HCC) documented as of this encounter (statuses as of 02/05/2019) Active Problems Problem Noted Date Osteomyelitis 02/01/2019 Gross hematuria 12/25/2014 Bladder mass 12/25/2014 Diabetes mellitus Hypertension Peripheral neuropathy documented as of this encounter (statuses as of 02/05/2019) Social History Tobacco Use Types Packs/Day Years Used Date Passive Smoke Exposure - Never Smoker Smokeless Tobacco: Never Used Alcohol Use Drinks/Week oz/Week Comments No Sexually Active Control Partners Comments Never Sex Assigned at Date Recorded Not on file Job Start Date Occupation Industry Not on file Not on file Not on file Travel History Travel Start Travel End No recent travel history available. documented as of this encounter Last Filed Vital Signs Vital Sign Reading Time Taken Blood Pressure 139/51 02/05/2019 11:35 AM CDT Pulse 64 02/05/2019 11:35 AM CDT Temperature 37 C (98.6 F) 02/05/2019 11:35 AM CDT Respiratory Rate 18 02/05/2019 11:35 AM CDT Oxygen Saturation 100% 02/05/2019 11:35 AM CDT Inhaled Oxygen Concentration - - Weight 51.8 kg (114 lb 3.2 oz) 02/05/2019 5:42 AM CDT Height 154.9 cm (5' 1") 02/01/2019 2:00 PM CDT Body Mass Index 21.58 02/01/2019 2:00 PM CDT documented in this encounter Functional Status Functional Status Response Date of Assessment Is the person deaf or does he/she have serious difficulty No 02/01/2019 hearing? Is this person blind or does he/she have difficulty No 02/01/2019 seeing even when wearing glasses? Do you have difficulty with walking, balance, climbing Yes 02/01/2019 stairs, or had a fall in the last 3 months? Does the patient have difficulty dressing or bathing? No 02/02/2019 Because of a physical, mental, or emotional condition; No 02/02/2019 does this person have difficulty doing errands alone such as visiting a doctor's office or shopping? Cognitive Status Response Date of Assessment Because of a physical, mental, or emotional condition; No 02/02/2019 does this person have serious difficulty concentrating, remembering, or making decisions? documented as of this encounter Discharge Summaries Not on filedocumented in this encounter Discharge Instructions Lucero Garcia RN - 02/05/2019 Leave dressing on until follow up with orthopedics Discharge Instructions: Caring for Your Peripherally Inserted Central Catheter ( PICC) You are going home with a peripherally inserted central catheter (PICC). This small, soft tube has been placed in a vein in your arm. It is often used when treatment requires medicines or nutrition forweeks or months. At home, you need to take care of your PICC to keep it working.Because a PICC line has a high infection risk, you must take extra care washing your hands and preventing the spread ofgerms. This sheet will help you remember what to do to care for your PICC at home. Understanding your role A nurse or other healthcare provider will teach you and your caregivers how to care for the PICC.Before leaving the hospital, make sure you understand what to do at home, how long you may need the PICC, and when to have a follow-up visit. You will likely be told to flush the PICC with saline or heparin solution. You may also be told to change the catheters injection caps and change the dressing (bandage). Or, a nurse may do this for you during a follow-up visit. Only do these things if youre told to, following the instructionsyou were given. Protecting the PICC If the PICC gets damaged, it wont work right and could raise your chance of infection. Call your healthcare team right away if any damage occurs. To protect the PICC at home: Prevent infection. Use good hand hygiene by following the guidelines on this sheet. Dont touchthe catheter or dressing unless you need to. And always clean your hands before and after you come in contact with any part of the PICC. Your caregivers, family members, and any visitors should use good hand hygiene, too. Keep the PICC dry. The catheter and dressing must stay dry. Dont take baths, go swimming, use a hot tub, or do other things that could get the PICC wet. Take a sponge bath to avoid getting your catheter wet, unless your healthcare provider tells you otherwise. Ask your provider about the best way to keep your catheter dry when bathing or showering. If the dressing does get wet, change it only if you have been shown how. Otherwise, call your healthcare team right away for help. Avoid damage. Dont use any sharp or pointy objects around the catheter. This includes scissors, pins, knives, razors, or anything else that could cut it or put a hole in it (puncture it). Also, dont let anything pull or rub on the catheter, such as clothing. Watch for signs of problems. Pay attention to how much of the catheter sticks out from your skin.If this changes at all, let your healthcare provider know. Also watch for cracks, leaks, or other damage. If the dressing becomes dirty, loose, or wet, change it (if you have been instructed to). Or call your healthcare team right away. Avoid lowering your chest below your waist. This includes bending at the waist to do things like tying your shoes. When your chest is below your waist, especially for a long time, the catheters internal tip could slip out of place in the vein. Tell your healthcare team if you vomit or have severe coughing. This can also make the catheter slip out of place. Protecting your arm The arm with the PICC is at risk for developing blood clots (thrombosis). This is a serious problem.To help prevent it: As much as possible, use the arm with the PICC in it for normal daily activities. Lack of movement can lead to blood clots. So its important to move your arm as you normally would. Your healthcare team may suggest light arm exercises. Avoid activities or exercises that require major use of your arm, such as sports, unless your healthcare provider says its OK. Avoid any activities that cause mild pain in your arm. Talk to your healthcare team if you have concerns about pain or range of motion. Dont lift anything heavier than 10 pounds with the affected arm. Drink plenty of water. Staying hydrated helps keep clots from forming. Prevent infection with good hand hygiene A PICC can let germs into your body. This can lead to serious and sometimes deadly infections. To prevent infection, its very important that you, your caregivers, and others around you use good handhygiene. This means washing your hands well with soap and water, and cleaning them with an alcohol-based hand gel as directed. Never touch the PICC or dressing without first using one of these methods. To wash your hands with soap and water: Wet your hands with warm water. (Avoid hot water, which can cause skin irritation when you wash your hands often.) Apply enough soap to cover the whole surface of your hands, including your fingers. Rub your hands together vigorously for at least 15 seconds. Make sure to rub the front and back of each hand up to the wrist, your fingers and fingernails, between the fingers, and each thumb. Rinse your hands with warm water. Dry your hands completely with a new, unused paper towel. Dont use a cloth towel or other reusable towel. These can harbor germs. Use the paper towel to turn off the faucet, then throw it away. If youre in a bathroom, also use a paper towel to open the door instead of touching the handle. When you dont have access to soap and water: Use an alcohol-based hand gel to clean your hands.The gel should have at least 60% alcohol. Follow the instructions on the package. Your healthcare team can answer any questions you have about when to use hand gel, or when its better to wash with soap and water. When to seek medical care Call your provider right away if you have any of the following: Pain or burning in your shoulder, chest, back, arm, or leg Fever of 100.4F (38.0C) or higher Chills Signs of infection at the catheter site (pain, redness, drainage, burning, or stinging) Coughing, wheezing, or shortness of breath A racing or irregular heartbeat Muscle stiffness or trouble moving Tightness in your arm, above the catheter site Gurgling noises coming from the catheter The catheter falls out, breaks, cracks, leaks, or has other damage Date Last Reviewed: 02/05/201619991515-0190 [employer]. [address] [place] [address], [place] [address]. All rights reserved. This information is not intended as a substitute for professional medical care. Always follow your healthcare professional's instructions. Central Line Infections Good handwashing helps prevent central line infections. You need a central line as part of your treatment. Its also called a central venous access device(CVAD) or central venous catheter (CVC). A small, soft tube called a catheter is put in a vein that leads to your heart. The central line is used instead of a standard IV (intravenous) line. It does not need to be replaced as often as a standard IV. This means less pain and fewer needlesticks during treatment. But central lines come with a risk of infection. This sheet tells you more about central line infections and what hospitals are doing to prevent them. And it explains how an infection is treated, if one occurs. Types of central lines With a central line, a catheter is inserted into your body through a vein that leads to the large vein near the heart (vena cava). Types of central lines and their risk of infection are listed below. Which type is best for you depends on your needs and your overall health. Your healthcare provider cantell you which type of line you need, and why. Peripherally inserted central catheter (PICC).This is placed in a large vein in the upper arm, or near the bend of the elbow. Subclavian line. Thisis placed in a vein that runs behind the collarbone. Internal jugular line.This is placed into a large vein in the neck. Infection risk is higher than with a PICC or subclavian line, but lower than with a femoral line. Femoral line.This may be placed in a large vein in the groin. This site is generally not usedbecause of an increased risk for infection. Tunneled catheter. This is run through the soft tissue under the skin before it enters a vein. A small cuff helps hold the catheter in place. Both the tunnel and the cuff help prevent infection. This type of catheter may be placed in any of the above locations. Port. This small device is placed completely under the skin on the arm or chest. Its connectedto a catheter that is threaded into the vena cava. Types of infections A central line provides a direct path into your bloodstream. This gives germs possible access into your body. All types of central lines are associated with some risk of infection. Often, the germs that cause a central line infection come from your own skin. There are 2 possible types of infection: Local infection. This can occur where the central line enters your body. Symptoms include redness, pain, or swelling at or near the catheter site, pain or tenderness along the path of the catheter, and drainage from the skin around the catheter. Systemic infection (also called bacteremia). This can occur if germs get into the bloodstream. This is very serious and can be fatal. Symptoms include sudden fever, shaking chills, a racing heartbeat, confusion, change in behavior , and a skin rash. Risk factors for infection Anyone who has a central line can get an infection. Your risk is higher if you: Are in the intensive care unit (ICU). Have a weakened immune system or serious illness. Are receiving bone marrow or chemotherapy. Have the line for an extended time. Have a central line in your neck or groin. How central line infections are treated Treatment depends on the type of central line, how severe the infection is, and your overall health.Your healthcare provider will prescribe antibiotics to fight the infection. The line may also need to be removed. In some cases, the line is flushed with high doses of antibiotics. This may kill the germs causing the infection, so the line doesnt have to be removed. What hospitals do to prevent infection Hospitals have a plan to reduce central line infections. This plan includes: Good hand hygiene. Hospital staff clean their hands before and after touching the line. They washtheir hands with soap and water. Or they use an alcohol-based hand pattern cleaner containing at least 60% alcohol. Using sterile practices during placement. The healthcare worker who places the line wears germ-free (sterile) clothing including a long-sleeved gown and gloves. Before the line is placed, your skin is cleaned with an antiseptic solution. During placement, you are fully covered with a large sterile sheet (a sterile drape). Only the spot where the line is placed is exposed. After placement, the sitewhere the line enters the body is covered with a sterile bandage (dressing). Choosing a lower-risk vein. Whenever possible, the line is placed in the vein that's right for your treatment and has the lowest infection risk. Some hospitals use lines coated with an antiseptic toreduce the chance of infection. Checking for infection. The line is checked frequently for infection. It is removed as soon as you no longer need it. What you can do to prevent infection Before you get a central line, ask questions. Find out why you need the line and where it will be placed. Learn what steps the hospital is taking to reduce your infection risk. Once the line has been placed, you, your caretakers, and any visitors can help prevent infection by doing the following: Use good hand hygiene. Wash your hands often with soap and water, and use alcohol-based hand gel as directed. To clean your hands effectively, follow the guidelines on this sheet. Visitors should wash hands well when they arrive and when they leave. Make sure healthcare staff clean their hands. They should use soap and water or an alcohol-based hand pattern cleaner before and after checking the line. Dont be afraid to remind them. Keep the line dry. Follow your providers guidelines for showering. If the dressing does get wet, tell your healthcare provider right away. Dont touch the line. Even when your hands are clean, try not to touch the catheter or dressing. Learn the sterile dressing technique. This is important if you will be caring for the line at home. Your provider can show you what to do. Risk for blood clot If a blood clot forms it can block blood flow through the vein where the catheter is placed. Signs of a blood clot include pain or swelling in the neck, face, chest, or arm. If you have any of these symptoms, call your healthcare provider right away. You may need an ultrasound exam to locate the bloodclot and receive treatment with a blood thinner. How to wash your hands To protect the central line from germs, its very important to wash your hands often and clean them well. You and anyone who comes in contact with you should follow these steps: Wet your hands with warm water. (Avoid hot water. It can cause skin irritation when you wash yourhands often.) Apply enough soap to cover the entire surface of your hands, including your fingers. Rub your hands together briskly for at least 15 seconds. Make sure to rub the front and back of each hand up to the wrist, your fingers and fingernails, between the fingers, and each thumb. Rinse your hands with warm water. Dry your hands completely with a new, unused paper towel. Dont use a cloth towel or other reusable towel. These can harbor germs. Use the paper towel to turn off the faucet, then throw it away. If youre in a bathroom, also use a paper towel to open the door instead of touching the handle. Using alcohol-based hand gels When you dont have access to soap and water, alcohol-based hand gels are a good choice for cleaning your hands. The gel should have at least 60% alcohol. Note that some germs can't be killed by alcohol. Your healthcare team can answer any questions you have about when to use hand gel, or when its better to wash with soap and water. Follow these steps: Spread about 1 tablespoon of gel in the palm of one hand. (Check the package for specific guidelines.) Rub your hands together briskly. Clean the backs of your hands, the palms, between your fingers, and up your wrists. Rub until the gel is gone and your hands are completely dry. When to seek medical care Call your healthcare provider right away if you have a central line and develop any of the following: Pain or burning in your shoulder, chest, back, arm, or leg Fever of 100.4F (38.0C) or higher Chills Signs of infection at the catheter site (pain, redness, drainage, burning, or stinging) Coughing, wheezing, or shortness of breath A racing or irregular heartbeat Muscle stiffness or trouble moving Gurgling noises coming from the catheter The catheter falls out, breaks, cracks, leaks, or has other damage Date Last Reviewed: 02/05/201619992473-6753 [employer]. [address] [place] [address]. All rights reserved. This information is not intended as a substitute for professional medical care. Always follow your healthcare professional's instructions. Problems with your PICC: Monday through Monday 8am - 6:00pm Call - Ask for PICC Nurse on beeper #[phone] Evenings My [facility] Nurse - [phone] or Rescue Nurse Call Ask for the Rescue Nurse documented in this encounter Medications at Time of Discharge Medication Sig Dispensed Refills Start Date End Date amLODIPine (NORVASC) Take 1 tablet (10 mg) 90 tablet 4 02/05/20192019 10 mg by mouth 1 time per tabletIndications: day Essential hypertension insulin aspart Inject 3-16 Units 10 mL 0 02/05/2019 (NOVOLOG) SQ subcutaneously 3 times correction scale a day with meals (Adult)Indications: Insulin Dose -Blood Type 2 diabetes [id number] mellitus with units,200-249-5 complication, without units,250-299-9 units, long-term current use 300-349-13 units,Over of insulin (HCC) 349-16 units gemfibrozil (LOPID) Take 1 tablet (600 mg) 60 tablet 0 02/05/2019 600 mg tablet by mouth 1 time per day ibuprofen (MOTRIN) 600 Indications: Pain Sig 20 tablet 0 02/05/2019 mg tabletIndications: 1 tab po q 6 h as Pain needed for pain metFORMIN (GLUCOPHAGE) Take 1 tablet (500 mg) 60 tablet 0 02/05/2019 500 MG by mouth 2 times a day tabletIndications: with meals Type 2 diabetes Indications: Type 2 diabetes propranolol (INDERAL Take 1 capsule (120 30 capsule 0 02/05/2019 LA) 120 mg extended mg) by mouth 2 times a release day Indications: capsuleIndications: Hypertension Hypertension traMADol (ULTRAM) 50 Take 1 tablet (50 mg) 30 tablet 0 02/05/2019 mg tabletIndications: by mouth every 4 to 6 moderate to severe hours as needed for pain moderate pain or severe pain Indications: moderate to severe pain vitamin D3, Take 1 tablet (1,000 30 tablet 0 02/05/2019 cholecalciferol, 1000 Units) by mouth 1 time units per day Indications: tabletIndications: Oral supplements Oral supplements blood glucose test 6 12/09/2014 strip (ACCU-CHEK DALE PLUS) Multiple Take 1 tablet by mouth 0 Vitamins-Minerals 1 time per day. (MULTIVITAMIN PO) sodium chloride 0.9% Administer 10 mL intravenously As often as necessary for other (Specify) (Flush infusion line before each antibiotic infusion and after each infusion completed) Flush infusion line before each antibiotic infusion and after each infusion completed. 0 02/05/2019 prefilled 10 mL Flush line with heparin 300 units/ 3 mL after the last saline flush syringe 0.9% SOLNIndications: Finger infection hEParin 100 units/mL Administer 3 mL (300 0 02/05/2019 injection Units) intravenously solutionIndications: As often as necessary Finger infection for other (Specify) (heparin 300 units/3 mL IV FLUSH after completion of each antibiotic infusion (after saline flush)) heparin 300 units/3 mL IV FLUSH after completion of each antibiotic infusion (after saline flush) sodium chloride 0.9% Administer 10 mL intravenously As often as necessary for other (Specify) (Flush infusion line before each antibiotic infusion and after each infusion completed) Flush infusion line before each antibiotic infusion and after each infusion completed. 0 02/05/2019 prefilled 10 mL Flush line with heparin 300 units/ 3 mL after the last saline flush syringe 0.9% SOLNIndications: Subacute osteomyelitis of right hand (HCC) hEParin 100 units/mL Administer 3 mL (300 0 02/05/2019 injection Units) intravenously solutionIndications: As often as necessary Subacute osteomyelitis for other (Specify) of right hand (HCC) (heparin 300 units/3 mL IV FLUSH after completion of each antibiotic infusion (after saline flush)) heparin 300 units/3 mL IV FLUSH after completion of each antibiotic infusion (after saline flush) ceFAZolin Administer 1,000 mg 0 02/05/2019 03/18/2019 (ANCEF;KEFZOL) 1,000 intravenously Every 12 mg in sodium chloride hours 0.9% 50 mLIndications: Subacute osteomyelitis of right hand (HCC) documented as of this encounter Progress Notes Barron Johansen MD - 02/04/2019 11:45 AM CDT INFECTIOUS DISEASES INPATIENT PROGRESS NOTE 02/04/2019 ASSESSMENT: 1. Right fourth finger cellulitis 2. Right fourth finger septic arthritis 3. Osteolytic lesions/erosive changes of right hand on x-ray, likely osteomyelitis 4. MSSA infection 5. Peripheral neuropathy 6. Nose laceration secondary to ground-level fall 7. Subdural hematoma secondary to ground-level fall PLAN: Patient was transferred from an outside facility for right fourth finger cellulitis and osteomyelitis/septic arthritis. She has now status post I&D which demonstrated felon infection and subcutaneous abscess with PIP septic arthritis of the joint. The operative note indicates that there was copious purulent material along the dorsal ulnar aspect of the PIP joint and the volar aspect of the distal phalanx. Believe she did have deep-seated infection into the joint including osteomyelitis and therefore she will require at least 4-6 weeks of IV antibiotic therapy given severity of infection. Final duration of antibiotics will be determined in ID clinic. RECOMMENDATIONS: 1. Continue cefazolin 1 g IV every 12 hours (end date 03/04/19 or 03/18/19 depending on clinical course) 2. Midline at time of discharge 3. Patient will be receiving her IV antibiotic therapy at [facility] in [place]. 4. Follow up with Dr. Johansen or Dr. Wiley in ID clinic 2 weeks after discharge 5. CBC with differential, creatinine, AST, ESR, and CRP weekly while on this therapy Thank you for allowing me to participate in Kwasi Suárez's care. ID will sign off. Please contact IDwith questions or concerns. Barron Johansen MD #[id number] BACKGROUND: Patient is a 83yr old female who is being followed for right fourth digit cellulitis and septic arthritis with underlying osteomyelitis of PIP joint now status post right ring finger incision and drainage of distal felon and right ring finger PIP joint arthrotomy/incision and drainage of subcutaneous abscess on 02/02. INTERVAL HISTORY: The patient is now seen in follow-up. No new overnight events. Tolerating cefazolin. No new rash orfever. No diarrhea. Has improvement in movement of right hand MCP joint. REVIEW OF SYSTEMS: 12 system review was otherwise negative except as stated in the interval history. MEDICATIONS: Reviewed in EMR ANTIBIOTIC HISTORY: Cefazolin 02/01present Vancomycin 02/01 PHYSICAL EXAM Vital Signs: BP: 155/49; Pulse: 57; Temp: 97.8 F (36.6 C); Resp: 16; SpO2: 97 %;O2 Device: Room Air O2 Flow Rate (L/min): 0 l/min; Maximum Temperatures (last 24 hours) Temperature Maximum Max Temp 98.2 F (36.8 C) Gen: Patient is resting comfortably, in NAD HEET: NC/AT, no thrush Neck: Supple, no masses CVS: Normal S1/S2, RRR, no murmurs/gallops/rubs, no peripheral edema Pulm: Unlabored breathing, clear to auscultation without wheezes/rales/ronchi GI: Non-distended, normal BS, non-tender, no masses, no HSM EXT: Normal ROM of part from right fourth finger PIP and DIP joints. No joint tenderness or swelling, normal capillary refill SKIN: The right fourth finger is covered in dressing. Proximal to this along the metacarpal phalangeal joint, there is minimal erythema and edema, but there is no induration/fluctuance/tenderness in this area. NEURO: Awake and alert, neuropathy in bilateral hands Patient Lines/Drains/Airways Status Active Lines Name: Placement date: Placement time: Site: Days: Peripheral IV 02/01/19 Forearm Distal;Left;Posterior 02/01/19 1714 Forearm 2 Other LDA 02/02/19 incision drain right ring finger Other (Comment) Other ( Comment) 02/02/19 2 Incision 02/02/19 Right Finger (Comment which one) Incision 02/02/19 Finger (Comment whichone) 2 MICRO/ID LABS: Lab Results Component Value Date ESR >120 (H) 02/02/2019 CRP 153.0 (H) 02/01/201902/01 right hand drainage: Few WBCs, rare squamous epithelial cells, rare GPC's in clusters. Culture: Few Staphylococcus aureus Susceptibility Staphylococcus aureus (1) MEL Clindamycin <=0.25 ug/mL Sensitive Erythromycin >=8 ug/mL Resistant Oxacillin 0.5 ug/mL Sensitive1 Penicillin >=0.5 ug/mL Resistant Rifampicin <=0.5 ug/mL Sensitive2 Tetracycline <=1 ug/mL Sensitive Trimethoprim/Sulfamethoxazole <=10 ug/mL Sensitive Vancomycin 1 ug/mL Sensitive 02/01 blood culture 2: No growth to date 02/02 right finger fluid: Many WBCs, no epithelial cells, rare GPC's in pairs. Culture: Many Staphylococcus aureus Susceptibility Staphylococcus aureus (1) MEL Clindamycin <=0.25 ug/mL Sensitive Erythromycin >=8 ug/mL Resistant Oxacillin <=0.25 ug/mL Sensitive1 Penicillin >=0.5 ug/mL Resistant Rifampicin <=0.5 ug/mL Sensitive2 Tetracycline <=1 ug/mL Sensitive Trimethoprim/Sulfamethoxazole <=10 ug/mL Sensitive Vancomycin 1 ug/mL Sensitive Lab Results Component Value Date WBC 11.1 (H) 02/04/2019 HEMOGLOBIN 10.1 (L) 02/04/2019 PLTCOUNT 336 02/04/2019 CREATSERUM 0.86 02/04/2019 ALKPHOS 100 02/01/2019 AST 23 02/01/2019 ALT 14 02/01/2019 IMAGING STUDIES: No new imaging studies aniela Alcaraz PA - 02/04/2019 9:53 AM CDT ORTHOPAEDIC POST OPERATIVE PROGRESS NOTE February 04, 2019 POD # 2 Right ring finger I&D of distal felon, PIP joint arthrotomy/I&D of subcutaneous abscess, right ring finger Patient of Dr. Servin S: Kwasi Suárez is a 83yr female recovering from surgery, denies CP, SOB, N/V, Fever or Chills, numbness/tingling. Pain: well controled O: Temp Readings from Last 1 Encounters: 02/04/19 97.8 F (36.6 C) BP Readings from Last 1 Encounters: 02/04/19 155/49 Pulse Readings from Last 1 Encounters: 02/04/19 57 Gen: Patient sitting up in the chair, alert and orientated, no apparent distress right HAND: Dressing CDI. Warm, well perfused. Able to flex/extend all digits. Sensation intact. No notable erythema. Lab Results Component Value Date WBC 11.1 (H) 02/04/2019 NUCRBC 0 02/04/2019 RBC 3.34 (L) 02/04/2019 HEMOGLOBIN 10.1 (L) 02/04/2019 HEMATOCRIT 29.3 (L) 02/04/2019 MCV 87.7 02/04/2019 MCH 30.2 02/04/2019 MCHC 34.5 02/04/2019 PLTCOUNT 336 02/04/2019 NEUTROPCT 74.7 02/04/2019 LYMPHSPCT 11.8 02/04/2019 MONOSPCT 9.6 02/04/2019 EOSPCT 3.5 02/04/2019 BASOPHILPCT 0.4 02/04/2019 No results found for: INR A/P: 1. s/p Right ring finger I&D of distal felon, PIP joint arthrotomy/I&D of subcutaneous abscess, right ring finger: DVT prophylaxis: patient is ambulatory Pain control: continue same Wound care: keep CDI PT/OT: continue; Activity: as tolerated; Disposition/planning: continue cares; Per Ortho, clear for discharge to appropriate setting when available and medically stable. Follow up: 2 weeks with [facility] and [address] Servin Vickie Multani PA-C - 02/03/2019 11:40 PM CDT ORTHOPEDIC POST OPERATIVE PROGRESS NOTE February 03, 2019 POD # 1 Right ring finger I&D of distal felon, PIP joint arthrotomy/I&D of subcutaneous abscess, right ring finger Patient of Dr. Servin S: Kwasi Suárez is a 83yr female recovering from surgery, denies CP, SOB, N/V, Fever or Chills, numbness/tingling. Reports a good appetite. Pain: none Positive for BM. Is passing flatus. Urinating without difficulty. Patient lived independently before coming to the hospital, and states she would prefer being discharged with home gwendolyn. O: Temp Readings from Last 1 Encounters: 02/03/19 97.6 F (36.4 C) BP Readings from Last 1 Encounters: 02/03/19 152/79 Pulse Readings from Last 1 Encounters: 02/03/19 61 Gen: Patient laying comfortably in bed, alert and orientated, no apparent distress, mood is pleasant Incision: mild drainage. Dressing scant drainage/D/I. right HAND: Warm, well perfused. Brisk capillary refill noted. Sensation intact to light touch. Homans negative, no calf pain bilaterally. Compartments soft and compressible. Motor grossly intact, able to PF/DF ankle and wiggle toes. Lab Results Component Value Date WBC 12.0 (H) 02/03/2019 NUCRBC 0 02/03/2019 RBC 3.28 (L) 02/03/2019 HEMOGLOBIN 10.0 (L) 02/03/2019 HEMATOCRIT 29.1 (L) 02/03/2019 MCV 88.7 02/03/2019 MCH 30.5 02/03/2019 MCHC 34.4 02/03/2019 PLTCOUNT 355 02/03/2019 NEUTROPCT 79.5 02/03/2019 LYMPHSPCT 8.7 02/03/2019 MONOSPCT 8.7 02/03/2019 EOSPCT 2.9 02/03/2019 BASOPHILPCT 0.2 02/03/2019 No results found for: INR A/P: 1. s/p Right ring finger I&D of distal felon, PIP joint arthrotomy/I&D of subcutaneous abscess, right ring finger: DVT prophylaxis: patient is ambulatory Pain control: continue current medications Wound care: continue with dressing changes PT/OT: continue; Activity: as tolerated; Disposition/planning: continue cares; Follow up: 2 weeks with [facility] and [address] Gareth Armas PA-C Len Majano MD - 02/02/2019 7:26 AM CDT PROGRESS NOTE Patient Name: Kwasi Suárez Age/Sex: 83yr/female Date of Admission: 02/01/2019 Day #: 0 CSN: [id number] Assessment and Plan #Right fourth digit cellulitis with probable osteomyelitis #Peripheral neuropathy Fingernail pealed then progressively worsened with edema and skin pealing. Drainage. Tip black. Cultures in outside facility grew staph. ESR >120; CRP 153. Drainage from finger positive for gram positive cocci. Plan for I/D today. 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 Denies SOB. On room air. -Echo showed aortic sclerosis; normal EF -Continue to monitor #Acute kidney injury, improving #Hyponatremia, hypovolemic, resolved Creatinine increased after receiving Lasix in outside facility. She was also on vancomycin. Improvedtoday on IV fluids. -NS 75 mL/hr -Continue to monitor Chronic Problems: HTN: Hold Maxzide. Continue Propranolol. Start amlodipine 5 mg daily DM2: hold metformin. Sliding scale Dyslipidemia: hold gemfibrozil. Lipid panel. Primary prevention: hold aspirin 324 mg DVT prophylaxis: SCD Code: DNR Diet: NPO/meds. Advance diet as tolerated to regular after surgery Disposition: Inpatient HPI 83 year old woman with hypertension, dyslipidemia, and diabetes mellitus type 2 was a direct admit from outside facility for right fourth digit cellulitis/ osteomyelitis. Saw her family doctor in clinic who was concerned about her finger and had her admitted in outside facility. Fell Monday night in the hospital. Tripped over long pajama legs. Fell on nose and face. [address] head showed small subdural hematoma. Peripheral neuropathy since 1970. Hurts at night. Numbness up to knees and elbows. 15 years diabetes. Right fourth finger. Finger nail pealed off. Finger nails always peal off. Last Monday right fourth fingernail pealed off. Swelling and drainage pursued and progressively worsened. Started on IV abx in outside facility. Finger continued to worsen. Tip of finger black. X-ray and bone scan suspicous for osteomyelitis. Transferred to [facility] for further care. Labs outside facility: WBC 13.9, Hb 9.3, D-dimer 3540, Na 129, BUN 36, Cr 2.11 ( 1.27 on 01/31/19), CRP 19, EKG normal sinus, X-ray right 4th finger showed swelling and changes concerning for osteomyelitis. Recent Events No acute events overnight. No pain right hand because of neuropathy. Hyponatremia resolved on IV NS.Creatinine improving. Had a couple loose stools. Will continue to monitor. Blood pressure elevated requiring PRN labetalol. Home Maxzide had been held. Amlodipine 5 mg started. Review of Systems Review of Systems Respiratory: Negative for shortness of breath. Cardiovascular: Negative for chest pain. Gastrointestinal: Negative for abdominal pain. Genitourinary: Negative for dysuria. Physical Exam Blood pressure 188/90, pulse 70, temperature 97.7 F (36.5 C), resp. rate 17 , height 154.9 cm (61"), weight 54.8 kg (120 lb 12.8 oz), SpO2 100 %. Physical Exam Cardiovascular: Normal rate. Murmur heard. Pulmonary/Chest: Effort normal and breath sounds normal. She has no wheezes. She has no rales. Abdominal: Soft. Bowel sounds are normal. There is no tenderness. There is no rebound. Musculoskeletal: Right fourth finger wrapped. Nursing note and vitals reviewed. Patient Lines/Drains/Airways Status Active Lines Name: Placement date: Placement time: Site: Days: Peripheral IV 02/01/19 Forearm Distal;Left;Posterior 02/01/19 1714 Forearm less than 1 Labs Lab Results Component Value Date NA 130 (L) 02/01/2019 POTASSIUM 3.6 02/01/2019 CL 95 (L) 02/01/2019 CO2 21 02/01/2019 CREATSERUM 2.55 (H) 02/01/2019 BUN 51 (H) 02/01/2019 CA 9.5 02/01/2019 No results found for: WBC Lab Results Component Value Date CRP 153.0 (H) 02/01/2019 , No results found for: ESR No results found for: HEMOGLOBIN No results found for: PLTCOUNT No results found for: PT, INR POC Glucose 02/02/19 0513 02/01/19 2124 02/01/19 1818 02/01/19 1556 POC Glucose 189 153 184 Lab Glucose 223 Intake/Output Summary (Last 24 hours) at 02/02/2019 0726 Last data filed at 02/02/2019 0600 Gross per 24 hour Intake 1278 ml Output Net 1278 ml Weight change: 12/19 1900 - 02/02 1859 In: 1278 [Oral:10] Out: - Net: 1278 Associated attestation - Marc Ta MD - 02/03/2019 9:46 AM CDT Patient was seen and discussed with the resident; I personally interviewed and examined the patient. I agree with the resident's diagnosis and management. Medical Decision Making I have: Independently visualized and interpreted an image, tracing or specimen previously or subsequently interpreted by another provider. Discussed results of laboratory, radiology or other diagnostic tests with the physician who performed or interpreted the study. Obtained/reviewed old records from [place] or elsewhere (details outlined elsewhere in note). Obtained history from a person other than the patient (details outlined elsewhere in note). Discussed case with another provider (details outlined elsewhere in note). A total of 35 minutes was spent with the patient or on the floor today, greater than 50% of which was spent in counseling regarding today's findings/assessment/ plan and in coordination of care, chart review, medical decision making, and documentationMike Pang, PHARM STUDENT - 02/01/2019 3:45 PM CDT02/01/2019 3 :46 PM -- Patient was seen by the pharmacy med reconciliation team and HOME MEDICATIONS have been reconciled and updated to match the patient's home usage. Changed on med list: Gemfibrozil - once daily Removed from med list: Aspirin Ibuprofen Patient states she usually takes 1/2 tablet of Tramadol at 1530 and 1 tablet at 2100. She also stated she has been taking her gemfibrozil one time per day. Patient denies use of other inhalers, creams/ointments, eye/ear drops, patches or injectables, OTC, vitamins and/or herbal products. Mike Pang, MARKUS STUDENT documented in this encounter Plan of Treatment Date Type Specialty Care Team Description 02/15/2019 Office Visit Orthopedics Davidson Galvan PA [address] [place] [address] [phone] 02/18/2019 Office Visit Infectious Diseases Deandre Wiley MD [address] [place] [address] [phone] 03/01/2019 Office Visit Orthopedics Endy Servin MD [address] [place] [address] [phone] Name Priority Associated Diagnoses Date/Time CULTURE, BLOOD CHRISTIANO 02/01/2019 8:44 PM CDT CULTURE, BLOOD CHRISTIANO 02/01/2019 8:44 PM CDT CULTURE BACTERIAL, ANAEROBE Routine Infection 02/02/2019 9:50 AM CDT CULTURE FUNGAL, OTHER Routine Infection 02/02/2019 9:50 AM CDT Name Priority Associated Diagnoses Order Schedule COMPLETE BLOOD COUNT WITH Routine Early AM draw for labs DIFFERENTIAL until discontinued starting 02/02/2019, 3 completed RENAL FUNCTION PANEL Routine Early AM draw for labs until discontinued starting 02/02/2019, 4 completed MAGNESIUM Routine Early AM draw for labs until discontinued starting 02/02/2019, 4 completed CULTURE BACTERIAL, Routine Infection ONCE for 1 Occurrences ANAEROBE starting 02/02/2019, 1 completed CULTURE FUNGAL, OTHER Routine Infection ONCE for 1 Occurrences starting 02/02/2019, 1 completed AST Routine Subacute osteomyelitis of Once a week for 6 right hand (HCC) Occurrences starting 02/04/2019 until 04/07/2019 COMPLETE BLOOD COUNT WITH Routine Subacute osteomyelitis of Once a week for 6 DIFFERENTIAL right hand (HCC) Occurrences starting 02/04/2019 until 04/07/2019 CREATININE Routine Subacute osteomyelitis of Once a week for 6 right hand (HCC) Occurrences starting 02/04/2019 until 04/07/2019 C-REACTIVE PROTEIN Routine Subacute osteomyelitis of Once a week for 6 QUANTITATIVE right hand (HCC) Occurrences starting 02/04/2019 until 04/07/2019 ESR Routine Subacute osteomyelitis of Once a week for 6 right hand (HCC) Occurrences starting 02/04/2019 until 04/07/2019 documented as of this encounter Procedures Procedure Name Priority Date/Time Associated Comments Diagnosis GLUCOSE BY METER, Routine 02/05/2019 10:58 Results for this POCT AM CDT procedure are in the results section. GLUCOSE BY METER, Routine 02/05/2019 6:06 Results for this POCT AM CDT procedure are in the results section. LAB ONLY-COMPLETE Routine 02/05/2019 5:30 Results for this BLOOD COUNT WITH AM CDT procedure are in DIFFERENTIAL the results section. MAGNESIUM Routine 02/05/2019 5:30 Results for this AM CDT procedure are in the results section. RENAL FUNCTION PANEL Routine 02/05/2019 5:30 Results for this AM CDT procedure are in the results section. COMPLETE BLOOD COUNT Routine 02/05/2019 5:30 Results for this WITH DIFFERENTIAL AM CDT procedure are in the results section. GLUCOSE BY METER, Routine 02/04/2019 9:53 Results for this POCT PM CDT procedure are in the results section. GLUCOSE BY METER, Routine 02/04/2019 5:15 Results for this POCT PM CDT procedure are in the results section. GLUCOSE BY METER, Routine 02/04/2019 11:05 Results for this POCT AM CDT procedure are in the results section. GLUCOSE BY METER, Routine 02/04/2019 5:52 Results for this POCT AM CDT procedure are in the results section. LAB ONLY-COMPLETE Routine 02/04/2019 5:33 Results for this BLOOD COUNT WITH AM CDT procedure are in DIFFERENTIAL the results section. MAGNESIUM Routine 02/04/2019 5:33 Results for this AM CDT procedure are in the results section. RENAL FUNCTION PANEL Routine 02/04/2019 5:33 Results for this AM CDT procedure are in the results section. COMPLETE BLOOD COUNT Routine 02/04/2019 5:33 Results for this WITH DIFFERENTIAL AM CDT procedure are in the results section. GLUCOSE BY METER, Routine 02/03/2019 9:00 Results for this POCT PM CDT procedure are in the results section. GLUCOSE BY METER, Routine 02/03/2019 6:12 Results for this POCT PM CDT procedure are in the results section. GLUCOSE BY METER, Routine 02/03/2019 11:52 Results for this POCT AM CDT procedure are in the results section. RENAL FUNCTION PANEL Routine 02/03/2019 11:29 Results for this AM CDT procedure are in the results section. GLUCOSE BY METER, Routine 02/03/2019 5:46 Results for this POCT AM CDT procedure are in the results section. LAB ONLY-COMPLETE Routine 02/03/2019 5:29 Results for this BLOOD COUNT WITH AM CDT procedure are in DIFFERENTIAL the results section. COMPLETE BLOOD COUNT Routine 02/03/2019 5:29 Results for this WITH DIFFERENTIAL AM CDT procedure are in the results section. MAGNESIUM Routine 02/03/2019 5:28 Results for this AM CDT procedure are in the results section. RENAL FUNCTION PANEL Routine 02/03/2019 5:28 Results for this AM CDT procedure are in the results section. GLUCOSE BY METER, Routine 02/02/2019 8:59 Results for this POCT PM CDT procedure are in the results section. GLUCOSE BY METER, Routine 02/02/2019 5:13 Results for this POCT PM CDT procedure are in the results section. GLUCOSE BY METER, Routine 02/02/2019 11:35 Results for this POCT AM CDT procedure are in the results section. CULTURE BACTERIAL, Routine 02/02/2019 9:50 Infection Results for this OTHER WITH GRAM STAIN AM CDT procedure are in the results section. LAB ONLY-COMPLETE Routine 02/02/2019 8:43 Results for this BLOOD COUNT WITH AM CDT procedure are in DIFFERENTIAL the results section. LIPID PANEL Routine 02/02/2019 8:43 Results for this AM CDT procedure are in the results section. ESR Routine 02/02/2019 8:43 Results for this AM CDT procedure are in the results section. MAGNESIUM Routine 02/02/2019 8:43 Results for this AM CDT procedure are in the results section. RENAL FUNCTION PANEL Routine 02/02/2019 8:43 Results for this AM CDT procedure are in the results section. COMPLETE BLOOD COUNT Routine 02/02/2019 8:43 Results for this WITH DIFFERENTIAL AM CDT procedure are in the results section. DEBRIDEMENT UPPER 02/02/2019 8:40 Infection EXTREMITY AM CDT Special Needs 2ND CASE, CYSTO TUBING, 3L SALINE, SILASTIC HAND DRAIN GLUCOSE BY METER, POCT Routine 02/02/2019 5:13 AM CDT GLUCOSE BY METER, POCT Routine 02/01/2019 9:24 PM CDT ECHO ADULT COMPLETE Routine 02/01/2019 7:04 PM CDT GLUCOSE BY METER, POCT Routine 02/01/2019 6:18 PM CDT CULTURE BACTERIAL, OTHER Routine 02/01/2019 5:31 PM CDT Results for this WITH GRAM STAIN procedure are in the results section. C-REACTIVE PROTEIN Routine 02/01/2019 3:56 PM CDT Results for this (INFLAMMATION) procedure are in the results section. COMPREHENSIVE METABOLIC Routine 02/01/2019 3:56 PM CDT Results for this PANEL procedure are in the results section. documented in this encounter Results GLUCOSE BY METER, POCT (02/05/2019 10:58 AM CDT)Only the most recent of16 resultswithin the time period is included. Glucose POC 207 (H) 70 - 100 mg/dL [facility] POINT OF CARE TESTING Specimen Blood Performing Organization Address City/State/Zipcode Phone Number [facility] POINT OF [address] [place] [address] CARE TESTING LAB ONLY-COMPLETE BLOOD COUNT WITH DIFFERENTIAL (02/05/2019 5:30 AM CDT)Only the most recent of4 resultswithin the time period is included. WBC 11.6 (H) 4.0 - 11.0 K/uL [address] RBC 3.39 (L) 3.80 - 5.[address] M/uL Hemoglobin 10.5 (L) 11.5 - 15.[address] g/dL Hematocrit 30.0 (L) 35.0 - 45.0 % [address] MCV 88.5 80.0 - 98.[address] MCH 31.0 25.5 - 34.[address] MCHC 35.0 31.5 - 36.[address] g/dL RDW-CV 13.1 11.5 - 15.5 % [address] RDW-SD 41.5 35.5 - 50.[address] Platelet Count 327 140 - 400 K/uL [address] MPV 9.4 8.5 - 12.[address] Seg Neut Absolute 8.1 (H) 1.8 - 8.0 K/uL [address] Lymphocytes Absolute 2.0 0.8 - 4.1 K/uL [address] Monocytes Absolute 1.2 (H) 0.0 - 1.0 K/uL [address] Eosinophils Absolute 0.3 0.0 - 0.7 K/uL [address] Basophil Absolute 0.0 0.0 - 0.2 K/uL [address] Immature Granulocyte 0.19 (H) 0.00 - 0.[address] Absolute K/uL Neutrophils Abs. 8,100 /uL [address] (Segs and Bands) Neutrophils Percent 70.1 % [address] Lymphocytes Percent 17.1 % [address] Monocytes Percent 10.3 % [address] Immature Granulocyte 1.6 % [address] Percent Eosinophils Percent 2.2 % [address] Basophil Percent 0.3 % [address] Nucleated RBC 0 /[address] Specimen Blood Performing Organization Address City/State/Zipcode Phone Number [address] [place] [address], [place] [address] MAGNESIUM (02/05/2019 5:30 AM CDT)Only the most recent of4 resultswithin the time period is included. Magnesium 1.5 (L) 1.8 - 2.4 mg/dL [address] Specimen Blood Performing Organization Address [facility] [place] Phone Number [address] [place] [id number] RENAL FUNCTION PANEL (02/05/2019 5:30 AM CDT)Only the most recent of5 resultswithin the time period is included. Glucose 249 (H) 70 - 100 mg/dL [address] BUN 15 6 - 22 mg/dL [address] Creatinine 0.85 0.60 - 1.[address] mg/dL BUN/Creatinine Ratio 17.6 10.0 - 25.[address] Sodium 135 135 - 145 meq/L [address] Potassium 3.5 3.5 - 5.3 meq/L [address] Chloride 97 (L) 99 - 110 meq/L [address] CO2 27 20 - 29 meq/L [address] Anion Gap with K 15 6 - 20 meq/L [address] Calcium 8.5 8.5 - 10.5 mg/dL [address] Phosphorus 2.0 (L) 2.5 - 4.5 mg/dL [address] Albumin 3.2 (L) 3.5 - 5.0 g/dL [address] Corrected Calcium 9.1 8.5 - 10.5 mg/dL [address] Age [address] eGFR Non- 64 >=[address] Syrian mL/min/1.73m2 eGFR 77 >=[address] mL/min/1.73m2 Specimen Blood Performing Organization Address [facility] [place] Phone Number [address] [place] [address], [place] [address] CULTURE BACTERIAL, OTHER WITH GRAM STAIN (02/02/2019 9:50 AM CDT)Only the most recent of2 resultswithin the time period is included. Culture Result STAPHYLOCOCCUS AUREUS [facility] (!) [facility] Gram Stain Many (>25/LPF) WBC's [facility] Gram Stain Many (>25/LPF) RBC's [facility] Gram Stain No epithelial cells [facility] Gram Stain Rare (less than 1/OIF) [facility] Gram positive cocci in CLINIC pairs Specimen Fluid Narrative Performed At Right ring finger pus [facility] Specimen was collected on a swab. Organism Antibiotic Method Susceptibility Staphylococcus aureus Clindamycin MEL <=0.25 ug/mL: Sensitive Staphylococcus aureus Erythromycin MEL >=8 ug/mL: Resistant Staphylococcus aureus Oxacillin MEL <=0.25 ug/mL: Sensitive Comment: Oxacillin predicts susceptibility to cefazolin, cephalexin, nafcillin and dicloxacillin. Staphylococcus aureus Penicillin MEL >=0.5 ug/mL: Resistant Staphylococcus aureus Rifampicin MEL <=0.5 ug/mL: Sensitive Comment: Rifampicin should not be used alone for antimicrobial therapy. Staphylococcus aureus Tetracycline MLE <=1 ug/mL: Sensitive Staphylococcus aureus Trimethoprim/Sulfamethoxazole MEL <=10 ug/mL: Sensitive Staphylococcus aureus Vancomycin MEL 1 ug/mL: Sensitive Comment: Oxacillin results can be applied to the other penicillinase-stable penicillins (cloxacillin, dicloxacillin, flucloxacillin, methicillin, and nafcillin), beta lactam/beta lactamase inhibitor combinations , antistaphylococcal cephems, and carbapenems approved for use by the FDA for staphylcoccal infections. Oxacillin resistant staphylococci are resistant to all currently available beta lactam antimicrobial agents, with the exception of the newer cephalosporins with anti-MRSA activity. Performing Organization Address City/State/[facility] Phone Number [address] [address] LIPID PANEL (02/02/2019 8:43 AM CDT) Cholesterol 160 100 - 200 mg/dL [facility] Triglyceride 218 (H) 50 - 150 mg/dL [facility] HDL 18 (L) 40 - 80 mg/dL [facility] LDL 98 0 - 129 mg/dL [facility] Specimen Blood Performing Organization Address City/State/[facility] Phone Number [facility] [address] [place] [address] ESR (02/02/2019 8:43 AM CDT) ESR >120 (H) 0 - 20 mm/Hr [address] Specimen Blood Performing Organization Address [facility]/Zipcode Phone Number [address] [place] [address] ECHO ADULT COMPLETE (02/01/2019 7:04 PM CDT) Specimen Narrative Performed At [facility] Patient: KWASI SUÁREZ MR#: [id number] Exam Date: 02/01/2019 Transthoracic Echocardiogram [facility] [address] [facility], [id number] : 178/75 mmHg HR:73 bpm : 1935Exam Location: Bedside Height:61.00 "( 154.9 cm) Age: 83 year(s)Patient Room: [facility] 01Weight:120 lbs.( 54.43 kg) Gender:FemalePatient Status: Inpatient BSA: 1.52 m2 [employer] H[employer] Developer:JUANITO JACINTO ENMANUEL Reading Physician:JAMILAH MENDOZA MD [facility] Ordering Physician: MARC TA MD Referring Physician:MICHELLE AVILA Procedure Indication(s): Mumur, pleural effusions Examination: TTE Complete 2D(m-mode), Complete Spectral Doppler, Color Doppler Image Quality: Technically Difficult Conclusions Overall Conclusions This is an abnormal study. Left Ventricle: Normal left ventricular systolic function. The ejection fraction is visually estimated to be 65 %. Aortic Valve: Moderate aortic cuspal calcification. Mild aortic stenosis. Aortic valve mean gradient may be underestimated due to poor angle to flow. Mitral Valve: [id number]-[id number] mitral regurgitation. Right Ventricle: Pulmonary artery systolic pressure is measured at 45 mmHg. Pulmonary Artery: Mild pulmonary artery hypertension. Tricuspid Valve: Moderate tricuspid regurgitation. Comparison Study Comparison Study: No previous echo was available for comparison Findings Left Ventricle: Normal left ventricular size. Normal left ventricular wall thickness. Normal left ventricular systolic function. The ejection fraction is visually estimated to be 65 %. There are no left ventricular regional wall motion abnormalities. Indeterminate diastolic function. Left Atrium: Dilated left atrium by visual assessment. Aortic Valve: The aortic valve is tricuspid. Moderate aortic cuspal calcification. Reduced aortic cuspal mobility. No significant aortic regurgitation. Mild aortic stenosis. Aortic valve mean gradient may be underestimated due to poor angle to flow. Aorta: The sinus of valsalva is normal in size measuring 27.0 mm. The ascending aorta is normal in size measuring 34.0 mm. Mitral Valve: Mild mitral leaflet thickening. [id number] mitral regurgitation. No mitral stenosis. IAS: No gross evidence of shunt flow seen; however the possibility of a PFO cannot be completely ruled out. Right Ventricle: Normal right ventricular size. Unable to assess right ventricular function due to poor image quality. Pulmonary artery systolic pressure is measured at 45 mmHg. Pulmonary Artery: Mild pulmonary artery hypertension. Right Atrium: Dilated right atrium by visual assessment. Tricuspid Valve: Normal tricuspid valve structure. Moderate tricuspid regurgitation. Pulmonic Valve: Normal pulmonary valve structure. Mild pulmonary regurgitation. The mean pulmonic valve acceleration time is 79 ms. IVC: Normal IVC size with normal respirophasic changes. Pericardium: No significant pericardial effusion. Exam Details Image Quality:Technically Difficult Measurements Left Ventricle Aortic Valve Label ValueNormal Value Label Value Normal Value LVDd, 2D38.3 mm LVOT Vmax 109 cm/s LVDs, 2D28.7 mm AV Vmax 175 cm/s IVSd, 2D8.9 mm LVOTd 19 mm LVPWd, 2D 9.7 mm LVOT VTI22.6 cm Cardiac Output4.67 L/min LVOT PGmax5 mmHg Cardiac Index 3.07 AV Limxr917 cm/s L/min/m-sq AV VTI 41 cm FS, 2D25.07 % AV PGmax12 mmHg LVEDVI, 2D41.4 ml/m2 AV PGmean 8 mmHg LVESVI, 2D34.9 ml/m2 ESTEBAN (Vmax)1.8 cm-sq Stroke Index42.11 AV Vmax, [id number] cm/s ml/m-sq Obstructive Index 0.62 Aorta (Vmax) Label ValueNormal Value Obstruction Index 0.55 Ao Asc34 mm (VTI) Ao Sinus, MM27 mm ESTEBAN(VTI)1.6 cm-sq Ao Sinus, 2D27 mm Mitral Valve Heart Rate Label Value Normal Value Label ValueNormal Value MV E Vmax 105 cm/s Heart Rate73 bpm MV A Vmax 63 cm/s MV E/A1.67 MV E/E' lateral 13.2 MV E/E' ucvcsm80.5 MV Dec Time 126 ms MV E' septal6.4 cm/s MV VTI27.6 cm MVA (VTI) 2.3 cm-sq MV PGmax5 mmHg MV PGmean 2 mmHg MV E' lateral 7.9 cm/s Tricuspid Valve Label ValueNormal Value TR Vmax 310 cm/s TR Pmax 42 mmHg RA Pressure 3 mmHg RVSP45 mmHg Pulmonic Valve Label ValueNormal Value PV Vmax 80 cm/s PV PGmax3 mmHg Procedure Note Interface, Inc Results No Pull Forward - 02/02/2019 10:57 AM CDT Patient: KWASI SUÁREZ MR#: [id number] Exam Date: 02/01/2019 Transthoracic Echocardiogram [place] [id number] [place] [address] BP: 178/75 mmHg HR: 73 bpm : 1935 Exam Location: Bedside Height: 61.00 "(154.9 cm) Age: 83 year(s) Patient Room: 835 Weight: 120 lbs.(54.43 kg) Gender: Female Patient Status: Inpatient BSA: 1.52 m2 [employer] Developer: JUANITO JACINTO ENMANUEL Reading Physician: JAMILAH MENDOZA MD [facility] Ordering Physician: MARC TA MD Referring Physician: MICHELLE AVILA Procedure Indication(s): Mumur, pleural effusions Examination: TTE Complete 2D(m-mode), Complete Spectral Doppler, Color Doppler Image Quality: Technically Difficult Conclusions Overall Conclusions This is an abnormal study. Left Ventricle: Normal left ventricular systolic function. The ejection fraction is visually estimated to be 65 %. Aortic Valve: Moderate aortic cuspal calcification. Mild aortic stenosis. Aortic valve mean gradient may be underestimated due to poor angle to flow. Mitral Valve: Ipyw-ej-ivsektsz mitral regurgitation. Right Ventricle: Pulmonary artery systolic pressure is measured at 45 mmHg. Pulmonary Artery: Mild pulmonary artery hypertension. Tricuspid Valve: Moderate tricuspid regurgitation. Comparison Study Comparison Study: No previous echo was available for comparison Findings Left Ventricle: Normal left ventricular size. Normal left ventricular wall thickness. Normal left ventricular systolic function. The ejection fraction is visually estimated to be 65 %. There are no left ventricular regional wall motion abnormalities. Indeterminate diastolic function. Left Atrium: Dilated left atrium by visual assessment. Aortic Valve: The aortic valve is tricuspid. Moderate aortic cuspal calcification. Reduced aortic cuspal mobility. No significant aortic regurgitation. Mild aortic stenosis. Aortic valve mean gradient may be underestimated due to poor angle to flow. Aorta: The sinus of valsalva is normal in size measuring 27.0 mm. The ascending aorta is normal in size measuring 34.0 mm. Mitral Valve: Mild mitral leaflet thickening. Jgzd-sr-ykddstga mitral regurgitation. No mitral stenosis. IAS: No gross evidence of shunt flow seen; however the possibility of a PFO cannot be completely ruled out. Right Ventricle: Normal right ventricular size. Unable to assess right ventricular function due to poor image quality. Pulmonary artery systolic pressure is measured at 45 mmHg. Pulmonary Artery: Mild pulmonary artery hypertension. Right Atrium: Dilated right atrium by visual assessment. Tricuspid Valve: Normal tricuspid valve structure. Moderate tricuspid regurgitation. Pulmonic Valve: Normal pulmonary valve structure. Mild pulmonary regurgitation. The mean pulmonic valve acceleration time is 79 ms. IVC: Normal IVC size with normal respirophasic changes. Pericardium: No significant pericardial effusion. Exam Details Image Quality: Technically Difficult Measurements Left Ventricle Aortic Valve Label Value Normal Value Label Value Normal Value LVDd, 2D 38.3 mm LVOT Vmax 109 cm/s LVDs, 2D 28.7 mm AV Vmax 175 cm/s IVSd, 2D 8.9 mm LVOTd 19 mm LVPWd, 2D 9.7 mm LVOT VTI 22.6 cm Cardiac Output 4.67 L/min LVOT PGmax 5 mmHg Cardiac Index 3.07 AV Vmean 132 cm/s L/min/m-sq AV VTI 41 cm FS, 2D 25.07 % AV PGmax 12 mmHg LVEDVI, 2D 41.4 ml/m2 AV PGmean 8 mmHg LVESVI, 2D 34.9 ml/m2 ESTEBAN (Vmax) 1.8 cm-sq Stroke Index 42.11 AV Vmax, Caliper 175 cm/s ml/m-sq Obstructive Index 0.62 Aorta (Vmax) Label Value Normal Value Obstruction Index 0.55 Ao Asc 34 mm (VTI) Ao Sinus, MM 27 mm ESTEBAN (VTI) 1.6 cm-sq Ao Sinus, 2D 27 mm Mitral Valve Heart Rate Label Value Normal Value Label Value Normal Value MV E Vmax 105 cm/s Heart Rate 73 bpm MV A Vmax 63 cm/s MV E/A 1.67 MV E/E' lateral 13.2 MV E/E' septal 16.5 MV Dec Time 126 ms MV E' septal 6.4 cm/s MV VTI 27.6 cm MVA (VTI) 2.3 cm-sq MV PGmax 5 mmHg MV PGmean 2 mmHg MV E' lateral 7.9 cm/s Tricuspid Valve Label Value Normal Value TR Vmax 310 cm/s TR Pmax 42 mmHg RA Pressure 3 mmHg RVSP 45 mmHg Pulmonic Valve Label Value Normal Value PV Vmax 80 cm/s PV PGmax 3 mmHg Performing Organization Address [facility] Phone Number [facility], [place] C-REACTIVE PROTEIN (INFLAMMATION) (02/01/2019 3:56 PM CDT) Pathologist [facility] CRP 153.0 (H) 0.0 - 8.0 mg/L [address] Specimen Blood Performing Organization Address [facility] Phone Number [place] [address] [place] [address] COMPREHENSIVE METABOLIC PANEL (02/01/2019 3:56 PM CDT) [facility] Glucose 223 (H) 70 - 100 mg/dL [address] BUN 51 (H) 6 - 22 mg/dL [address] Creatinine 2.55 (H) 0.60 - 1.[address] mg/dL BUN/Creatinine Ratio 20.0 10.0 - 25.[address] Sodium 130 (L) 135 - 145 meq/L [address] Potassium 3.6 3.5 - 5.3 meq/L [address] Chloride 95 (L) 99 - 110 meq/L [place] [address] [facility] CO2 21 20 - 29 meq/L [address] Anion Gap with K 18 6 - 20 meq/L [address] Calcium 9.5 8.5 - 10.5 [place] [address] CLINIC mg/dL Protein Total 6.4 6.0 - 8.2 g/dL [address] Albumin 3.2 (L) 3.5 - 5.0 g/dL [address] Alkaline Phosphatase 100 30 - 150 U/L [address] AST - SGOT 23 0 - 35 U/L [address] ALT - SGPT 14 0 - 55 U/L [address] Bilirubin Total 0.2 0.2 - 1.2 mg/dL [address] Corrected Calcium 10.1 8.5 - 10.[address] mg/dL Age [address] eGFR Non- 18 (L) >=[address] Syrian mL/min/1.73m2 eGFR 22 (L) >=[address] mL/min/1.73m2 Specimen Blood Narrative Performed At For patients with a GFR <45 a referral to Nephrology is [address] recommended. Performing Organization Address City/State/Zipcode Phone Number [address] [place] [address], [place] [address] documented in this encounter Visit Diagnoses Diagnosis Subacute osteomyelitis of right hand (HCC) - Primary Acute osteomyelitis, hand Infection Unspecified infectious and parasitic diseases Finger infection Unspecified local infection of skin and subcutaneous tissue Type 2 diabetes mellitus with complication, without long-term current use of insulin (HCC) Essential hypertension Unspecified essential hypertension Low back pain without sciatica, unspecified back pain laterality, unspecified chronicity Osteomyelitis (HCC) Unspecified osteomyelitis, site unspecified documented in this encounter Discharge Diagnoses Not on filedocumented in this encounter Administered Medications Medication Order MAR Action Action Date Dose Rate Site amLODIPine (NORVASC) tablet 10 mg Given 02/05/2019 8:47 AM CDT 10 mg 10 mg, Oral, Daily, First dose on Mon02/03/19 at 0900, Until Discontinued, Hold for SBP less than 100, Given 02/04/2019 8:22 AM CDT 10 mg Given 02/03/2019 9:57 AM CDT 10 mg carbohydrate 15 g 15 g, Oral, PRN per parameter, Starting Mon02/01/19 at 1527, Until Discontinued , low blood glucose, Give 15 grams of carbohydrate if blood glucose is less than 70 mg/dL, patient is responsive and able to take food or oral meds. Recheck blood glucose in 15 minutes. Repeat 1 time and call MD. If recheck is greater than 70 mg/dL and able to take food or oral meds, give 15 gram carbohydrate if meal or snack due in more than an hour. Serve meal or snack if due in less than 1 hour. See hypoglycemia treatment on cardex. Sources of 15 grams carbohydrate: a.4 oz of fruit juice or b.4 oz of soda pop (NOT diet) or c.1 tablespoon of honey, ceFAZolin (ANCEF) 1000 mg/10 mL sterile Given 02/05/2019 5:52 AM CDT 1,000 mg water IV syringe 1,000 mg, IV, Every eight hours, First dose on Mon02/04/19 at 1400, Until Discontinued, 10 mL, Administer over 3 minutes., Given 02/04/2019 9:43 PM CDT 1,000 mg Given 02/04/2019 3:01 PM CDT 1,000 mg dextrose 50% IV solution 50 mL 50 mL (25 g), IV, PRN per parameter, Starting Mon02/01/19 at 1527, Until Discontinued, low blood glucose, 50 mL, Give if blood glucose is less than 70 mg/dL, patient is unresponsive or NPO, and has IV access. Recheck blood glucose in 15 minutes and call MD. Repeat dose if recheck less than 70 mg/dL and call MD. If recheck is greater than 70 mg/dL and able to take food or oral meds, give 15 gram carbohydrate if meal or snack due in more than an hour. Serve meal or snack if due in less than 1 hour. See hypoglycemia treatment on cardex., dextrose chewable tablet 16 g 16 g (4 tablet), Oral, PRN per parameter, Starting Mon02/01/19 at 1527, Until Discontinued, low blood glucose, Chew before swallowing. Give 15 gram of carbohydrate if blood glucose is less than 70 mg/dL, patient is responsive and able to take food or oral meds. Recheck blood glucose in 15 minutes. Repeat 15 gram carbohydrate if recheck is less than 70 mg/dL and call MD. If recheck is greater than 70 mg/dL and able to take food or oral meds, give 15 gram carbohydrate if meal or snack due in more than an hour. Serve meal or snack if due in less than 1 hour. See hypoglycemia treatment on cardex. (Sources of 15 gram carbohydrate: 4 oz fruit juice or 4 oz soda pop (NOT diet) or 1 tablespoonful honey or 4 glucose tablets )., glucagon for injection 1 mg vial 1 mg 1 mg, Intramuscular, PRN per parameter, Starting 02/01/19 at 1527, Until Discontinued, low blood glucose, Give if blood glucose less than 70 mg/dL, patient is unresponsive or NPO, and has no IV access. Establish IV access. Recheck blood glucose in 15 minutes and call MD. If recheck is greater than 70 mg/dL and able to take food or oral meds, give 15 gram carbohydrate if meal or snack due in more than an hour. Serve meals or snack if due in less than 1 hour. See hypoglycemia treatment on cardex. Reconstitute vial with 1 mL of sterile water for injection for reconstitution for a final concentration of 1 mg/mL. Shake vial gently. Use immediately and discard unused portion. Reconstitute with 1 mL of sterile water for injection to yield 1 mg/mL. Shake vial gently. Use immediately and discard unused portion., hEParin 100 units/ mL injection for heplock FLUSH 300 Units (3 mL), IV, Two times a day and prn, First dose on Mon02/05/19 at 1700 , Until Discontinued, 3 mL, Flush lumen with 10 mL sodium chloride 0.9% followed by heparin 300 units (100 units/mL) twice daily at 7082-2836 and after each use, HYDROcodone-acetaminophen (NORCO) 5-325 mg tablet 1 tablet 1 tablet, Oral, Every four hours prn, Starting 02/02/19 at 1025, Until Discontinued, other (Specify), see admin instructions, PACU - Continue Post-Op , Give 1 tablet FIRST for pain Scale 4 to 6; if pain unrelieved by 1 tablet for pain score 4-6, do NOT give another tablet, but instead assess if IV medication order is present for pain unrelieved by oral medication. Recommended maximum (adults) of 4,000 milligrams of acetaminophen per day (from all sources/products)., HYDROcodone-acetaminophen (NORCO) 5-325 mg tablet 2 tablet 2 tablet, Oral, Every four hours prn, Starting 02/02/19 at 1025, Until Discontinued, other (Specify), see admin instructions, PACU - Continue Post-Op , Give 2 tablets FIRST for pain Scale 7 or greater; if 2 oral tablets fail for pain score 7 or greater, assess if IV medication order is present for pain unrelieved by oral medication. Recommended maximum (adults) of 4,000 milligrams of acetaminophen per day (from all sources/products)., insulin aspart (NovoLOG) SQ correction Given 02/05/2019 11:56 AM CDT 5 Units scale (Adult) 3-16 Units, Subcutaneous, Three times a day with meals, First dose on Mon02/05/19 at 0735, Until Discontinued, 0.16 mL, Patient is eating HIGH DOSE insulin aspart (NovoLOG) Subcutaneous Correction Scale: Premeal Blood Glucose=Insulin Dose 150-199 3 units 200-249 5 units 250-299 9 units 300-349 13 units Over 349 16 units, Given 02/05/2019 7:33 AM CDT 5 Units insulin glargine (LANTUS) SQ injection Given 02/05/2019 8:47 AM CDT 5 Units 5 Units, Subcutaneous, DAILY, First dose on Mon02/04/19 at 0900, Until Discontinued, 0.05 mL, Do not hold. Call provider if blood glucose less than 100 mg/dl, if patient changed to NPO or if tube feedings stopped., Given 02/04/2019 10:16 AM CDT 5 Units labetalol (NORMODYNE;TRANDATE) IV solution 20 Given 02/03/2019 12:38 AM CDT 20 mg mg 20 mg, IV, Every ten minutes prn, Starting 02/02/19 at 0137, Until Discontinued, blood pressure, SBP> 180, 20 mL Given 02/02/2019 5:46 AM CDT 20 mg Given 02/02/2019 4:34 AM CDT 20 mg metoclopramide (REGLAN) inj soln 5 mg 5 mg, IV, Every six hours prn, Starting 02/01/19 at 1407, Until Discontinued , nausea, vomiting, 2 mL, Use SECOND. If ineffective and ondansetron used, call physician for alternative If preference is to further dilute for IV administration: First draw up patient-specific dose, then dilute to 10 mL with 0.9% sodium chloride., propranolol (INDERAL LA) extended release Given 02/05/2019 8:47 AM CDT 120 mg capsule 120 mg 120 mg, Oral, Two times a day, First dose on Mon02/01/19 at 2100, Until Discontinued, Swallow capsule whole. Do not crush, chew or open. Hold for SBP less than 100 Hold for HR less than 60, Given 02/04/2019 9:40 PM CDT 120 mg Given 02/04/2019 8:22 AM CDT 120 mg senna-docusate sodium Given 02/02/2019 8:56 PM CDT 1 tablet (SENOKOT-S;PERICOLACE) tablet 1 tablet 1 tablet, Oral, Two times a day, First dose on Mon02/02/19 at 2100, Until Discontinued, Post - Op, Hold if 2 loose stools occur in the last 24 hours., sodium chloride 0.9% flush (adult) 10 mL Given 02/05/2019 8:49 AM CDT 10 mL 10 mL, IV, Two times a day and prn, First dose on Mon02/01/19 at 2100, Until Discontinued, 10 mL, Flush IV line as scheduled and as often as necessary before and after meds., Given 02/04/2019 9:40 PM CDT 10 mL Given 02/04/2019 8:22 AM CDT 10 mL sodium chloride 0.9% prefilled 10 mL syringe (Materials Management Item) 10 mL 10 mL, IV, Two times a day and prn, First dose on Mon02/05/19 at 1700, Until Discontinued, 10 mL, Flush lumen with 10 mL sodium chloride 0.9% followed by heparin 300 units (100 units/mL) twice daily at 2611-0392 and after each use, Medication Order MAR Action Action Date Dose Rate Site amLODIPine (NORVASC) tablet 5 mg Given 02/02/2019 12:34 PM CDT 5 mg 5 mg, Oral, Daily, First dose on Mon02/02/19 at 1130, Until Discontinued, Hold for SBP less than 100, ceFAZolin (ANCEF) 1000 mg/10 mL sterile Given 02/04/2019 2:21 AM CDT 1,000 mg water IV syringe 1,000 mg, IV, Every twelve hours, First dose on Mon02/02/19 at 1430, Until Discontinued, 10 mL, Administer over 3 minutes., Given 02/03/2019 2:46 PM CDT 1,000 mg Given 02/03/2019 3:20 AM CDT 1,000 mg ceFAZolin (ANCEF) 2000 mg/20 mL sterile Given 02/02/2019 2:35 AM CDT 2,000 mg water IV syringe 2,000 mg, IV, Every eight hours, First dose on Mon02/01/19 at 1800, Until Discontinued, 20 mL, Administer as IV push over 4 minutes., Given 02/01/2019 6:52 PM CDT 2,000 mg insulin aspart (NovoLOG) SQ correction Given 02/03/2019 6:31 AM CDT 2 Units scale (Adult) 2-8 Units, Subcutaneous, Three times a day with meals, First dose on Mon02/01/19 at 1730, Until Discontinued, 0.08 mL, Patient is eating LOW DOSE insulin aspart (NovoLOG) subcutaneous correction scale Premeal Blood Glucose=Insulin Dose 150-199 2 units 200-249 3 units 250-299 5 units 300-349 7 units Over 349 8 units, Given 02/02/2019 5:40 PM CDT 2 Units Given 02/02/2019 5:43 AM CDT 2 Units insulin aspart (NovoLOG) SQ correction Given 02/04/2019 6:53 PM CDT 2 Units scale (Adult) 2-12 Units, Subcutaneous, Three times a day with meals, First dose on Mon02/03/19 at 1130, Until Discontinued, 0.12 mL, Patient is eating MEDIUM DOSE insulin aspart (NovoLOG) subcutaneous correction scale Premeal Blood Glucose=Insulin Dose 150-199 2 units 200-249 4 units 250-299 7 units 300-349 10 units Over 349 12 units, Given 02/04/2019 11:21 AM CDT 4 Units Given 02/04/2019 6:34 AM CDT 4 Units magnesium sulfate 2 gm/50 mL IV solution 2 g Given 02/03/2019 12:18 PM CDT 2 g 2 g, IV, One time, 1 dose, 02/03/19 at 0915, 50 mL magnesium sulfate IV replacement Given 02/05/2019 10:26 AM CDT 4 g 25 mL/ hr (premix) 4 g 4 g, IV, at 25 mL/hr, One time, 1 dose, [facility] 02/05/19 at 1020, 100 mL potassium & sodium phosphates (PHOS-NaK) Given 02/04/2019 9:39 PM CDT 1 packet 280-160-250 MG packet 1 packet 1 packet, Oral, Two times a day, 4 doses, First dose on 02/03/19 at 0900, Last dose on Mon02/04/19 at 2100, Contents of packet should be dissolved in 75 ml water. Stir well and take promptly., Given 02/04/2019 8:22 AM CDT 1 packet Given 02/03/2019 8:09 PM CDT 1 packet potassium chloride (KLOR-CON M20) CR tablet Given 02/03/2019 6:31 AM CDT 40 mEq 40 mEq 40 mEq, Oral, One time, 1 dose, 02/03/19 at 0720, Tablet may be broken in half, but should not be crushed or chewed. Tablet may be dissolved in 4 oz of water., potassium chloride (KLOR-CON M20) CR tablet Given 02/04/2019 6:53 PM CDT 40 mEq 40 mEq 40 mEq, Oral, One time, 1 dose, Mon02/04/19 at 1735, Tablet may be broken in half, but should not be crushed or chewed. Tablet may be dissolved in 4 oz of water., potassium chloride 40 mEq, lidocaine 20 mg Given 02/03/2019 7:53 AM CDT 40 mEq in dextrose 5% 500 mL 40 mEq, IV, One time, 1 dose, [place] 02/03/19 at 0720, 500 mL, Infuse at 10 mEq per hour. May increase to 20 mEq per hour if patient is on telemetry., sodium chloride 0.9% IV solution New Bag 02/02/2019 2:38 AM CDT 100 mL/hr IV, at 100 mL/hr, Continuous, Starting 02/01/19 at 1410, Until 02/02/19 at 1048, 1,000 mL New Bag/Tubing 02/01/2019 5:13 PM CDT 100 mL/hr sodium chloride 0.9% IV solution New Bag 02/03/2019 6:40 AM CDT 75 mL/hr IV, at 75 mL/hr, Continuous, Starting 02/02/19 at 1130, Until 02/03/19 at 0945, 1,000 mL, Post - Op New Bag 02/02/2019 1:27 PM CDT 75 mL/hr Rate Change 02/02/2019 12:37 PM CDT 75 mL/hr documented in this encounter
[2019-02-06] MEDS: metFORMIN 500 MG Tab PO SCH (17:44)
[2019-02-06] MEDS: ceFAZolin 1 GM Vial IVPUSH SCH (19:45)
[2019-02-07] MEDS: Insulin Lispro 100 Units/ML 3 ML Vial SUBCUT SCH ×4 (08:31→19:46)
[2019-02-07] MEDS: amLODIPine 5 MG Tab PO SCH (08:35)
[2019-02-07] MEDS: Cholecalciferol (Vitamin D3) 25 MCG Tab PO SCH (08:35)
[2019-02-07] MEDS: metFORMIN 500 MG Tab PO SCH ×2 (08:36→17:11)
[2019-02-07] MEDS: Propranolol 60 MG Cap.ER PO SCH ×2 (08:36→17:11)
[2019-02-07] MEDS: Gemfibrozil 600 MG Tab PO SCH (08:36)
[2019-02-07] MEDS: Multivitamin Tab PO SCH (08:37)
[2019-02-07] MEDS: ceFAZolin 1 GM Vial IVPUSH SCH ×2 (08:38→19:49)
[2019-02-07] MEDS: Sodium Chloride 0.9% 10 ML Syringe IV SCH ×2 (08:38→19:51)
[2019-02-08] MEDS: ceFAZolin 1 GM Vial IVPUSH SCH ×2 (09:24→19:35)
[2019-02-08] MEDS: Sodium Chloride 0.9% 10 ML Syringe IV SCH ×2 (09:24→19:35)
[2019-02-08] MEDS: Multivitamin Tab PO SCH (09:25)
[2019-02-08] MEDS: Cholecalciferol (Vitamin D3) 25 MCG Tab PO SCH (09:26)
[2019-02-08] MEDS: metFORMIN 500 MG Tab PO SCH ×2 (09:26→17:32)
[2019-02-08] MEDS: Gemfibrozil 600 MG Tab PO SCH (09:26)
[2019-02-08] MEDS: Propranolol 60 MG Cap.ER PO SCH ×2 (09:27→17:32)
[2019-02-08] MEDS: amLODIPine 5 MG Tab PO SCH (09:27)
[2019-02-08] MEDS: Insulin Lispro 100 Units/ML 3 ML Vial SUBCUT SCH ×4 (09:28→19:53)
[2019-02-09] MEDS: Insulin Lispro 100 Units/ML 3 ML Vial SUBCUT SCH ×4 (07:42→21:33)
[2019-02-09] MEDS: Propranolol 60 MG Cap.ER PO SCH ×2 (07:44→17:15)
[2019-02-09] MEDS: Cholecalciferol (Vitamin D3) 25 MCG Tab PO SCH (07:44)
[2019-02-09] MEDS: metFORMIN 500 MG Tab PO SCH ×2 (07:44→17:15)
[2019-02-09] MEDS: Gemfibrozil 600 MG Tab PO SCH (07:44)
[2019-02-09] MEDS: amLODIPine 5 MG Tab PO SCH (07:44)
[2019-02-09] MEDS: Multivitamin Tab PO SCH (07:44)
[2019-02-09] MEDS: ceFAZolin 1 GM Vial IVPUSH SCH ×2 (07:45→19:00)
[2019-02-09] MEDS: Sodium Chloride 0.9% 10 ML Syringe IV SCH ×2 (07:45→19:03)
[2019-02-09] MEDS: traMADol 50 MG Tab PO PRN (10:40)
[2019-02-09] MEDS: diphenhydrAMINE 25 MG Cap PO PRN (21:47)
[2019-02-10] MEDS: Insulin Lispro 100 Units/ML 3 ML Vial SUBCUT SCH ×4 (08:33→19:16)
[2019-02-10] MEDS: Cholecalciferol (Vitamin D3) 25 MCG Tab PO SCH (08:34)
[2019-02-10] MEDS: Sodium Chloride 0.9% 10 ML Syringe IV SCH ×2 (08:34→19:16)
[2019-02-10] MEDS: ceFAZolin 1 GM Vial IVPUSH SCH ×2 (08:34→19:14)
[2019-02-10] MEDS: Gemfibrozil 600 MG Tab PO SCH (08:34)
[2019-02-10] MEDS: Multivitamin Tab PO SCH (08:35)
[2019-02-10] MEDS: amLODIPine 5 MG Tab PO SCH (08:35)
[2019-02-10] MEDS: metFORMIN 500 MG Tab PO SCH ×2 (08:35→17:31)
[2019-02-10] MEDS: Propranolol 60 MG Cap.ER PO SCH ×2 (08:35→17:31)
[2019-02-10] MEDS: diphenhydrAMINE 25 MG Cap PO PRN (19:48)
[2019-02-11] MEDS: traMADol 50 MG Tab PO PRN (04:49)
[2019-02-11] MEDS: Propranolol 60 MG Cap.ER PO SCH ×2 (07:30→17:50)
[2019-02-11] MEDS: amLODIPine 5 MG Tab PO SCH (07:31)
[2019-02-11] MEDS: Multivitamin Tab PO SCH (07:32)
[2019-02-11] MEDS: Cholecalciferol (Vitamin D3) 25 MCG Tab PO SCH (07:32)
[2019-02-11] MEDS: metFORMIN 500 MG Tab PO SCH ×2 (07:32→17:56)
[2019-02-11] MEDS: Sodium Chloride 0.9% 10 ML Syringe IV SCH (07:33)
[2019-02-11] MEDS: Gemfibrozil 600 MG Tab PO SCH (07:33)
[2019-02-11] MEDS: ceFAZolin 1 GM Vial IVPUSH SCH ×2 (07:33→20:59)
[2019-02-11] MEDS: Insulin Lispro 100 Units/ML 3 ML Vial SUBCUT SCH ×4 (07:34→21:18)
[2019-02-11 07:47] LABS: CHLORIDE,CL 103 mmol/L (98-107); SODIUM,NA 140 mmol/L (136-145)
--- NOTE | 2019-02-11 13:26 | PCM.SN ---
- Free Text/Narrative Note: Patient got finger dressing caught on another finger and managed to pull the entire dressing off. Tip of affected finger noted to be necrotic and dangling from small piece of remaining tissue. Sterilized surgical scissors used to clip off the necrotic tip from the rest of the digit. Proximally, finger appears to be healing well. No drainage. Packing left in place. Finger cleansed and redressed with non-stick dressing and gauze by nursing staff.
[2019-02-11] MEDS: Sodium Chloride 0.9% 10 ML Syringe FLUSH SCH ×2 (21:00→21:01)
[2019-02-12] MEDS: metFORMIN 500 MG Tab PO SCH ×2 (07:50→17:31)
[2019-02-12] MEDS: Propranolol 60 MG Cap.ER PO SCH ×2 (07:51→17:32)
[2019-02-12] MEDS: amLODIPine 5 MG Tab PO SCH (07:52)
[2019-02-12] MEDS: Gemfibrozil 600 MG Tab PO SCH (07:52)
[2019-02-12] MEDS: Cholecalciferol (Vitamin D3) 25 MCG Tab PO SCH (07:53)
[2019-02-12] MEDS: Insulin Lispro 100 Units/ML 3 ML Vial SUBCUT SCH ×4 (07:53→19:49)
[2019-02-12] MEDS: Multivitamin Tab PO SCH (07:53)
[2019-02-12] MEDS: ceFAZolin 1 GM Vial IVPUSH SCH ×2 (08:02→19:39)
[2019-02-12] MEDS: Sodium Chloride 0.9% 10 ML Syringe FLUSH SCH ×4 (08:03→19:43)
[2019-02-12] MEDS: Sodium Chloride 0.9% 10 ML Syringe FLUSH PRN (13:18)
[2019-02-12] MEDS: traMADol 50 MG Tab PO PRN (20:40)
[2019-02-13] MEDS: ceFAZolin 1 GM Vial IVPUSH SCH ×2 (08:03→19:22)
[2019-02-13] MEDS: Sodium Chloride 0.9% 10 ML Syringe FLUSH SCH ×4 (08:05→19:23)
[2019-02-13] MEDS: metFORMIN 500 MG Tab PO SCH ×2 (08:05→17:22)
[2019-02-13] MEDS: Insulin Lispro 100 Units/ML 3 ML Vial SUBCUT SCH ×4 (08:06→19:31)
[2019-02-13] MEDS: Propranolol 60 MG Cap.ER PO SCH ×2 (08:08→17:23)
[2019-02-13] MEDS: Gemfibrozil 600 MG Tab PO SCH (08:09)
[2019-02-13] MEDS: amLODIPine 5 MG Tab PO SCH (08:09)
[2019-02-13] MEDS: Multivitamin Tab PO SCH (08:10)
[2019-02-13] MEDS: Cholecalciferol (Vitamin D3) 25 MCG Tab PO SCH (08:10)
[2019-02-13] MEDS: traMADol 50 MG Tab PO PRN (21:36)
[2019-02-14] MEDS: ceFAZolin 1 GM Vial IVPUSH SCH ×2 (08:04→19:44)
[2019-02-14] MEDS: Propranolol 60 MG Cap.ER PO SCH ×2 (08:07→17:18)
[2019-02-14] MEDS: Multivitamin Tab PO SCH (08:07)
[2019-02-14] MEDS: Cholecalciferol (Vitamin D3) 25 MCG Tab PO SCH (08:07)
[2019-02-14] MEDS: amLODIPine 5 MG Tab PO SCH (08:08)
[2019-02-14] MEDS: Gemfibrozil 600 MG Tab PO SCH (08:08)
[2019-02-14] MEDS: Insulin Lispro 100 Units/ML 3 ML Vial SUBCUT SCH ×4 (08:08→19:51)
[2019-02-14] MEDS: metFORMIN 500 MG Tab PO SCH ×2 (08:08→17:18)
[2019-02-14] MEDS: Sodium Chloride 0.9% 10 ML Syringe FLUSH SCH ×4 (08:10→20:15)
[2019-02-14] MEDS ORDERED: Insulin Glarg,Human.Rec.Analog 100 UNIT/ML ML SUBCUT SCH (20:00)
[2019-02-15] MEDS: metFORMIN 500 MG Tab PO SCH ×2 (07:29→17:20)
[2019-02-15] MEDS: amLODIPine 5 MG Tab PO SCH (07:29)
[2019-02-15] MEDS: Propranolol 60 MG Cap.ER PO SCH ×2 (07:29→17:19)
[2019-02-15] MEDS: Sodium Chloride 0.9% 10 ML Syringe FLUSH SCH ×4 (07:29→19:46)
[2019-02-15] MEDS: Gemfibrozil 600 MG Tab PO SCH (07:29)
[2019-02-15] MEDS: Insulin Lispro 100 Units/ML 3 ML Vial SUBCUT SCH ×3 (07:30→17:18)
[2019-02-15] MEDS: ceFAZolin 1 GM Vial IVPUSH SCH ×2 (07:30→19:43)
[2019-02-15] MEDS: Cholecalciferol (Vitamin D3) 25 MCG Tab PO SCH (07:32)
[2019-02-15] MEDS: Multivitamin Tab PO SCH (07:32)
[2019-02-15] MEDS ORDERED: Insulin Lispro 100 Units/ML 3 ML Vial SUBCUT SCH (17:30)
[2019-02-15] MEDS: traMADol 50 MG Tab PO PRN (19:40)
[2019-02-15] MEDS: Insulin Glarg,Human.Rec.Analog 100 UNIT/ML ML SUBCUT SCH (19:41)
[2019-02-15] MEDS ORDERED: Insulin Glarg,Human.Rec.Analog 100 UNIT/ML ML SUBCUT SCH (20:00)
[2019-02-16] MEDS: Insulin Lispro 100 Units/ML 3 ML Vial SUBCUT SCH ×2 (07:51→17:15)
[2019-02-16] MEDS: ceFAZolin 1 GM Vial IVPUSH SCH ×2 (07:55→19:44)
[2019-02-16] MEDS: Sodium Chloride 0.9% 10 ML Syringe FLUSH SCH ×4 (08:00→19:46)
[2019-02-16] MEDS: Propranolol 60 MG Cap.ER PO SCH ×2 (08:10→17:20)
[2019-02-16] MEDS: metFORMIN 500 MG Tab PO SCH ×2 (08:10→17:17)
[2019-02-16] MEDS: Gemfibrozil 600 MG Tab PO SCH (08:12)
[2019-02-16] MEDS: Multivitamin Tab PO SCH (08:13)
[2019-02-16] MEDS: amLODIPine 5 MG Tab PO SCH (08:13)
[2019-02-16] MEDS: Cholecalciferol (Vitamin D3) 25 MCG Tab PO SCH (08:14)
[2019-02-16] MEDS: Insulin Glarg,Human.Rec.Analog 100 UNIT/ML ML SUBCUT SCH (19:43)
[2019-02-16] MEDS: traMADol 50 MG Tab PO PRN (21:06)
[2019-02-17] MEDS: ceFAZolin 1 GM Vial IVPUSH SCH ×2 (07:47→19:36)
[2019-02-17] MEDS: Sodium Chloride 0.9% 10 ML Syringe FLUSH SCH ×4 (07:47→19:39)
[2019-02-17] MEDS: Insulin Lispro 100 Units/ML 3 ML Vial SUBCUT SCH ×2 (08:01→17:17)
[2019-02-17] MEDS: metFORMIN 500 MG Tab PO SCH ×2 (08:02→17:16)
[2019-02-17] MEDS: Propranolol 60 MG Cap.ER PO SCH ×2 (08:02→17:17)
[2019-02-17] MEDS: amLODIPine 5 MG Tab PO SCH (08:03)
[2019-02-17] MEDS: Gemfibrozil 600 MG Tab PO SCH (08:03)
[2019-02-17] MEDS: Cholecalciferol (Vitamin D3) 25 MCG Tab PO SCH (08:04)
[2019-02-17] MEDS: Multivitamin Tab PO SCH (08:04)
[2019-02-17] MEDS: Insulin Glarg,Human.Rec.Analog 100 UNIT/ML ML SUBCUT SCH (19:33)
[2019-02-17] MEDS: traMADol 50 MG Tab PO PRN (20:52)
[2019-02-18] MEDS: Sodium Chloride 0.9% 10 ML Syringe FLUSH PRN (06:50)
[2019-02-18] MEDS: ceFAZolin 1 GM Vial IVPUSH SCH ×2 (07:06→19:17)
[2019-02-18] MEDS: Sodium Chloride 0.9% 10 ML Syringe FLUSH SCH ×4 (07:07→19:18)
[2019-02-18] MEDS: Insulin Lispro 100 Units/ML 3 ML Vial SUBCUT SCH (07:07)
[2019-02-18] MEDS: Propranolol 60 MG Cap.ER PO SCH ×2 (07:08→17:17)
[2019-02-18] MEDS: metFORMIN 500 MG Tab PO SCH ×2 (07:08→17:17)
[2019-02-18] MEDS: amLODIPine 5 MG Tab PO SCH (07:09)
[2019-02-18] MEDS: Gemfibrozil 600 MG Tab PO SCH (07:09)
[2019-02-18] MEDS: Multivitamin Tab PO SCH (07:10)
[2019-02-18] MEDS: Cholecalciferol (Vitamin D3) 25 MCG Tab PO SCH (07:10)
[2019-02-18 08:24] LABS: CHLORIDE,CL 104 mmol/L (98-107); SODIUM,NA 141 mmol/L (136-145)
[2019-02-18] MEDS: Insulin Glarg,Human.Rec.Analog 100 UNIT/ML ML SUBCUT SCH (19:18)
[2019-02-19] MEDS: traMADol 50 MG Tab PO PRN (00:34)
[2019-02-19] MEDS: ceFAZolin 1 GM Vial IVPUSH SCH ×2 (07:46→19:29)
[2019-02-19] MEDS: metFORMIN 500 MG Tab PO SCH ×2 (07:47→17:16)
[2019-02-19] MEDS: Sodium Chloride 0.9% 10 ML Syringe FLUSH SCH ×4 (07:47→19:35)
[2019-02-19] MEDS: Propranolol 60 MG Cap.ER PO SCH ×2 (07:48→17:16)
[2019-02-19] MEDS: Insulin Lispro 100 Units/ML 3 ML Vial SUBCUT SCH (07:48)
[2019-02-19] MEDS: amLODIPine 5 MG Tab PO SCH (07:49)
[2019-02-19] MEDS: Gemfibrozil 600 MG Tab PO SCH (07:49)
[2019-02-19] MEDS: Multivitamin Tab PO SCH (07:50)
[2019-02-19] MEDS: Cholecalciferol (Vitamin D3) 25 MCG Tab PO SCH (07:50)
[2019-02-19] MEDS: Sodium Chloride 0.9% 10 ML Syringe FLUSH PRN (11:20)
[2019-02-19] MEDS: Insulin Glarg,Human.Rec.Analog 100 UNIT/ML ML SUBCUT SCH (19:30)
[2019-02-20] MEDS: Insulin Lispro 100 Units/ML 3 ML Vial SUBCUT SCH (07:21)
[2019-02-20] MEDS: ceFAZolin 1 GM Vial IVPUSH SCH ×2 (07:22→19:57)
[2019-02-20] MEDS: Propranolol 60 MG Cap.ER PO SCH ×2 (07:24→17:41)
[2019-02-20] MEDS: amLODIPine 5 MG Tab PO SCH (07:24)
[2019-02-20] MEDS: metFORMIN 500 MG Tab PO SCH ×2 (07:24→17:40)
[2019-02-20] MEDS: Gemfibrozil 600 MG Tab PO SCH (07:24)
[2019-02-20] MEDS: Sodium Chloride 0.9% 10 ML Syringe FLUSH SCH ×4 (07:26→19:58)
[2019-02-20] MEDS: Multivitamin Tab PO SCH (07:27)
[2019-02-20] MEDS: Cholecalciferol (Vitamin D3) 25 MCG Tab PO SCH (07:27)
[2019-02-20] MEDS: Insulin Glarg,Human.Rec.Analog 100 UNIT/ML ML SUBCUT SCH (19:53)
[2019-02-20] MEDS: traMADol 50 MG Tab PO PRN (20:34)
[2019-02-21] MEDS: ceFAZolin 1 GM Vial IVPUSH SCH ×2 (07:25→19:39)
[2019-02-21] MEDS: Insulin Lispro 100 Units/ML 3 ML Vial SUBCUT SCH (07:25)
[2019-02-21] MEDS: Sodium Chloride 0.9% 10 ML Syringe FLUSH SCH ×4 (07:26→19:41)
[2019-02-21] MEDS: Cholecalciferol (Vitamin D3) 25 MCG Tab PO SCH (07:27)
[2019-02-21] MEDS: Multivitamin Tab PO SCH (07:27)
[2019-02-21] MEDS: Propranolol 60 MG Cap.ER PO SCH ×2 (07:28→17:09)
[2019-02-21] MEDS: amLODIPine 5 MG Tab PO SCH (07:28)
[2019-02-21] MEDS: metFORMIN 500 MG Tab PO SCH ×2 (07:28→17:09)
[2019-02-21] MEDS: Gemfibrozil 600 MG Tab PO SCH (07:29)
[2019-02-21] MEDS: Insulin Glarg,Human.Rec.Analog 100 UNIT/ML ML SUBCUT SCH (19:37)
[2019-02-22] MEDS: ceFAZolin 1 GM Vial IVPUSH SCH ×2 (07:30→20:05)
[2019-02-22] MEDS: metFORMIN 500 MG Tab PO SCH ×2 (07:47→17:57)
[2019-02-22] MEDS: Insulin Lispro 100 Units/ML 3 ML Vial SUBCUT SCH (07:48)
[2019-02-22] MEDS: Propranolol 60 MG Cap.ER PO SCH ×2 (07:49→17:58)
[2019-02-22] MEDS: Gemfibrozil 600 MG Tab PO SCH (07:50)
[2019-02-22] MEDS: amLODIPine 5 MG Tab PO SCH (07:50)
[2019-02-22] MEDS: Multivitamin Tab PO SCH (07:56)
[2019-02-22] MEDS: Cholecalciferol (Vitamin D3) 25 MCG Tab PO SCH (07:56)
[2019-02-22] MEDS: Sodium Chloride 0.9% 10 ML Syringe FLUSH SCH ×4 (07:57→20:08)
[2019-02-22] MEDS: traMADol 50 MG Tab PO PRN (20:07)
[2019-02-22] MEDS: Insulin Glarg,Human.Rec.Analog 100 UNIT/ML ML SUBCUT SCH (20:09)
[2019-02-23] MEDS: metFORMIN 500 MG Tab PO SCH ×2 (08:15→17:44)
[2019-02-23] MEDS: Insulin Lispro 100 Units/ML 3 ML Vial SUBCUT SCH (08:16)
[2019-02-23] MEDS: Propranolol 60 MG Cap.ER PO SCH ×2 (08:17→17:46)
[2019-02-23] MEDS: Multivitamin Tab PO SCH (08:18)
[2019-02-23] MEDS: Cholecalciferol (Vitamin D3) 25 MCG Tab PO SCH (08:18)
[2019-02-23] MEDS: Gemfibrozil 600 MG Tab PO SCH (08:19)
[2019-02-23] MEDS: Sodium Chloride 0.9% 10 ML Syringe FLUSH SCH ×4 (08:19→19:49)
[2019-02-23] MEDS: ceFAZolin 1 GM Vial IVPUSH SCH ×2 (08:21→19:46)
[2019-02-23] MEDS: amLODIPine 5 MG Tab PO SCH (08:26)
[2019-02-23] MEDS: Insulin Glarg,Human.Rec.Analog 100 UNIT/ML ML SUBCUT SCH (19:44)
[2019-02-24] MEDS: metFORMIN 500 MG Tab PO SCH ×2 (07:54→17:35)
[2019-02-24] MEDS: Propranolol 60 MG Cap.ER PO SCH ×2 (07:59→17:35)
[2019-02-24] MEDS: Insulin Lispro 100 Units/ML 3 ML Vial SUBCUT SCH (07:59)
[2019-02-24] MEDS: Gemfibrozil 600 MG Tab PO SCH (08:03)
[2019-02-24] MEDS: amLODIPine 5 MG Tab PO SCH (08:04)
[2019-02-24] MEDS: Multivitamin Tab PO SCH (08:05)
[2019-02-24] MEDS: Cholecalciferol (Vitamin D3) 25 MCG Tab PO SCH (08:05)
[2019-02-24] MEDS: Sodium Chloride 0.9% 10 ML Syringe FLUSH SCH ×4 (08:20→19:45)
[2019-02-24] MEDS: ceFAZolin 1 GM Vial IVPUSH SCH ×2 (08:21→19:42)
[2019-02-24 10:55] VITALS: PULSE 80
[2019-02-24] MEDS: Insulin Glarg,Human.Rec.Analog 100 UNIT/ML ML SUBCUT SCH (19:46)
[2019-02-25 07:26] VITALS: BP 150/80
[2019-02-25] MEDS: ceFAZolin 1 GM Vial IVPUSH SCH (07:28)
[2019-02-25] MEDS: Insulin Lispro 100 Units/ML 3 ML Vial SUBCUT SCH (07:37)
[2019-02-25] MEDS: Propranolol 60 MG Cap.ER PO SCH (07:38)
[2019-02-25] MEDS: metFORMIN 500 MG Tab PO SCH (07:38)
[2019-02-25] MEDS: amLODIPine 5 MG Tab PO SCH (07:40)
[2019-02-25] MEDS: Gemfibrozil 600 MG Tab PO SCH (07:41)
[2019-02-25] MEDS: Sodium Chloride 0.9% 10 ML Syringe FLUSH SCH ×2 (07:41→07:44)
[2019-02-25] MEDS: Multivitamin Tab PO SCH (07:42)
[2019-02-25] MEDS: Cholecalciferol (Vitamin D3) 25 MCG Tab PO SCH (07:43)
[2019-02-25 08:26] LABS: CHLORIDE,CL 101 mmol/L (98-107); SODIUM,NA 138 mmol/L (136-145)
--- NOTE | 2019-02-25 17:24 | PCM.PN ---
- General Info Date of Service: 02/25/19 Admission Dx/Problem (Free Text): Admission Diagnosis/Problem Admission Diagnosis/Problem Cellulitis and abscess of finger Functional Status: Reports: Pain Controlled, Tolerating Diet - Review of Systems General: Reports: No Symptoms HEENT: Reports: No Symptoms Pulmonary: Reports: No Symptoms Cardiovascular: Reports: No Symptoms Gastrointestinal: Reports: No Symptoms Genitourinary: Reports: No Symptoms Musculoskeletal: Reports: No Symptoms Skin: Reports: No Symptoms, Other (wound right 4th finger) Neurological: Reports: Numbness (hands and feet), Pre-Existing Deficit Psychiatric: Reports: No Symptoms - Patient Data Vitals - Most Recent: Last Vital Signs Temp 98.5 F 02/25/19 07:25 Pulse 80 02/25/19 07:25 Resp 16 02/25/19 07:25 BP 150/80 H 02/25/19 07:40 Pulse Ox 96 02/25/19 07:25 Weight - Most Recent: 115 lb I&O - Last 24 Hours: Intake & Output 02/25/19 02/25/19 02/25/19 06:59 14:59 22:59 Intake Total 180 760 Balance 180 760 Lab Results Last 24 Hours: Laboratory Results - last 24 hr 02/24/19 02/25/19 02/25/19 Range/Units 17:27 07:34 07:52 WBC 9.0 (4.0-10.2) K/uL RBC 3.69 L (3.77-5.09) M/uL Hgb 11.4 L D (11.7-15.5) g/dL Hct 33.9 L (34.0-46.0) % MCV 91.9 D (84.0-98.0) fL MCH 30.9 (28.2-33.3) pg MCHC 33.6 (31.7-36.0) g/dL RDW 14.0 (11.2-14.1) % Plt Count 330 D (150-350) K/uL Neut % (Auto) 65.1 (45.0-80.0) % Lymph % (Auto) 21.6 (10.0-50.0) % [place] % (Auto) 10.0 (2.0-14.0) % Eos % (Auto) 3.0 (0.0-5.0) % Baso % (Auto) 0.3 (0.0-2.0) % Neut # (Auto) 5.88 (1.40-7.00) K/uL Lymph # (Auto) 1.95 (0.50-3.50) K/uL [place] # (Auto) 0.90 (0.00-1.00) K/uL Eos # (Auto) 0.27 (0.00-0.50) K/uL Baso # (Auto) 0.03 (0.00-0.20) K/uL ESR 112 H (0-30) mm/hr Sodium (136-145) mmol/L Potassium (3.5-5.1) mmol/L Chloride (98-107) mmol/L Carbon Dioxide (21.0-32.0) mmol/L BUN (7-18) mg/dL Creatinine (0.51-1.17) mg/dL Est Cr Clr Drug Dosing mL/min Estimated GFR (MDRD) mL/min Glucose (74-106) mg/dL POC Glucose 208 H 140 H (65-110) mg/dl Calcium (8.5-10.1) mg/dL Total Bilirubin (0.2-1.0) mg/dL AST (15-37) U/L ALT (12-78) U/L Alkaline Phosphatase (46-116) IU/L C-Reactive Protein (<=0.9) mg/dL Total Protein (6.4-8.2) g/dL Albumin (3.4-5.0) g/dL 02/25/19 Range/Units 07:52 WBC (4.0-10.2) K/uL RBC (3.77-5.09) M/uL Hgb (11.7-15.5) g/dL Hct (34.0-46.0) % MCV (84.0-98.0) fL MCH (28.2-33.3) pg MCHC (31.7-36.0) g/dL RDW (11.2-14.1) % Plt Count (150-350) K/uL Neut % (Auto) (45.0-80.0) % Lymph % (Auto) (10.0-50.0) % [place] % (Auto) (2.0-14.0) % Eos % (Auto) (0.0-5.0) % Baso % (Auto) (0.0-2.0) % Neut # (Auto) (1.40-7.00) K/uL Lymph # (Auto) (0.50-3.50) K/uL [place] # (Auto) (0.00-1.00) K/uL Eos # (Auto) (0.00-0.50) K/uL Baso # (Auto) (0.00-0.20) K/uL ESR (0-30) mm/hr Sodium 138 (136-145) mmol/L Potassium 4.2 (3.5-5.1) mmol/L Chloride 101 (98-107) mmol/L Carbon Dioxide 26.8 (21.0-32.0) mmol/L BUN 23 H (7-18) mg/dL Creatinine 0.64 (0.51-1.17) mg/dL Est Cr Clr Drug Dosing 47.84 mL/min Estimated GFR (MDRD) > 60 mL/min Glucose 142 H (74-106) mg/dL POC Glucose (65-110) mg/dl Calcium 9.9 (8.5-10.1) mg/dL Total Bilirubin 0.4 (0.2-1.0) mg/dL AST 22 (15-37) U/L ALT 9 L (12-78) U/L Alkaline Phosphatase 162 H (46-116) IU/L C-Reactive Protein 1.3 H (<=0.9) mg/dL Total Protein 7.9 (6.4-8.2) g/dL Albumin 3.1 L (3.4-5.0) g/dL Med Orders - Current: Current Medications Amlodipine Besylate (Norvasc) 10 mg PO DAILY [facility] Last Admin: 02/25/19 07:40 Dose: 10 mg Cefazolin Sodium (Ancef) 1 gm IVPUSH Q12HR [facility] Stop: 03/18/19 20:01 Last Admin: 02/25/19 07:28 Dose: 1 gm Cholecalciferol (Vitamin D3) 25 mcg PO DAILY [facility] Last Admin: 02/25/19 07:43 Dose: 25 mcg Diphenhydramine HCl (Benadryl) 25 mg PO Q6H PRN PRN Reason: Hives Last Admin: 02/10/19 19:48 Dose: 25 mg Gemfibrozil (Lopid) 600 mg PO DAILY [facility] Last Admin: 02/25/19 07:41 Dose: 600 mg Heparin Sodium (Porcine) (Heparin Lock Flush 100 Units/Ml) 300 units IVPUSH ASDIRECTED PRN PRN Reason: Keep Vein Open Heparin Sodium (Porcine) (Heparin Lock Flush 100 Units/Ml) 300 units IVPUSH Q12HR [facility] Last Admin: 02/25/19 07:39 Dose: 300 units Ibuprofen (Motrin) 600 mg PO Q6H PRN PRN Reason: Pain Insulin Glargine (Lantus) 12 unit SUBCUT BEDTIME [facility] Last Admin: 02/24/19 19:46 Dose: 12 units Insulin Human Lispro (Humalog) 0 unit SUBCUT QAM [facility]; Protocol Last Admin: 02/25/19 07:37 Dose: Not Given Metformin HCl (Glucophage) 500 mg PO BID [facility] Last Admin: 02/25/19 07:38 Dose: 500 mg Multivitamins/Minerals/Vitamin C (Tab-A-Amalia) 1 tab PO DAILY [facility] Last Admin: 02/25/19 07:42 Dose: 1 tab Propranolol HCl (Inderal La) 120 mg PO BID [facility] Last Admin: 02/25/19 07:38 Dose: 120 mg Sodium Chloride (Saline Flush) 10 ml FLUSH ASDIRECTED PRN PRN Reason: Keep Vein Open Last Admin: 02/19/19 11:20 Dose: 10 ml Sodium Chloride (Saline Flush) 10 ml FLUSH Q12HR [facility] Last Admin: 02/25/19 07:41 Dose: 10 ml Sodium Chloride (Saline Flush) 10 ml FLUSH Q12H [facility] Last Admin: 02/25/19 07:44 Dose: 10 ml Tramadol HCl (Ultram) 50 mg PO Q4H PRN PRN Reason: Pain (moderate 4-6) Last Admin: 02/22/19 20:07 Dose: 50 mg Discontinued Medications Cefazolin Sodium 1 gm/ Sodium (Chloride) 100 mls @ 400 mls/hr IV Q12H [facility] Last Admin: 02/06/19 08:35 Dose: 400 mls/hr Insulin Glargine (Lantus) 10 unit SUBCUT BEDTIME [facility] Last Admin: 02/14/19 20:12 Dose: 10 unit Insulin Glargine (Lantus) 12 unit SUBCUT BEDTIME PEG Insulin Glargine (Lantus) 14 unit SUBCUT BEDTIME PEG Last Admin: 02/17/19 19:33 Dose: 14 units Insulin Human Lispro (Humalog) 0 unit SUBCUT WITHMEALSANDBED PEG; Protocol Last Admin: 02/06/19 08:39 Dose: 5 units Insulin Human Lispro (Humalog) 0 unit SUBCUT WITHMEALSANDBED PEG; Protocol Last Admin: 02/15/19 11:25 Dose: 9 units Insulin Human Lispro (Humalog) 0 unit SUBCUT BIDAC PEG; Protocol Last Admin: 02/18/19 07:07 Dose: Not Given Non-Formulary Medication (Cefazolin [Ancef]) 1 gm IV Q12HR PEG Sodium Chloride (Saline Flush) 10 ml IV Q12HR PEG Last Admin: 02/11/19 07:33 Dose: 10 ml - Exam General: Alert, Cooperative, No Acute Distress HEENT: Mucous Membr. Moist/[place] Neck: Trachea Midline, No JVD Lungs: Clear to Auscultation, Normal Respiratory Effort Cardiovascular: Regular Rate, Regular Rhythm GI/Abdominal Exam: Soft, Non-Tender, No Distention (Female) Exam: Deferred Back Exam: Other (kyphosis) Extremities: Limited Range of Motion (ankles) Skin: Warm, Dry, Intact Wound/Incisions: Healing Well, Drainage (minimal), Erythema Improving (right 4th finger) Neurological: No New Focal Deficit Psy/Mental Status: Alert, Normal Affect, Normal Mood - Problem List & Annotations (1) Cellulitis and abscess of hand SNOMED Code(s): 062859619, 525529576 Code(s): L03.119 - CELLULITIS OF UNSPECIFIED PART OF LIMB; L02.519 - CUTANEOUS ABSCESS OF UNSPECIFIED HAND Status: Acute Priority: High Current Visit: No Onset Date: ~01/26/19 Annotation/Comment:: R 4th finger, acute (2) Necrotizing erysipelas SNOMED Code(s): 86993022 Code(s): M72.6 - NECROTIZING FASCIITIS Status: Acute Priority: High Current Visit: No (3) Diabetes mellitus SNOMED Code(s): 30893040 Code(s): E11.9 - TYPE 2 DIABETES MELLITUS WITHOUT COMPLICATIONS Status: Chronic Priority: Medium Current Visit: No Qualifiers: Diabetes mellitus type: type 2 Diabetes mellitus complication status: with neurologic complications Diabetes mellitus complication detail: with polyneuropathy (4) HTN (hypertension) SNOMED Code(s): 68433571 Code(s): I10 - ESSENTIAL (PRIMARY) HYPERTENSION Status: Chronic Priority : Medium Current Visit: No Qualifiers: Hypertension type: essential hypertension Qualified Code(s): I10 - Essential (primary) hypertension (5) Hyperlipidemia SNOMED Code(s): 32021224 Code(s): E78.5 - HYPERLIPIDEMIA, UNSPECIFIED Status: Chronic Priority: Low Current Visit: No (6) Neuropathy SNOMED Code(s): 578483557 Code(s): G62.9 - POLYNEUROPATHY, UNSPECIFIED Status: Chronic Priority: Medium Current Visit: No (7) Charcot's joint of ankle SNOMED Code(s): 257934180 Code(s): M14.679 - CHARCOT'S JOINT, UNSPECIFIED ANKLE AND FOOT Status: Acute Priority: Medium Current Visit: No Qualifiers: Laterality: unspecified laterality Qualified Code(s): M14.679 - Charcot's joint, unspecified ankle and foot - Problem List Review Problem List Initiated/Reviewed/Updated: Yes - My Orders Last 24 Hours: My Active Orders 02/25/19 16:37 Ready for Discharge [RC] PER UNIT ROUTINE - Plan Plan:: 02-05-19 Julio Brown PA-C Patient admitted to [facility] status to continue antibiotic therapy per PICC line and to work with PT-OT with the goal of returning to her own home. She does have a PICC line in place. Follow up appointments have been scheduled back at [facility] prior to her discharge from that facility. Weekly labs will be done and faxed to ID. 02/25/19 Alonso Shelton MD She wants to go home today and come in as outpatient for the rest of her IV antibiotics. Daughter Virginia here and is in agreement. She has follow up appointment with [facility] ID on this Monday.
--- NOTE | 2019-02-25 17:28 | PCM.DCSUM1 ---
Discharge Summary - Hospital Course Diagnosis: Stroke: No - Discharge Data Discharge Date: 02/25/19 Discharge Disposition: Home, Self-Care 01 Condition: Good - Discharge Diagnosis/Problem(s) (1) Cellulitis and abscess of hand SNOMED Code(s): 305384701, 852134580 ICD Code: L03.119 - CELLULITIS OF UNSPECIFIED PART OF LIMB; L02.519 - CUTANEOUS ABSCESS OF UNSPECIFIED HAND Status: Acute Priority: High Current Visit: No Onset Date: ~01/26/19 Problem Details: R 4th finger, acute (2) Necrotizing erysipelas SNOMED Code(s): 16414714 ICD Code: M72.6 - NECROTIZING FASCIITIS Status: Acute Priority: High Current Visit: No (3) Diabetes mellitus SNOMED Code(s): 52689553 ICD Code: E11.9 - TYPE 2 DIABETES MELLITUS WITHOUT COMPLICATIONS Status: Chronic Priority: Medium Current Visit: No Qualifiers: Diabetes mellitus type: type 2 Diabetes mellitus complication status: with neurologic complications Diabetes mellitus complication detail: with polyneuropathy (4) HTN (hypertension) SNOMED Code(s): 51826560 ICD Code: I10 - ESSENTIAL (PRIMARY) HYPERTENSION Status: Chronic Priority : Medium Current Visit: No Qualifiers: Hypertension type: essential hypertension Qualified Code(s): I10 - Essential (primary) hypertension (5) Hyperlipidemia SNOMED Code(s): 81617455 ICD Code: E78.5 - HYPERLIPIDEMIA, UNSPECIFIED Status: Chronic Priority: Low Current Visit: No (6) Neuropathy SNOMED Code(s): 722030774 ICD Code: G62.9 - POLYNEUROPATHY, UNSPECIFIED Status: Chronic Priority: Medium Current Visit: No (7) Charcot's joint of ankle SNOMED Code(s): 912862113 ICD Code: M14.679 - CHARCOT'S JOINT, UNSPECIFIED ANKLE AND FOOT Status: Acute Priority: Medium Current Visit: No Qualifiers: Laterality: unspecified laterality Qualified Code(s): M14.679 - Charcot's joint, unspecified ankle and foot - Patient Summary/Data Consults: Consultations 02/05/19 16:48 Consult to Case Management/Workers Compensation Coordinator [CONS] Routine OT Evaluation and Treatment [CONS] Routine PT Evaluation and Treatment [CONS] Routine - Patient Instructions Diet: Diabetic Diet Activity: As Tolerated Driving: Do Not Drive Showering/Bathing: May Shower Wound/Incision Care: Change Dressing Daily Notify Provider of: Fever, Increased Pain, Swelling and Redness, Drainage Other/Special Instructions: Keep your appointment with the specialist on Monday. Come into hospital in [place] at 0800am and 0800pm for your antibioitics. - Discharge Plan *PRESCRIPTION DRUG MONITORING PROGRAM REVIEWED*: Not Applicable *COPY OF PRESCRIPTION DRUG MONITORING REPORT IN PATIENT JUAN MIGUEL: Not Applicable Prescriptions/Med Rec: Insulin Detemir [Levemir Flextouch] 12 unit SQ BEDTIME #5 ml Home Medications: Home Meds Cholecalciferol (Vitamin D3) [Vitamin D3] 1,000 unit PO DAILY 12/30/14 [History] Gemfibrozil 600 mg PO DAILY 12/30/14 [History] Multivitamin [Daily Multiple Vitamin] 1 tab PO DAILY 12/30/14 [History] Propranolol [Inderal LA] 120 mg PO BID 12/30/14 [History] metFORMIN [Glucophage] 1 tab PO BID 12/30/14 [History] traMADol [Ultram] 50 mg PO Q4H PRN 12/30/14 [History] Ibuprofen [Motrin] 600 mg PO Q6H PRN 02/05/19 [History] Insulin Detemir [Levemir Flextouch] 12 unit SQ BEDTIME #5 ml 02/25/19 [Rx] Oxygen Therapy Mode: Room Air - Discharge Summary/Plan Comment DC Time >30 min.: No - Patient Data Vitals - Most Recent: Last Vital Signs Temp 98.5 F 02/25/19 07:25 Pulse 80 02/25/19 07:25 Resp 16 02/25/19 07:25 BP 150/80 H 02/25/19 07:40 Pulse Ox 96 02/25/19 07:25 Weight - Most Recent: 115 lb I&O - Last 24 hours: Intake & Output 02/25/19 02/25/19 02/25/19 06:59 14:59 22:59 Intake Total 180 760 Balance 180 760 Lab Results - Last 24 hrs: Laboratory Results - last 24 hr 02/24/19 02/25/19 02/25/19 Range/Units 17:27 07:34 07:52 WBC 9.0 (4.0-10.2) K/uL RBC 3.69 L (3.77-5.09) M/uL Hgb 11.4 L D (11.7-15.5) g/dL Hct 33.9 L (34.0-46.0) % MCV 91.9 D (84.0-98.0) fL MCH 30.9 (28.2-33.3) pg MCHC 33.6 (31.7-36.0) g/dL RDW 14.0 (11.2-14.1) % Plt Count 330 D (150-350) K/uL Neut % (Auto) 65.1 (45.0-80.0) % Lymph % (Auto) 21.6 (10.0-50.0) % [place] % (Auto) 10.0 (2.0-14.0) % Eos % (Auto) 3.0 (0.0-5.0) % Baso % (Auto) 0.3 (0.0-2.0) % Neut # (Auto) 5.88 (1.40-7.00) K/uL Lymph # (Auto) 1.95 (0.50-3.50) K/uL [place] # (Auto) 0.90 (0.00-1.00) K/uL Eos # (Auto) 0.27 (0.00-0.50) K/uL Baso # (Auto) 0.03 (0.00-0.20) K/uL ESR 112 H (0-30) mm/hr Sodium (136-145) mmol/L Potassium (3.5-5.1) mmol/L Chloride (98-107) mmol/L Carbon Dioxide (21.0-32.0) mmol/L BUN (7-18) mg/dL Creatinine (0.51-1.17) mg/dL Est Cr Clr Drug Dosing mL/min Estimated GFR (MDRD) mL/min Glucose (74-106) mg/dL POC Glucose 208 H 140 H (65-110) mg/dl Calcium (8.5-10.1) mg/dL Total Bilirubin (0.2-1.0) mg/dL AST (15-37) U/L ALT (12-78) U/L Alkaline Phosphatase (46-116) IU/L C-Reactive Protein (<=0.9) mg/dL Total Protein (6.4-8.2) g/dL Albumin (3.4-5.0) g/dL 02/25/19 Range/Units 07:52 WBC (4.0-10.2) K/uL RBC (3.77-5.09) M/uL Hgb (11.7-15.5) g/dL Hct (34.0-46.0) % MCV (84.0-98.0) fL MCH (28.2-33.3) pg MCHC (31.7-36.0) g/dL RDW (11.2-14.1) % Plt Count (150-350) K/uL Neut % (Auto) (45.0-80.0) % Lymph % (Auto) (10.0-50.0) % [place] % (Auto) (2.0-14.0) % Eos % (Auto) (0.0-5.0) % Baso % (Auto) (0.0-2.0) % Neut # (Auto) (1.40-7.00) K/uL Lymph # (Auto) (0.50-3.50) K/uL [place] # (Auto) (0.00-1.00) K/uL Eos # (Auto) (0.00-0.50) K/uL Baso # (Auto) (0.00-0.20) K/uL ESR (0-30) mm/hr Sodium 138 (136-145) mmol/L Potassium 4.2 (3.5-5.1) mmol/L Chloride 101 (98-107) mmol/L Carbon Dioxide 26.8 (21.0-32.0) mmol/L BUN 23 H (7-18) mg/dL Creatinine 0.64 (0.51-1.17) mg/dL Est Cr Clr Drug Dosing 47.84 mL/min Estimated GFR (MDRD) > 60 mL/min Glucose 142 H (74-106) mg/dL POC Glucose (65-110) mg/dl Calcium 9.9 (8.5-10.1) mg/dL Total Bilirubin 0.4 (0.2-1.0) mg/dL AST 22 (15-37) U/L ALT 9 L (12-78) U/L Alkaline Phosphatase 162 H (46-116) IU/L C-Reactive Protein 1.3 H (<=0.9) mg/dL Total Protein 7.9 (6.4-8.2) g/dL Albumin 3.1 L (3.4-5.0) g/dL Med Orders - Current: Current Medications Amlodipine Besylate (Norvasc) 10 mg PO DAILY [facility] Last Admin: 02/25/19 07:40 Dose: 10 mg Cefazolin Sodium (Ancef) 1 gm IVPUSH Q12HR [facility] Stop: 03/18/19 20:01 Last Admin: 02/25/19 07:28 Dose: 1 gm Cholecalciferol (Vitamin D3) 25 mcg PO DAILY [facility] Last Admin: 02/25/19 07:43 Dose: 25 mcg Diphenhydramine HCl (Benadryl) 25 mg PO Q6H PRN PRN Reason: Hives Last Admin: 02/10/19 19:48 Dose: 25 mg Gemfibrozil (Lopid) 600 mg PO DAILY [facility] Last Admin: 02/25/19 07:41 Dose: 600 mg Heparin Sodium (Porcine) (Heparin Lock Flush 100 Units/Ml) 300 units IVPUSH ASDIRECTED PRN PRN Reason: Keep Vein Open Heparin Sodium (Porcine) (Heparin Lock Flush 100 Units/Ml) 300 units IVPUSH Q12HR [facility] Last Admin: 02/25/19 07:39 Dose: 300 units Ibuprofen (Motrin) 600 mg PO Q6H PRN PRN Reason: Pain Insulin Glargine (Lantus) 12 unit SUBCUT BEDTIME [facility] Last Admin: 02/24/19 19:46 Dose: 12 units Insulin Human Lispro (Humalog) 0 unit SUBCUT QAM [facility]; Protocol Last Admin: 02/25/19 07:37 Dose: Not Given Metformin HCl (Glucophage) 500 mg PO BID [facility] Last Admin: 02/25/19 07:38 Dose: 500 mg Multivitamins/Minerals/Vitamin C (Tab-A-Amalia) 1 tab PO DAILY [facility] Last Admin: 02/25/19 07:42 Dose: 1 tab Propranolol HCl (Inderal La) 120 mg PO BID [facility] Last Admin: 02/25/19 07:38 Dose: 120 mg Sodium Chloride (Saline Flush) 10 ml FLUSH ASDIRECTED PRN PRN Reason: Keep Vein Open Last Admin: 02/19/19 11:20 Dose: 10 ml Sodium Chloride (Saline Flush) 10 ml FLUSH Q12HR PEG Last Admin: 02/25/19 07:41 Dose: 10 ml Sodium Chloride (Saline Flush) 10 ml FLUSH Q12H PEG Last Admin: 02/25/19 07:44 Dose: 10 ml Tramadol HCl (Ultram) 50 mg PO Q4H PRN PRN Reason: Pain (moderate 4-6) Last Admin: 02/22/19 20:07 Dose: 50 mg Discontinued Medications Cefazolin Sodium 1 gm/ Sodium (Chloride) 100 mls @ 400 mls/hr IV Q12H PEG Last Admin: 02/06/19 08:35 Dose: 400 mls/hr Insulin Glargine (Lantus) 10 unit SUBCUT BEDTIME PEG Last Admin: 02/14/19 20:12 Dose: 10 unit Insulin Glargine (Lantus) 12 unit SUBCUT BEDTIME PEG Insulin Glargine (Lantus) 14 unit SUBCUT BEDTIME PEG Last Admin: 02/17/19 19:33 Dose: 14 units Insulin Human Lispro (Humalog) 0 unit SUBCUT WITHMEALSANDBED PEG; Protocol Last Admin: 02/06/19 08:39 Dose: 5 units Insulin Human Lispro (Humalog) 0 unit SUBCUT WITHMEALSANDBED PEG; Protocol Last Admin: 02/15/19 11:25 Dose: 9 units Insulin Human Lispro (Humalog) 0 unit SUBCUT BIDAC PEG; Protocol Last Admin: 02/18/19 07:07 Dose: Not Given Non-Formulary Medication (Cefazolin [Ancef]) 1 gm IV Q12HR PEG Sodium Chloride (Saline Flush) 10 ml IV Q12HR PEG Last Admin: 02/11/19 07:33 Dose: 10 ml
== END 2019-02-25 17:25 | disposition home or self-care (01) | DRG 602 ==
LOC: LL.MS 15:38 → LL.SWG 02-11 15:58
PROVIDERS: ADMIT Physician Assistant; ATTEND Family Medicine
DX: L03.011 Cellulitis of right finger (principal); M72.6 Necrotizing fasciitis; H54.7 Unspecified visual loss; I10 Essential (primary) hypertension; M10.9 Gout, unspecified; E11.42 Type 2 diabetes mellitus with diabetic polyneuropathy; E78.5 Hyperlipidemia, unspecified; M14.679 Charcot's joint, unspecified ankle and foot; Z79.4 Long term (current) use of insulin; Z79.899 Other long term (current) drug therapy
CPT/HCPCS: 36415; 80053; 82962; 85025; 85652; 86140; 97110-GO; 97110-GP; 97112-GP; 97116-GP; 97162-GP; 97165-GO; 97530-GO; 97530-GP; 97535-GO; A9270-GY; G0515-GO; J0690; J1642; J1815; J1815-GY; J7050

== ENCOUNTER → 2019-06-04 | Outpatient (CLI) | payer MEDICARE, BC | LOC: LL.DI 10:45 | PROVIDERS: ATTEND Family Medicine | DX: T14.8XXA Other injury of unspecified body region, initial encounter (principal); M79.89 Other specified soft tissue disorders; M21.241 Flexion deformity, right finger joints | CPT/HCPCS: 73140-F8 ==

== ENCOUNTER 2022-04-03 16:26 | Emergency (ER) | payer MEDICARE, BC ==
[2022-04-03] MEDS ORDERED: hydrALAZINE 20 MG/ML SDV IVPUSH ONE ×2 (16:39→17:12)
[2022-04-03] MEDS: Sodium Chloride 0.9% 10 ML Syringe FLUSH PRN ×2 (16:42→21:39)
[2022-04-03 17:30] LABS: ANION GAP 9.8 meq/L (7-15); CHLORIDE,CL 102 mmol/L (98-107); SODIUM,NA 139 mmol/L (136-145)
[2022-04-03] MEDS ORDERED: Sodium Chloride 0.9% 1,000 ML IV SCH (17:30)
[2022-04-03 17:31] LABS: ESTIMATED GFR 30 mL/min (>=60)
[2022-04-03] MEDS ORDERED: Magnesium Sulfate/Water 2 GM in Premix Bag 1 BAG IV ONE (17:42)
[2022-04-03] MEDS ORDERED: cloNIDine 0.1 MG Tab PO ONE (19:36)
[2022-04-03 21:04] VITALS: BP 135/66; PULSE 63
== END 2022-04-03 21:37 | disposition home or self-care (01) ==
LOC: LL.ED 16:26
DX: I16.0 Hypertensive urgency (principal); I10 Essential (primary) hypertension; E11.9 Type 2 diabetes mellitus without complications; Z79.899 Other long term (current) drug therapy; Z79.84 Long term (current) use of oral hypoglycemic drugs; Z90.49 Acquired absence of other specified parts of digestive tract
CPT/HCPCS: 36415; 80053; 81001; 83605; 83735; 84443; 85025; 86140; 93005; 93010; 96361; 96365; 96366; 96375; 96376; 99284; 99285-25; A9270-GY; J0360; J3475; J3490; J7030

== ENCOUNTER 2022-04-06 11:58 | Emergency (ER) | payer MEDICARE, BC ==
[2022-04-06 12:30] VITALS: PULSE 66
[2022-04-06 13:32] LABS: ANION GAP 6.8 meq/L (7-15); CHLORIDE,CL 103 mmol/L (98-107); SODIUM,NA 138 mmol/L (136-145)
[2022-04-06 13:33] LABS: ESTIMATED GFR 35 mL/min (>=60)
[2022-04-06] MEDS: cloNIDine 0.1 MG Tab PO ONE (13:34)
[2022-04-06 13:35] VITALS: BP 149/87
[2022-04-06] MEDS: hydrALAZINE 20 MG/ML SDV IVPUSH ONE (13:35)
== END 2022-04-06 14:55 | disposition home or self-care (01) ==
LOC: LL.ED 11:58
DX: I16.0 Hypertensive urgency (principal); I10 Essential (primary) hypertension; E78.00 Pure hypercholesterolemia, unspecified; E11.9 Type 2 diabetes mellitus without complications; Z79.84 Long term (current) use of oral hypoglycemic drugs; Z79.899 Other long term (current) drug therapy
CPT/HCPCS: 36415; 80053; 81001; 83735; 85025; 99283; 99284; A9270-GY

== ENCOUNTER 2022-05-12 09:00 | Inpatient (IN) | payer MEDICARE, BC ==
[2022-05-12] MEDS ORDERED: Albuterol/Ipratropium 3.0-0.5 MG/3 ML Neb Soln ONE ×2 (09:23→20:00)
[2022-05-12] MEDS ORDERED: cefTRIAXone 1 GM Vial ONE (12:30)
[2022-05-12] MEDS ORDERED: Azithromycin 250 MG Tab ONE (12:30)
[2022-05-12] MEDS ORDERED: Furosemide 20 MG/2 ML VIAL ONE (12:30)
[2022-05-12] MEDS ORDERED: Insulin Glarg,Human.Rec.Analog 100 Unit/ML ONE (18:00)
[2022-05-12] MEDS ORDERED: Insulin Lispro 100 Units/ML 3 ML Vial ONE (18:45)
[2022-05-12] MEDS ORDERED: Propranolol 60 MG Cap.ER ONE (20:00)
[2022-05-12] MEDS ORDERED: Sodium Chloride 0.9% 10 ML Syringe ONE (20:00)
[2022-05-12] MEDS ORDERED: Donepezil 5 MG Tab ONE (20:00)
[2022-05-13] MEDS ORDERED: Albuterol/Ipratropium 3.0-0.5 MG/3 ML Neb Soln ONE (08:00)
[2022-05-13] MEDS ORDERED: Azithromycin 250 MG Tab ONE (08:00)
[2022-05-13] MEDS ORDERED: amLODIPine 5 MG Tab ONE (08:00)
[2022-05-13] MEDS ORDERED: Sodium Chloride 0.9% 10 ML Syringe ONE (08:00)
[2022-05-13] MEDS ORDERED: Propranolol 60 MG Cap.ER ONE ×2 (08:00→20:00)
[2022-05-13] MEDS ORDERED: Furosemide 20 MG/2 ML VIAL ONE (08:00)
[2022-05-13] MEDS ORDERED: cefTRIAXone 1 GM in Sodium Chloride 0.9% 100 ML IV ONE (12:35)
[2022-05-13] MEDS ORDERED: traMADol 50 MG Tab ONE (20:00)
[2022-05-13] MEDS ORDERED: Donepezil 5 MG Tab ONE (20:00)
[2022-05-14] MEDS ORDERED: Furosemide 20 MG/2 ML VIAL ONE (08:00)
[2022-05-14] MEDS ORDERED: amLODIPine 5 MG Tab ONE (08:00)
[2022-05-14] MEDS ORDERED: Azithromycin 250 MG Tab ONE (08:00)
[2022-05-14] MEDS ORDERED: Propranolol 60 MG Cap.ER ONE (08:00)
[2022-05-14] MEDS ORDERED: Sodium Chloride 0.9% 10 ML Syringe ONE (08:00)
[2022-05-14] MEDS ORDERED: cefTRIAXone 1 GM in Sodium Chloride 0.9% 100 ML IV ONE (12:35)
[2022-06-07 08:39] LABS: ANION GAP 13.8 meq/L (7-15); CHLORIDE,CL 98 mmol/L (98-107); CORONAVIRUS COVID-19 NAA NEGATIVE (NEGATIVE); RESPIRATORY SYNCYTIAL VIR NAA NEGATIVE (NEGATIVE); SODIUM,NA 137 mmol/L (136-145)
[2022-06-07 08:40] LABS: ESTIMATED GFR 27 mL/min (>=60)
[2022-06-07 09:21] LABS: ANION GAP 9.8 meq/L (7-15); CHLORIDE,CL 101 mmol/L (98-107); SODIUM,NA 141 mmol/L (136-145)
[2022-06-07 09:22] LABS: ESTIMATED GFR 29 mL/min (>=60)
[2022-06-07 11:38] LABS: ANION GAP 13.9 meq/L (7-15); CHLORIDE,CL 98 mmol/L (98-107); ESTIMATED GFR 30 mL/min (>=60); SODIUM,NA 140 mmol/L (136-145)
== END 2022-05-14 12:15 | disposition other institution (70) | DRG 194 ==
LOC: LL.ED 09:00 → LL.ZCENSUS 11:00
PROVIDERS: ADMIT Family Medicine; ATTEND Family Medicine
DX: I50.9 Heart failure, unspecified (principal); I13.0 Hypertensive heart and chronic kidney disease with heart failure and stage 1 through stage 4 chronic kidney disease, or unspecified chronic kidney disease; E11.22 Type 2 diabetes mellitus with diabetic chronic kidney disease; J18.9 Pneumonia, unspecified organism; E11.9 Type 2 diabetes mellitus without complications; N18.9 Chronic kidney disease, unspecified; G89.29 Other chronic pain; Z88.2 Allergy status to sulfonamides; Z88.8 Allergy status to other drugs, medicaments and biological substances; I10 Essential (primary) hypertension; Z20.822 Contact with and (suspected) exposure to COVID-19
CPT/HCPCS: 0241U; 36415; 71046; 80048; 80053; 83880; 85025; 93005; 94640; 94664; 97161; 97165; A9270-GY; J0696; J1815-GY; J1940; J3490; J7620-GY

== ENCOUNTER 2022-05-25 12:50 | Inpatient (IN) | payer MEDICARE, BC ==
[2022-05-25 13:49] LABS: ANION GAP 10.6 meq/L (7-15)
[2022-05-25] MEDS ORDERED: Furosemide 20 MG/2 ML VIAL IVPUSH ONE (15:43)
[2022-05-25] MEDS: cefTRIAXone 1 GM in Sodium Chloride 0.9% 100 ML IV SCH (17:19)
[2022-05-25] MEDS: Azithromycin 500 MG in Sodium Chloride 0.9% 250 ML IV SCH (18:04)
[2022-05-25] MEDS ORDERED: Acetaminophen 325 MG Tab PO PRN (18:09)
[2022-05-25] MEDS: amLODIPine 5 MG Tab PO SCH (19:06)
[2022-05-25] MEDS: Propranolol 60 MG Cap.ER PO SCH (19:06)
[2022-05-25] MEDS: Insulin Glarg,Human.Rec.Analog 100 Unit/ML SUBCUT SCH (20:04)
[2022-05-25] MEDS: Acetaminophen 650 MG Tab.ER PO SCH (20:05)
[2022-05-25] MEDS: Albuterol/Ipratropium 3.0-0.5 MG/3 ML Neb Soln NEB SCH (20:05)
[2022-05-25] MEDS: Donepezil 5 MG Tab PO SCH (20:06)
[2022-05-25] MEDS: traMADol 50 MG Tab PO SCH (20:06)
[2022-05-26] MEDS: Enoxaparin 30 MG/0.3 ML Syringe SUBCUT SCH (07:50)
[2022-05-26] MEDS: Furosemide 20 MG/2 ML VIAL IVPUSH SCH (07:50)
[2022-05-26] MEDS: Propranolol 60 MG Cap.ER PO SCH ×2 (07:51→17:24)
[2022-05-26] MEDS: Magnesium Oxide 400 MG Tab PO SCH (07:51)
[2022-05-26] MEDS: amLODIPine 5 MG Tab PO SCH ×2 (07:51→17:23)
[2022-05-26] MEDS: Cholecalciferol (Vitamin D3) 25 MCG Tab PO SCH (07:51)
[2022-05-26] MEDS: Albuterol/Ipratropium 3.0-0.5 MG/3 ML Neb Soln NEB SCH ×2 (07:51→19:25)
[2022-05-26 08:07] LABS: ANION GAP 10.6 meq/L (7-15)
[2022-05-26] MEDS: cefTRIAXone 1 GM in Sodium Chloride 0.9% 100 ML IV SCH (15:38)
[2022-05-26] MEDS: Azithromycin 500 MG in Sodium Chloride 0.9% 250 ML IV SCH (15:42)
[2022-05-26] MEDS: traMADol 50 MG Tab PO SCH (19:25)
[2022-05-26] MEDS: Donepezil 5 MG Tab PO SCH (19:25)
[2022-05-26] MEDS: Acetaminophen 650 MG Tab.ER PO SCH (19:25)
[2022-05-26] MEDS: Insulin Glarg,Human.Rec.Analog 100 Unit/ML SUBCUT SCH (19:34)
[2022-05-27] MEDS: Propranolol 60 MG Cap.ER PO SCH ×2 (07:29→17:30)
[2022-05-27] MEDS: Magnesium Oxide 400 MG Tab PO SCH (07:29)
[2022-05-27] MEDS: Cholecalciferol (Vitamin D3) 25 MCG Tab PO SCH (07:29)
[2022-05-27] MEDS: amLODIPine 5 MG Tab PO SCH ×2 (07:30→17:30)
[2022-05-27] MEDS: Furosemide 20 MG/2 ML VIAL IVPUSH SCH (07:32)
[2022-05-27] MEDS: Enoxaparin 30 MG/0.3 ML Syringe SUBCUT SCH (07:35)
[2022-05-27] MEDS: Albuterol/Ipratropium 3.0-0.5 MG/3 ML Neb Soln NEB SCH ×2 (07:40→19:38)
[2022-05-27 08:29] LABS: ANION GAP 11.3 meq/L (7-15)
[2022-05-27] MEDS: cefTRIAXone 1 GM in Sodium Chloride 0.9% 100 ML IV SCH (16:00)
[2022-05-27] MEDS: Azithromycin 500 MG in Sodium Chloride 0.9% 250 ML IV SCH (16:32)
[2022-05-27] MEDS: Donepezil 5 MG Tab PO SCH (19:37)
[2022-05-27] MEDS: Acetaminophen 650 MG Tab.ER PO SCH (19:37)
[2022-05-27] MEDS: traMADol 50 MG Tab PO SCH (19:37)
[2022-05-27] MEDS: Insulin Glarg,Human.Rec.Analog 100 Unit/ML SUBCUT SCH (19:41)
[2022-05-28] MEDS: Magnesium Oxide 400 MG Tab PO SCH (08:16)
[2022-05-28] MEDS: Cholecalciferol (Vitamin D3) 25 MCG Tab PO SCH (08:16)
[2022-05-28] MEDS: amLODIPine 5 MG Tab PO SCH (08:19)
[2022-05-28] MEDS: Propranolol 60 MG Cap.ER PO SCH (08:19)
[2022-05-28 08:20] VITALS: BP 137/89
[2022-05-28] MEDS: Furosemide 20 MG/2 ML VIAL IVPUSH SCH (08:21)
[2022-05-28] MEDS: Enoxaparin 30 MG/0.3 ML Syringe SUBCUT SCH (08:23)
[2022-05-28] MEDS: Albuterol/Ipratropium 3.0-0.5 MG/3 ML Neb Soln NEB SCH (08:24)
[2022-05-28 08:27] LABS: ANION GAP 8.3 meq/L (7-15)
[2022-05-28 08:55] VITALS: PULSE 72
== END 2022-05-28 11:20 | DRG 194 ==
LOC: LL.ED 12:50 → LL.MS 16:20
PROVIDERS: ADMIT Emergency Medicine; ATTEND Emergency Medicine
DX: J18.9 Pneumonia, unspecified organism (principal); I13.0 Hypertensive heart and chronic kidney disease with heart failure and stage 1 through stage 4 chronic kidney disease, or unspecified chronic kidney disease; E78.00 Pure hypercholesterolemia, unspecified; I10 Essential (primary) hypertension; M06.9 Rheumatoid arthritis, unspecified; R09.02 Hypoxemia; E78.5 Hyperlipidemia, unspecified; G30.9 Alzheimer's disease, unspecified; F02.80 Dementia in other diseases classified elsewhere, unspecified severity, without behavioral disturbance, psychotic disturbance, mood disturbance, and anxiety; E11.22 Type 2 diabetes mellitus with diabetic chronic kidney disease; N18.9 Chronic kidney disease, unspecified; I50.9 Heart failure, unspecified; E11.42 Type 2 diabetes mellitus with diabetic polyneuropathy; Z79.4 Long term (current) use of insulin; Z79.1 Long term (current) use of non-steroidal anti-inflammatories (NSAID); Z79.899 Other long term (current) drug therapy; Z79.2 Long term (current) use of antibiotics; Z88.2 Allergy status to sulfonamides; Z88.8 Allergy status to other drugs, medicaments and biological substances; Z97.3 Presence of spectacles and contact lenses; Z90.49 Acquired absence of other specified parts of digestive tract; Z90.89 Acquired absence of other organs
CPT/HCPCS: 36415; 71046; 80048; 80053; 81001; 82947; 83605; 83880; 84484; 85025; 85379; 93005; 93010; 94640; 96365; 96375; 97161-GP; 97165-GO; 97530-GP; 97535-GO; 99223; 99232; 99233; 99238; 99285-25; A9270-GY; J0456; J0696; J1650; J1815-GY; J1940; J7050; J7620-GY